=== PATIENT | female | born 1960 | race Caucasian/White ===

== ENCOUNTER 2024-12-16 11:42 | Outpatient (REF) | payer BC, MEDICARE, MEDICAID, SELFPAY ==
--- OUTSIDE RECORDS SUMMARY | 2024-12-16 14:21 | XMS_ITS | Encounter Summary ---
Author Organization [facility] Address [address] [place] [address] Care Team Providers Care Car Dispatcher Name Role Phone Pcp, No Primary Care Provider Unavailabl e Encounter Details Date Type Department Care Team (Late st Contact Info) Description 08/27/2018 3:35 PM EST Hospital Encounter [facility] [address] [place] [address] Nate Ortiz MD [address] [place] [address] Social History Tobacco Use Types Packs/Day Years Used Date Smoking Tobacco: Never Smokeless Tobacco: Never Alcohol Use Standard Drinks/Week Comments No 0 (1 standard drink = 0.6 oz pur e alcohol) OASIS D0700: Social Isolation Answer Da te Recorded Frequency of experiencing loneliness or isolatio n Never 12/22/2023 OASIS A1250: Transportation Answer Date Recorded Lack of Transportation (Medical) No 12/22/2023 Lack of Transportation (Non-Medical) No 12/22/2023 Patient Unable or Declines to Respond No 12/22/2023 AUDIT-C Answer Date Recorded Q1: How often do you have a drink containing alcohol? Never 10/18/2023 Q2: How many drinks containi ng alcohol do you have on a typical day when you are drinking? Patient does not drink Q3: How often do you have si x or more drinks on one occasion? Never 10/18/2023 PHQ-2 Answer Date Recorded PHQ-2 Total Score 4 11/10/2023 Physical Activity Answer Date Recorded On average, how many days pe r week do you engage in moderate to strenuous exercise (like a brisk walk)? 0 11/10/2023 On average, how many minutes do you exercise per day at this level? 0 11/10/2023 Sex and Gender Information Value Date Recorded Sex Assigned at Female 12/24/2022 11:31 AM EST Gender Identity Female 12/24/2022 11:31 AM EST Sexual Orientation Heterosexual (straight) 01/08 12:43 PM EDT COVID-19 Exposure Response Date Recorded In the last 10 days, have yo u been in contact with someone who was confirmed or suspected to have Coronavirus/COVID-19? No / Unsure 03/31/2023 8:21 AM EDT documented as of this encounter Plan of Treatment Upcoming Encounters Date Type Department Care Team (Late st Contact Info) Description 12/22/2024 11:30 AM EST Telemedicine [facility] [address] [phone] Cris Brarett PA-C [address] [place] [phone] 12/23/2024 2:30 PM EST Office Visit [facility] Department of Pulmonology [place] [address] [place] [address] 109 [place] [phone] [place] [address] [place] [address] 105 [place] [address] 04/04/2025 3:00 PM EDT Office Visit [facility] Department of Cardiology [place] [address] [place] [phone] Brennon Galvan PA [address] [place] [address] 04/07/2025 2:15 PM EDT Office Visit [facility] Department of Internal Medicine & Nephrology [place] [address] [facility] [address] [place] [address] Lalit Rodriguez MD [address] [facility] [address] [place] [address] documented as of this encounter Procedures Procedure Name Priority Date/Time Associated Diagnosis Comments XR CHEST 2 VIEWS Routine 08/27/2018 3:50 PM EST SOB (shortness of breath) documented in this encounter Results * XR Chest 2 views (08/27/2018 3:50 PM EST) Anatomical Region Laterality Modality Chest Computed Radiogr aphy 08/27/2018 3:52 PM EST Impressions 08/27/2018 3:55 PM EST 1. No acute disease seen in chest. No change compared to 01/09/2015. 2. Prior cholecystectomy. Narrative 08/27/2018 3:55 PM EST XR CHEST - TWO VIEWS: INDICATION: 57-year-old female with the flu and shortness of breath. Assess for secondary pneumonia. COMPARISON: 01/09/2015. TECHNIQUE: Upright PA and lateral x-ray views of the chest are obtained. FINDINGS: LUNGS: Normal. No focal airspace disease to suggest pneumonia. No change compared to 01/09/2015. PLEURA: No pleural effusion. No pneumothorax. HEART: No cardiomegaly. No central pulmonary vascular congestion. ?? MEDIASTINUM: Normal. No change compared to the prior exam. SKELETON: Normal. No acute fracture. No dislocation. No change compared to the prior exam. UPPER ABDOMEN: No acute findings. No free air. No specific bowel gas pattern. Surgical clips seen in the right upper quadrant from prior cholecystectomy. Procedure Note Thanh Frey MD - 08/27/2018 XR CHEST - TWO VIEWS: INDICATION: 57-year-old female with the flu and shortness of breath. Assess forsecondary pneumonia. COMPARISON: 01/09/2015. TECHNIQUE: Upright PA and lateral x-ray views of the chest are obtained. FINDINGS: LUNGS: Normal. No focal airspace disease to suggest pneumonia. No changecompared to 01/09/2015. PLEURA: No pleural effusion. No pneumothorax. HEART: No cardiomegaly. No central pulmonary vascular congestion. MEDIASTINUM: Normal. No change compared to the prior exam. SKELETON: Normal. No acute fracture. No dislocation. No change compared tothe prior exam. UPPER ABDOMEN: No acute findings. No free air. No specific bowel gaspattern. Surgical clips seen in the right upper quadrant from priorcholecystectomy. IMPRESSION: 1. No acute disease seen in chest. No change compared to 01/09/2015. 2. Prior cholecystectomy. Susan VARELA IMG DIAGNOSTIC JEET GING ORDERABLES documented in this encounter Visit Diagnoses Not on filedocumented in this encounter Care Teams Car Dispatcher Relationship Specialty Start Date End Date Pcp, No PCP - General General Medicine 11/20/16 06/01/19 documented as of this encounter
--- OUTSIDE RECORDS SUMMARY | 2024-12-16 14:21 | XMS_ITS | Encounter Summary ---
Author Organization [facility] Address [address] [place] [address] Care Team Providers Care Clay Digger Name Role Phone Lalit Rodriguez MD Primary Care Provider Ameya Tucker MD Unavailable [phone] Mercy Montoya APRN Unavailable Encounter Details Date Type Department Care Team (Late st Contact Info) Description 12/18/2022 Scanned Document [facility] [address] [place] [phone] Pete Nagy MD [address] [phone] Social History Tobacco Use Types Packs/Day Years Used Date Smoking Tobacco: Never Smokeless Tobacco: Never Alcohol Use Standard Drinks/Week Comments No 0 (1 standard drink = 0.6 oz pur e alcohol) Sex and Gender Information Value Date Recorded Sex Assigned at Female 12/24/2022 11:31 AM EST Gender Identity Female 12/24/2022 11:31 AM EST Sexual Orientation Heterosexual (straight) 01/08 12:43 PM EDT documented as of this encounter Plan of Treatment Upcoming Encounters Date Type Department Care Team (Late st Contact Info) Description 12/22/2024 11:30 AM EST Telemedicine [facility] 5 [facility] 2nd [place] [phone] Cris Barrett PA-C [address] [phone] 12/23/2024 2:30 PM EST Office Visit [facility] Department of Pulmonology [place] 1260 [facility] 109 [place] [phone] Barbara Hewitt MD 1260 [facility] 105 [place], [place] [phone] 04/04/2025 3:00 PM EDT Office Visit [facility] Department of Cardiology [place] [address] [place] [phone] Brennon Galvan PA [address] [place] [address] 04/07/2025 2:15 PM EDT Office Visit [facility] Department of Internal Medicine & Nephrology [place] [address] [phone] Lalit Rodriguez MD [address] [phone] documented as of this encounter Visit Diagnoses Not on filedocumented in this encounter Care Teams Clay Digger Relationship Specialty Start Date End Date Lalit Rodriguez MD [address] [phone] PCP - General Nephrology 08/12/19 Mercy Montoya APRN [address] [place] [address] PCP - [place] Commercial Attributed 03/20/24 Ameya Tucker MD [address] [place] [address] [address] Cardiovascular Disease 10/23/21 documented as of this encounter
--- OUTSIDE RECORDS SUMMARY | 2024-12-16 14:21 | XMS_ITS | Encounter Summary ---
Author Organization [facility] Address [address] [place] [address] Care Team Providers Care Fire Coordinator Name Role Phone Lalit Rodriguez MD Primary Care Provider Ameya Tucker MD Unavailable [phone] Mercy Montoya APRN Unavailable Reason for Visit * Reason Comments Medication Refill Encounter Details Date Type Department Care Team (Late st Contact Info) Description 05/31/[address] [facility] [address] [phone] Shelby Fung PA [address] [place] [address] [address] [place], [place] [phone] Moderate persistent asthma without complication Social History Tobacco Use Types Packs/Day Years [...] Exposure Response Date Recorded In the last month, have you been in contact with someone who was confirmed or suspected to have Coronavirus / COVID-19? No / Unsure 05/31/2021 3:18 PM EDT documented as of this encounter Plan of Treatment Upcoming Encounters Date Type Department Care Team (Late st Contact Info) Description 12/22/2024 11:30 AM EST Telemedicine [facility] 5 [facility] 2nd [place] [phone] Cris Barrett PA-C 5 [facility] 2nd [place] [address] 12/23/2024 2:30 PM EST Office Visit [facility] Department of Pulmonology [place] [address] [place] [address] 109 [place] [phone] Barbara Hewitt MD 1260 [facility] 105 [place], [place] [phone] 04/04/2025 3:00 PM EDT Office Visit [facility] Department of Cardiology [place] [address] [place] [phone] Brennon Galvan PA 289 [place] [address] 04/07/2025 2:15 PM EDT Office Visit [facility] Department of Internal Medicine & Nephrology [place] 85 [facility] [address] [place] [phone] Lalit Rodriguez MD 85 [facility] [address] [place], [place] [phone] documented as of this encounter Visit Diagnoses Diagnosis Moderate persistent asthma without complication documented in this encounter Care Teams Fire Coordinator Relationship Specialty Start Date End Date Lalit Rodriguez MD 85 [facility] 900 [place], [place] [phone] PCP - General Nephrology 08/12/19 Mrecy Montoya APRN 65 [place] [address] PCP - [place] Commercial Attributed 03/20/24 Ameya Tucker MD 1260 [facility] [place] [address] Cardiovascular Disease 10/23/21 documented as of this encounter
--- OUTSIDE RECORDS SUMMARY | 2024-12-16 14:21 | XMS_ITS | Encounter Summary ---
Author Organization [facility] Address [address] [place] [address] Care Team Providers Care Sales And Service Agent Name Role Phone Lalit Rodriguez MD Primary Care Provider Ameya Tucker MD Unavailable [phone] Mercy Montoya APRN Unavailable [phone] Reason for Visit * Reason Comments Medication Refill Encounter Details Date Type Department Care Team (Late st Contact Info) Description 12/20/[address] [facility] [address] [phone] Bhupinder Christopher MD [address] [place] [address] 207 [place], [place] [phone] Mild persistent asthma without complication Social History Tobacco [...] suspected to have Coronavirus/COVID-19? No / Unsure 12/23/2022 4:55 PM EST documented as of this encounter Plan of Treatment Upcoming Encounters Date Type Department Care Team (Late st Contact Info) Description 12/22/2024 11:30 AM EST Telemedicine [facility] 5 [facility] 2nd [place] [phone] Cris Barrett PA-C [address] [phone] 12/23/2024 2:30 PM EST Office Visit [facility] Department of Pulmonology [place] [address] [place] [address] 109 [place] [phone] Barbara Hewitt MD 1260 [facility] 105 [place], [place] [phone] 04/04/2025 3:00 PM EDT Office Visit [facility] Department of Cardiology [place] [address] [place] [phone] Brennon Galvan PA [address] [place] [address] 04/07/2025 2:15 PM EDT Office Visit [facility] Department of Internal Medicine & Nephrology [place] 85 [facility] [address] [place] [phone] Lalit Rodriguez MD 85 [facility] [address] [place], [place] [phone] documented as of this encounter Visit Diagnoses Diagnosis Mild persistent asthma without complication documented in this encounter Care Teams Sales And Service Agent Relationship Specialty Start Date End Date Lalit Rodriguez MD 85 [facility] [address] [place], [place] [phone] PCP - General Nephrology 08/12/19 Mercy Montoya APRN 65 [place] [address] PCP - [place] Commercial Attributed 03/20/24 Ameya Tucker MD 1260 [place] [address] Cardiovascular Disease 10/23/21 documented as of this encounter
--- OUTSIDE RECORDS SUMMARY | 2024-12-16 14:21 | XMS_ITS | Patient Health Record ---
Author Organization [facility] Address [address] [place] [address] Care Team Providers Care Pin Or Clip Fastener Name Role Phone ANDRE RODRÍGUEZ Unavailable [phone] REASON FOR REFERRAL No Information Encounters Encounter Location Date Provider Diagnosis [facility] [address] [place] [address] 03/26/2024 ANDRE RODRÍGUEZ PLAN OF TREATMENT No Information Insurance Providers Payer Name Payer Address Payer Phone Subscriber Number Group Number Insured Name Patient Relationship to Insured Coverage Start Date Coverage End Date [facility] [address] [place] [address] [phone] [id number] Roxanne Beal Self - patient is the insured
--- OUTSIDE RECORDS SUMMARY | 2024-12-16 14:21 | XMS_ITS ---
Author Name [facility] History of Medication Use Medication Directions Dispensed Refills Start Date End Date [facility] betamethasone acetate-betamethason e sodium phosphate (CELESTONE) injection 12 mg 12 mg, Intra-articular, Once PRN Procedure, Starting on Mervat 11/18/24 at 1345, For 1 dose 11/18/2024 11/18/2024 completed amLODIPine (NORVASC) 10 MG tablet Take 1 tablet (10 mg total) by mouth daily. 05/10/2021 10/07/2023 active hydrALAZINE (APRESOLINE) 10 MG tablet Take 1 tablet (10 mg total) by mouth 3 (three) times a day with meals. 03/03/2023 04/15/2023 active ubrogepant (Ubrelvy) 100 MG tablet Take 1 tablet (100 mg total) by mouth once as needed for migraine. Take 1 tablet as needed for migraine, may repeat 1 tablet in 2 hours if needed. Max of 2 tablets in 24 hours. 11/10/2023 active estradiol (ESTRACE) 0.01 % vaginal cream Insert 1 g into the vagina 2 (two) times a week. 04/17/2023 10/27/2023 active metoPROLOL SUCCINATE (TOPROL-XL) 50 MG 24 hr tablet Take 1 tablet (50 mg total) by mouth nightly. 05/10/2021 04/01/2023 active ARIPiprazole (ABILIFY) 15 MG tablet 10/29/2017 active hydrocortisone (HYTONE) 2.5 % ointment Apply topically 2 (two) times a day. 04/28/2023 active famotidine (PEPCID) 20 MG tablet Take 1 tablet (20 mg total) by mouth daily. 07/09/2022 active lisinopril (PRINIVIL,ZeSTRIL) 20 MG tablet Take 1 tablet (20 mg total) by mouth daily. 04/28/2023 05/01/2023 aborted LORazepam (ATIVAN) 0.5 MG tablet TAKE 1 TABLET BY MOUTH EVERY 4 HOURS NEEDED FOR ANXIETY 09/23/2023 10/27/2023 active LORazepam (ATIVAN) 1 MG tablet Take 1 tablet (1 mg total) by mouth 3 times daily (every 8 hours) as needed for anxiety. 10/29/2023 active Blood Pressure Kit Please check twice daily I10 I48.91 I67.1 R55 03/03/2024 active aspirin enteric coated (ECOTRIN LOW STRENGTH) 81 MG EC tablet Take 81 mg by mouth. 02/12/2024 active Arnuity Ellipta 200 MCG/ACT inhaler INHALE 1 PUFF BY MOUTH ONCE DAILY RINSE MOUTH AFTER USE 09/16/2023 12/16/2023 aborted ubrogepant (Ubrelvy) 50 MG tablet Take by mouth once as needed. 11/21/2021 05/23/2023 active zolpidem (AMBIEN) 10 MG tablet Take 10 mg by mouth nightly as needed. 10/29/2017 active pregabalin (LYRICA) 150 MG capsule Take 1 capsule (150 mg total) by mouth 2 (two) times a day. active Problems Problem Status Onset Date Problem Type Date of Resolution Source Cerebral aneurysm active 2011-02-20 [facility] Migraine with aura and with status migrainosus, not intractable active EncounterDiagnosisAct [facility] Syncope active 2023-10-18 Problem[facility] Asthma active 2015-03-02 ProblemAct [facility] Hyperlipidemia active 2023-04-[address] Trigeminal neuralgia active 2011-02-20 ProblemAct [facility] Benign essential hypertension active 2023-04-18 ProblemAct [facility] Allergic to radiographic dye active 2019-12-15 ProblemAct [facility] Mixed anxiety depressive disorder active 2009-11-09 ProblemAct [facility] ANDREA on CPAP active 2010-02-09 ProblemAct [facility] Headache active 2016-06-26 ProblemAct [facility] Immunizations Vaccine Date Source Lot Number Status Influenza, Quadrivalent (FLU ARIX, AFLURIA, FLULAVAL, FLUZONE) Preservative Free IM 10/23/2022 [facility] [id number] completed Tdap 02/20/2011 [facility] [id number] completed Influenza Inactivated/Split Preservative Free IM 08/10/2020 [facility] [id number] completed Influenza (AFLURIA/FLUZONE) Inactivated/Split Quadrivalent with Preservative IM 07/05/2021 [facility] [id number] completed Zoster Vaccine Recombinant (Shingrix) 03/05/2022 [facility] completed Pneumococcal Polysaccharide 23-Valent 12/15/2019 [facility] [id number] completed Influenza Inactivated/Split Preservative Free IM 07/05/2021 [facility] [id number] completed Zoster Vaccine Recombinant (Shingrix) [facility] Tdap 12/27/2021 [facility] completed
--- OUTSIDE RECORDS SUMMARY | 2024-12-16 14:21 | XMS_ITS | Clinical Summary ---
Author Organization [facility] Address [address] [place] [address] Care Team Providers Care Pipe Organ Builder Name Role Phone Vijaya Love NP Primary Care Provider [phone] Allergies Active Allergy Reactions Criticality Noted Date Comments Ciprofloxacin 11/10/2018 Codeine 11/10/2018 Hydromorphone 11/10/2018 Morphine 11/10/2018 Oxycodone-Acetaminophen 11/10/2018 Medications Medication Sig Dispensed Refills Start Date End Date Status albuterol (PROVENTIL HFA;VENTOLIN HFA) 108 (90 Base) MCG/ACT inhaler Inhale 2 puffs into the lungs every 6 (six) hours as needed for wheezing. 0 Active ARIPiprazole (ABILIFY) 15 MG tablet Take 15 mg by mouth daily. 0 Active aspirin 325 MG tablet Take 325 mg by mouth daily. 0 Active buPROPion (WELLBUTRIN SR) 150 MG 12 hr tablet Take 150 mg by mouth. 0 Active buPROPion (WELLBUTRIN XL) 300 MG 24 hr tablet Take 300 mg by mouth daily. 0 Active ClonazePAM (KLONOPIN PO) Take 3 mg by mouth 3 (three) times a day. 3 mg As needed for anxiety 0 Active cloNIDine (CATAPRES) tablet 0.1 mg Take 0.1 mg by mouth 2 (two) times a day. 0 Active gabapentin (NEURONTIN) 600 MG tablet Take 1,200 mg by mouth 4 (four) times a day. 0 Active lamoTRIgine (LAMICTAL) 100 MG tablet Take 200 mg by mouth 2 (two) times a day. 0 Active predniSONE (DELTASONE) tablet 20 mg Take 40 mg by mouth. Pt states she takes this as needed for asthma 0 Active omeprazole (PriLOSEC) 20 MG capsule Take 40 mg by mouth daily. Pt states that she takes this as needed 0 Active phenazopyridine (PYRIDIUM) 100 MG tablet Take 1 tablet (100 mg total) by mouth 3 (three) times a day after meals. 10 tablet 0 11/11/2018 Active ibuprofen (ADVIL,MOTRIN) 600 MG tablet Take 1 tablet (600 mg total) by mouth every 6 (six) hours as needed. 40 tablet 0 11/11/2018 Active Active Problems Problem Noted Date Diagnosed Date Left wrist pain 05/01/2018 Social History Tobacco Use Types Packs/Day Years Used Date Smoking Tobacco: Never Smokeless Tobacco: Never Alcohol Use Standard Drinks/Week Comments No 0 (1 standard drink = 0.6 oz pur e alcohol) Sex and Gender Information Value Date Recorded Sex Assigned at Female 11/10/2018 10:37 PM EST Gender Identity Not on file Sexual Orientation Not on file Last Filed Vital Signs Vital Sign Reading Time Taken Comments Blood Pressure 116/81 11/10/2018 10:01 PM EST Pulse 94 11/10/2018 10:01 PM EST Temperature 37.9 ??C (100.3 ??F) 11/10/2018 10:01 PM EST Respiratory Rate 20 11/10/2018 10:01 PM EST Oxygen Saturation 98% 11/10/2018 10:01 PM EST Inhaled Oxygen Concentration - - Weight - - Height - - Body Mass Index - - Plan of Treatment Health Maintenance Due Date Last Done Comments Hepatitis C Screening 1960 COVID-19 Vaccine (#1) 06/28/1961 Depression Screening 1972 Preventative Health Evaluation 1978 DTap / Tdap / Td (1 - Tdap) 12/27/1979 Cervical Cancer Screening (P ap Smear) 1981 Colon Cancer Screening (Colonoscopy) 2005 Breast Cancer Screening (Mammogram) 2010 Shingrix-Zoster Vaccine (1 of 2) 2010 Influenza Vaccine (#1) 2024 RSV Adult > 60+ Yrs or Pregn ant (1 - 1-dose 75+ series) 12/27/2035 Hepatitis B Vaccines Aged Out No long er eligible based on patient's age to complete this topic Pneumococcal Vaccine Aged Out No long er eligible based on patient's age to complete this topic RSV Ped < 20 months Aged Out No longe r eligible based on patient's age to complete this topic Care Teams Pipe Organ Builder Relationship Specialty Start Date End Date Vijaya Love NP [address] [place] [address] PCP - General Gerontology 11/10/18
--- OUTSIDE RECORDS SUMMARY | 2024-12-16 14:21 | XMS_ITS | Encounter Summary ---
Author Organization [facility] Address [address] [place] [address] Care Team Providers Care Sports Analyst Name Role Phone Lalit Rodriguez MD Primary Care Provider [phone] Ameya Tucker MD Unavailable [phone] Mercy Montoya APRN Unavailable Encounter Details Date Type Department Care Team (Late st Contact Info) Description 02/26/2024 Scanned Document [facility] Department [facility] Medicine & Nephrology [place] [address] [phone] Lalit Rodriguez MD 85 [facility] 900 [place] [address] Social History Tobacco Use Types Packs/Day Years [...] Description 12/22/2024 11:30 AM EST Telemedicine [facility] [address] [phone] Cris Barrett PA-C [address] [place] [phone] 12/23/2024 2:30 PM EST Office Visit [facility] Department of Pulmonology [place] [address] [place] [address] [address] [place] [phone] [place] [address] [place] [address] 105 [place] [address] 04/04/2025 3:00 PM EDT Office Visit [facility] Department of Cardiology [place] [address] [place] [phone] Brennon Galvan PA [address] [place] [address] 04/07/2025 2:15 PM EDT Office Visit [facility] Department of Internal Medicine & Nephrology [address] [phone] Lalit Rodriguez MD [address] [place] [phone] documented as of this encounter Visit Diagnoses Not on filedocumented in this encounter Care Teams Sports Analyst Relationship Specialty Start Date End Date Lalit Rodriguez MD [address] [place] [phone] PCP - General Nephrology 08/12/19 Mercy Montoya APRN [address] [place] [address] PCP - [place] Commercial Attributed 03/20/24 Ameya Tucker MD [address] [address] Cardiovascular Disease 10/23/21 documented as of this encounter
--- OUTSIDE RECORDS SUMMARY | 2024-12-16 14:21 | XMS_ITS | Encounter Summary ---
Author Organization Formerly [facility] Address [address] [place] [address] Care Team Providers Care Svp Research And Strategic Analysis Name Role Phone Lalit Rodriguez MD Primary Care Provider Ameya Tucker MD Unavailable [phone] Mercy Montoya APRN Unavailable [phone] Encounter Details Date Type Department Care Team (Late st Contact Info) Description 02/26/2024 Scanned Document [facility] Department [facility] & Nephrology [place] [address] [phone] Lalit Rodriguez MD 85 [facility] [address] [place] [address] Social History Tobacco Use Types [...] Description 12/22/2024 11:30 AM EST Telemedicine [facility] [address] [phone] Cris Barrett PA-C [address] [place] [phone] 12/23/2024 2:30 PM EST Office Visit [facility] Department of Pulmonology [place] [address] [place] [address] [address] [place] [phone] [place] [address] [place] [address] [address] [place] [address] 04/04/2025 3:00 PM EDT Office Visit [facility] Department of Cardiology [place] [address] [place] [phone] Brennon Galvan PA [address] [place] [phone] 04/07/2025 2:15 PM EDT Office Visit [facility] Department of Internal Medicine & Nephrology [address] [phone] Lalit Rodriguez MD [address] [place] [phone] documented as of this encounter Visit Diagnoses Not on filedocumented in this encounter Care Teams Svp Research And Strategic Analysis Relationship Specialty Start Date End Date Lalit Rodriguez MD [address] [place] [phone] PCP - General Nephrology 08/12/19 Mercy Montoya APRN [address] [place] [phone] PCP - [place] Commercial Attributed 03/20/24 Ameya Tucker MD [address] [address] Cardiovascular Disease 10/23/21 documented as of this encounter
--- OUTSIDE RECORDS SUMMARY | 2024-12-16 14:21 | XMS_ITS | Encounter Summary ---
Author Organization [facility] Address [address] [place] [address] Care Team Providers Care Sap Bw Consultant Name Role Phone Lalit Rodriguez MD Primary Care Provider Ameya Tucker MD Unavailable [phone] Mercy Montoya APRN Unavailable Encounter Details Date Type Department Care Team (Late st Contact Info) Description 03/02/2024 Scanned Document [facility]phrology [place] [address] [phone] Lalit Rodriguez MD 85 [facility] [address] [place] [address] Social History Tobacco Use Types [...] Description 12/22/2024 11:30 AM EST Telemedicine [facility] [address] [phone] Cris Barrett PA-C [address] [place] [phone] 12/23/2024 2:30 PM EST Office Visit [facility] Department of Pulmonology [place] [address] [place] [address] [address] [place] [phone] [place] [address] [place] [address] [address] [place] [address] 04/04/2025 3:00 PM EDT Office Visit [facility] Department of Cardiology [place] [address] [place] [phone] Brennon Galvan PA [address] [place] [phone] 04/07/2025 2:15 PM EDT Office Visit [facility] Department of Internal Medicine & Nephrology [address] [phone] Lalit Rodriguez MD [address] [place] [phone] documented as of this encounter Visit Diagnoses Not on filedocumented in this encounter Care Teams Sap Bw Consultant Relationship Specialty Start Date End Date Lalit Rodriguez MD [address] [place] [phone] PCP - General Nephrology 08/12/19 Mercy Montoya APRN [address] [place] [phone] PCP - [place] [employer] Attributed 03/20/24 Ameya Tucker MD [address] [address] Cardiovascular Disease 10/23/21 documented as of this encounter
--- OUTSIDE RECORDS SUMMARY | 2024-12-16 14:21 | XMS_ITS | Data Portability ---
Author Organization [place] - [facility], [facility] Address [address] [place] [address] Assessment Encounter Date Assessment Date Assessment LastModified by Organization Details LastModified Time 12/19/2015 12/19/2015 1.Normal general exam. 2.Yearly pelvic exam and mammogram recommended. 3. Healthy diet and exercise recommended. 4. 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 5. Screening for colon cancer with colonoscopy discussed and recommended. BMD ordered- Ca and D- will stop estrace cream [email or web address] Not available 12/19/2015 11:21:32 12/19/2016 12/19/2016 ? N ormal telephone station repairer exam. Encouraged healthy diet, excercise. Mammo ordered. Discussed breast self examination- aware that elevated b/p , will call PCP- will need colonoscopy f/u for polyps Not available 12/19/2016 12:07:24 07/28/2018 07/28/2018 Normal telephone station repairer exam. Encouraged healthy diet, excercise. Mammo ordered. Discussed breast self examination [email or web address] Not available 07/28/2018 12:00:10 Plan of Treatment Reminders Order Date Submit Date Provider Last Modified By Organization Details Last Modified Time Details Appointments None recorded. Lab urinalysis , dipstick 2017 018 [id number] In-Office Order, Internal Use Only DO Not Attach Compendium DO Not Attach Compendium, Do Not Delete/merge, [id number] 15:05:14 urinalysis , dipstick 2016 017 [email or web address] In-Office Order, Internal Use Only DO Not Attach Compendium DO Not Attach Compendium, Do Not Delete/merge, [id number] 7 14:26:10 urinalysis , dipstick 2015 016 [email or web address] In-Office Order, Internal Use Only DO Not Attach Compendium DO Not Attach Compendium, Do Not Delete/merge, [id number] 6 12:39:19 Referral None recorded. Procedures None recorded. Surgeries None recorded. Imaging DEXA, axial skeleton 2017 018 LV Not available 9 10:26:00 MAMMO, screening, digital, bilateral, w/ CAD 2016 017 LV Not available 7 10:06:52 bone density, hip and spine 2015 016 LV Not available 6 17:56:51 Medication Orders None recorded. Patient TargetsNo targets recorded. Patient Instructions Encounter Date Encounter Id Patient Instructions Last Modified By Organization Details Last Modified Time 12/19/2015 [id number] 1.Normal general exam. 2.Yearly pelvic exam and mammogram recommended. 3. Healthy diet and exercise recommended. 4. 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 5. Screening for colon cancer with colonoscopy discussed and recommended. BMD ordered- Ca and D- will stop estrace cream [email or web address] Not available 12/19/2015 11:21:32 1.Normal general exam. 2.Yearly pelvic exam and mammogram recommended. 3. Healthy diet and exercise recommended. 4. 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 5. Screening for colon cancer with colonoscopy discussed and recommended. BMD ordered- Ca and D- will stop estrace cream Not available 12/19/2015 11:21:32 12/19/2016 [id number] ? Normal telephone station repairer exam. Encouraged healthy diet, excercise. Mammo ordered. Discussed breast self examination- aware that elevated b/p , will call PCP- will need colonoscopy f/u for polyps [email or web address] Not available 12/19/2016 12:07:29 ? Normal telephone station repairer exam. Encouraged healthy diet, excercise. Mammo ordered. Discussed breast self examination- aware that elevated b/p , will call PCP- will need colonoscopy f/u for polyps [email or web address] Not available 12/19/2016 12:07:27 Reason for Referral None Reported. Results Created Date Observation Date Name Description Value Unit Range Abnormal Flag Note LastModifiedBy Organization Detail LastModifiedTime 12/20/19 17 12/19/2016 urina lysis , dipst ick Interpretati on negati ve Not Available In-Office Order Internal Use Only DO Not Attach Compendium DO Not Attach Compendium, Do Not Delete/merge, [id number] 12/19/2016 11:44:11 12/20/19 17 12/19/2016 urina lysis , dipst ick Leukocytes Negati ve Not Available In-Office Order Internal Use Only DO Not Attach Compendium DO Not Attach Compendium, Do Not Delete/merge, [id number] 12/19/2016 11:44:11 12/20/19 17 12/19/2016 urina lysis , dipst ick Nitrite negati ve Not Available In-Office Order Internal Use Only DO Not Attach Compendium DO Not Attach Compendium, Do Not Delete/merge, [id number] 12/19/2016 11:44:11 12/20/19 17 12/19/2016 urina lysis , dipst ick Protein Negati ve Not Available In-Office Order Internal Use Only DO Not Attach Compendium DO Not Attach Compendium, Do Not Delete/merge, [id number] 12/19/2016 11:44:11 12/20/19 17 12/19/2016 urina lysis , dipst ick Glucose Negati ve Not Available In-Office Order Internal Use Only DO Not Attach Compendium DO Not Attach Compendium, Do Not Delete/merge, [id number] 12/19/2016 11:44:11 12/19/19 16 12/19/2015 urina lysis , dipst ick Interpretati on negati ve Not Available In-Office Order Internal Use Only DO Not Attach Compendium DO Not Attach Compendium, Do Not Delete/merge, 12/19/2015 11:06:21 01/13/20 16 01/13/2016 creat inine w/ estim ated GFR (eGFR ), serum or plasm a creatinine 0.9 mg/dL 0.4-1. 1 Not Available [facility] [address] [place], [address] 01/13/2016 22:55:19 01/13/20 16 01/13/2016 creat inine w/ estim ated GFR (eGFR ), serum or plasm a eGFR 65 >59 MDRD in mL/mi n/1.7 3 sq meter s. For Afric an [employer] cans, multi ply by 1.21. Not Available [facility] [address] [place], [place], [facility] 01/13/2016 22:55:19 01/13/20 16 01/13/2016 calci um, serum or plasm a calcium 9.8 mg/dL 8.7-10 .5 Not Available [facility] [address] [place] [address], [facility] 01/13/2016 22:55:20 01/13/20 16 01/13/2016 alkal ine phosp hatas e, serum or plasm a alkaline phosphatase 85 U/L 32-122 Not Available [facility] [address] [place] [address], [facility] 01/13/2016 22:55:21 01/13/20 16 01/13/2016 album in, serum or plasm a albumin 4.6 g/dL 3.5-5. 0 Not Available [facility] [address] [place], [place], [facility] 01/13/2016 22:55:21 01/13/20 16 01/13/2016 TSH, ultra -sens itive , serum TSH, highly sensitive 0.68 mIU/L 0.27-4 .20 Not Available [facility] [address] [place] [address], [facility] 01/13/2016 22:55:22 01/13/20 16 01/13/2016 PTH (para thyro id hormo ne), intac t, serum or plasm a PTH, intact 56 pg/mL 15-65 Not Available [facility] [address] [place], [place], [facility] 01/13/2016 22:55:22 01/13/20 16 01/13/2016 vitam in D, 25-hy droxy , total , serum vitamin D, 25-hydroxy 34 NG/mL 30-100 Inter preti ve Data <10 ng/mL Defic ient 10-29 ng/mL Insuf ficie nt 30-10 0 ng/mL Suffi cient >100 ng/mL Poten tial Intox icati on Not Available [facility] [address] [facility], [place], [address] 01/13/2016 22:55:22 07/28/20 18 07/28/2018 urina lysis , dipst ick Leukocytes Negati ve Not Available In-Office Order Internal Use Only DO Not Attach Compendium DO Not Attach Compendium, Do Not Delete/merge, [id number] 07/28/2018 11:30:09 07/28/20 18 07/28/2018 urina lysis , dipst ick Nitrite negati ve Not Available In-Office Order Internal Use Only DO Not Attach Compendium DO Not Attach Compendium, Do Not Delete/merge, [id number] 07/28/2018 11:30:09 07/28/20 18 07/28/2018 urina lysis , dipst ick Protein Negati ve Not Available In-Office Order Internal Use Only DO Not Attach Compendium DO Not Attach Compendium, Do Not Delete/merge, [id number] 07/28/2018 11:30:09 07/28/20 18 07/28/2018 urina lysis , dipst ick Glucose Negati ve Not Available In-Office Order Internal Use Only DO Not Attach Compendium DO Not Attach Compendium, Do Not Delete/merge, [id number] 07/28/2018 11:30:09 01/01/20 16 12/28/2015 bone densi ty, hip and spine No observ ation record ed. [facility] [place] [address] [place] [address] [facility], [place], [address], 01/02/2016 14:35:10 01/15/20 17 01/13/2017 MAMMO , scree alejandra, digit al, bilat eral, w/ CAD HISTOR Y: Ambreen frye is 56 years old and is seen for screen ing. The vivianeen t has a histor y of bilate ral breast reduct ion more than 10 years ago - benign . The patien t has no person al histor y of breast or ovaria n cancer . The ambreen t has the follow ing family histor y of breast cancer : sister , at age 43 and patern al aunt. FILMS COMPAR ED: The presen t examin ation has been compar ed to prior imagin g griselie s dated 2014, 2001 and 2000. MAMMOG VALERIA FINDIN GS: The follow ing digita l mammog raphic views were obtain ed: bilate ral cranio caudal , bilate ral mediol ateral obliqu e. There are scatte red fibrog landul ar densit ies. (ACR BIRADS densit y Catego ry b) * No suspic ious masses , calcif icatio ns or other abnorm alitie s are seen in either breast . There are no signif icant change s from the prior study. Comput er-aid ed detect ion was utiliz ed by the radiol ogist in the interp retati on of this examin ation. IMPRES JOHN: There is no mammog raphic eviden ce of malign kelli. Routin e follow -up mammog valeria in 1 year is recomm ended. The patien t will receiv e a lay summar y of the result s of this breast imagin g exam. Lay summar ies for mammog jane examin ations will also identi fy the patien ts person al breast tissue compos ition as requir ed by state law. BIRADS Catego ry 1: Negati ve *BREAS T COMPOS ITION Breast compos ition descri ptions are based on the standa rd practi ce guidel victorino of the ACR [facility]-RAD S [place]. A refere nce guide is provid ed below. BREAST COMPOS ITION CATEGO PRINCESS - BIRADS VERSIO N V a. The breast s are almost entire ly fatty. b. There are scatte red areas of fibrog landul ar densit y. c. The breast s are hetero geneou sly dense, which may obscur e small masses . d. The breast s are extrem dorina dense, which lowers the sensit ivity of mammog jane. Patien ts in catego princess c. and d. may qualif y for supple mental screen ing exams. Thank you for referr ing your patien t to us, Elisa paul D.O. (Elect jerald bernice Signed - 2016 09:58) Copy: ROXY Mishra MD [facility] [address] [facility] [address] [place] [address] [phone] [email or web address] [facility] [place] [address], [place], [address], 01/15/2017 08:14:30 03/03/20 18 02/28/2018 MAMMO , scree alejandra, digit al, bilat eral, w/ CAD HISTOR Y: Ambreen frye is 57 years old and is seen for screen ing. The patien t has a histor y of bilate ral breast reduct ion more than 10 years ago - benign . The patien t has no person al histor y of breast or ovaria n cancer . The patien t has the follow ing family histor y of breast cancer : sister , at age 43 and patern al aunt. FILMS COMPAR ED: The presen t examin ation has been compar ed to prior imagin g studie s dated 2016 and 2014. MAMMOG VALERIA FINDIN GS: The follow ing digita l mammog raphic views were obtain ed: bilate ral cranio caudal , bilate ral mediol ateral obliqu e. There are scatte red fibrog landul ar densit ies. (ACR BIRADS densit y Catego ry b) * No suspic ious masses , calcif icatio ns or other abnorm alitie s are seen in either breast . There are no signif icant change s from the prior study. Comput er-aid ed detect ion was utiliz ed by the radiol ogist in the interp retati on of this examin ation. IMPRES JOHN: There is no mammog raphic eviden ce of malign kelli. Routin e follow -up mammog valeria in 1 year is recomm ended. The patien t will receiv e a lay summar y of the result s of this breast imagin g exam. Lay summar ies for mammog jane examin ations will also identi fy the patien ts person al breast tissue compos ition as requir ed by state law. BIRADS Catego ry 1: Negati ve Thank you for referr ing your ambreen t to us, Saman Tesfaye MD [phone] (Elect jerald bernice Signed - 2017 06:59) Copy: KAROL DUMONT R [facility] [address] [facility] [address] [facility] [address] [place] [place] [address] [phone] ZAC CRUZ NP [facility] [address] [place] [address] [phone] [email or web address] [facility] [address] [facility], [place], [address], 03/03/2018 09:40:11 05/17/20 19 05/14/2019 DEXA, axial skele ton EXAMIN ATION: BONE DENSIT OMETRY CLINIC AL INDICA TION: Osteop enia. Other specif ied disord ers of bone densit y and struct ure. COMPAR CHEMA: Previo us BD dated 2015 and baseli ne BD dated 2004. TECHNI QUE: Dual-e nergy x-ray absorp tiomet ry was perfor med of the lumbar spine and left hip. The images are of good techni prtaibha qualit y. Summar y result s are attach ed. FINDIN GS: AP SPINE L1-L4: Curren t: BMD 1.156 g/cm2, Z-scor e 0.6, T-scor e -0.2, normal , 3.8% decrea se from previo us, 7.4% decrea se from baseli ne (<5% change is not signif icant) . Prior: BMD 1.202 g/cm2. Baseli ne: BMD 1.249 g/cm2. LEFT FEMUR, NECK: Curren t: BMD 0.781 g/cm2, Z-scor e -0.9, T-scor e -1.9, osteop enia. Prior: BMD 0.794 g/cm2. Baseli ne: BMD 0.954 g/cm2. LEFT FEMUR, TOTAL: Curren t: BMD 0.853 g/cm2, Z-scor e -0.6, T-scor e -1.2, osteop enia, 1.6% decrea se from previo us, 8.3% decrea se from baseli ne (<5% change is not signif icant) . Prior: BMD 0.867 g/cm2. Baseli ne: BMD 0.930 g/cm2. IDENTI FIED RISK FACTOR S: Bilate ral oophor ectomy . Hyster ectomy . Low calciu m intake . Osteop orosis Early menopa use. Second andres osteop orosis . HISTOR Y OF FRACTU RE: None listed . MEDICA TIONS: None listed . IMPRES JOHN: 1. DIAGNO SIS: Osteop enia based on the lowest T-scor e value of -1.9 in the femora l neck applyi ng World Health Organi zation criter ia. 2. 10-YEA R FRACTU RE RISK PREDIC TION, FRAX: Major osteop orotic fractu re (clini pratibha spine, forear m, hip or should er) 4.6%. Hip fractu re 0.5%. RECOMM ENDATI ONS: 1. Treatm ent Recomm endati ons: NOF guidel victorino recomm end consid eratio n for treatm ent in postme nopaus al women and men age 50 and older presen kamala with the follow ing: -A hip or verteb ral (clini pratibha or morpho metric ) fractu re. -T-sco re less than or equal to -2.5 at the femora l neck or spine after approp riate evalua tion to exclud e second andres causes . -Low bone mass at the hip or spine and a 10-yea r fractu re probab ility by FRAX of greate r than or equal to 3% for hip fractu re or greate r than or equal to 20% for major osteop orotic fractu re based on the [place] adapte d WHO algori thm. 2. Other Recomm endati ons: All treatm ent decisi ons requir e clinic al judgme nt and consid eratio n of indivi dual patien t factor s, includ ing patien t prefer ences, comorb iditie s, previo us drug use, risk factor s not captur ed in the FRAX model (e.g. frailt y, falls, vitami n D defici ency, increa sed bone turnov er, interv al signif icant declin e in bone densit y) and possib le under or overes timati on of fractu re risk by FRAX. 3. Future Scan Recomm endati on: People with diagno sed cases of osteop orosis or at high risk for fractu re should have regula r bone minera l densit y tests. For patien ts eligib le for Medica re, routin e testin g is allowe d once every 2 years. The testin g freque ncy can be increa sed to one year for patien ts who have rapidl y progre ssing diseas e, those who are receiv ing or discon tinuin g medica l therap y to restor e bone mass, or have additi onal risk factor s. Thank you for referr ing your patien t to us, Sirisha Mckeon MD [phone] (Elect jerald queen Signed - 2018 10:21) [facility] [address] [place], [address], 05/19/2019 12:54:16 Result Notes None recorded. 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 Procedures Surgical History Date Name Laterality Status Provider Name and Address Organization Details Recorded Time 02/29/20 18 Date of Last Mammogram completed [facility] 07/28/2018 08:07:07 12/03/19 17 Date of Last Colonoscopy completed [facility] 01/08/2018 14:39:50 12/19/19 16 [id number] completed KAROL STANTON MD [address] [place] [address], [address] Floor, [place], [address], [place] - [facility] 12/19/2015 11:20:52 12/19/19 16 [id number] completed KAROL STANTON MD [address] [facility], [address] [place] [address], [place], [address], [place] - [facility] 12/19/2015 11:20:52 12/19/19 16 [id number] completed KAROL STANTON MD 175 [facility], [address] [place] [address], [place], [address], [place] - [facility] 12/19/2015 11:20:52 Hysterectomy completed Celina Conklin [place] - [facility] 01/08/2018 14:40:50 Breast Surgery completed [facility] 01/08/2018 14:41:04 Imaging Results Imaging Date Name Status LastModified by Organiz ation Details LastModified Time 12/28/2015 bone density, hip and spine completed [facility] [address] [place], [address], 01/02/2016 14:35:10 01/13/2017 MAMMO, screening, digital, bilateral, w/ CAD completed [address], [address], 01/15/2017 08:14:30 02/28/2018 MAMMO, screening, digital, bilateral, w/ CAD completed [address] [place] [address], [address], 03/03/2018 09:40:11 05/14/2019 DEXA, axial skeleton completed [facility] [address] [place], [address], 05/19/2019 12:54:16 Procedure Notes None recorded. Medical Equipment None Reported. Allergies Allergen ID Allergen Name Allergen Category Reaction Reaction Severity Criticality Documentation Date Start Date Code Code System Note Provider Name and Address Organization Details Recorded Time 9689176 latex environme nt,medica tion Not available Not available Not available 07/28/2018 35062 91 RxNorm Celina Conklin null, [facility] 8 11:30:51 359590 Iodinated contrast media (substanc e) medicatio n Not available Not available Not available 12/19/2015 57374 2004 SNOMED Bharti Henao null, [facility] 6 11:04:16 839519 codeine medicatio n Not available Not available Not available 12/19/2015 2670 RxNorm Bharti Henao null, [facility] 6 11:04:16 710579 morphine medicatio n Not available Not available Not available 12/19/2015 7052 RxNorm Bharti Henao null, [facility] 6 11:04:16 373038 iodine medicatio n Not available Not available Not available 12/19/2015 5933 RxNorm Bharti Henao null, [facility] 6 11:04:16 806344 Tylox medicatio n Not available Not available Not available 12/19/2015 19730 5 RxNorm Bharti Henao null, [facility] 6 11:04:16 Medications Name Sig Start Date Stop Date Status Note LastModified by Organization Details LastModified Time amoxicillin 500 mg capsule 07/28 completed Not Available Not Available Not Available clonidine HCl 0.1 mg tablet active Not Available Not Available Not Available gabapentin 600 mg tablet active Not Available Not Available Not Available albuterol sulfate 2.5 mg/3 mL (0.083 %) solution for nebulizatio n 07/28 completed Not Available Not Available Not Available azithromyci n 250 mg tablet 07/28 completed Not Available Not Available Not Available ibuprofen 800 mg tablet 12/19 completed Not Available Not Available Not Available benzonatate 200 mg capsule 07/28 completed Not Available Not Available Not Available Catapres 0.2 mg tablet Take 1 tablet twice a day by oral route. 12/19 completed Not Available Not Available Not Available promethazin e 12.5 mg tablet 12/19 completed Not Available Not Available Not Available prednisone 20 mg tablet 07/28 completed Not Available Not Available Not Available clonazepam 1 mg tablet Take 1 tablet 3 times a day by oral route. active Not Available Not Available No t Available metronidazo le 500 mg tablet 12/19 completed Not Available Not Available Not Available Neurontin 100 mg capsule Take 3 capsules 3 times a day by oral route. 07/28 completed Not Available Not Available Not Available losartan 25 mg tablet active Not Available Not Available No t Available Lamictal 100 mg tablet Take 1 tablet every day by oral route. 07/28 completed Not Available Not Available Not Available omeprazole 20 mg capsule,del ayed release 07/28 completed Not Available Not Available Not Available zolpidem 10 mg tablet 07/28 completed Not Available Not Available Not Available methylpredn isolone 4 mg tablets in a dose pack 07/28 completed Not Available Not Available Not Available naproxen 500 mg tablet 07/28 completed Not Available Not Available Not Available amoxicillin 875 mg-potassiu m clavulanate 125 mg tablet 12/19 completed Not Available Not Available Not Available Estrace 0.01% (0.1 mg/gram) vaginal cream Insert 1 g every week by vaginal route as directed for 90 days. 2014 active Not Available Not Available Not Avai lable metaxalone 800 mg tablet 07/28 completed Not Available Not Available Not Available aripiprazol e 10 mg tablet 07/28 completed Not Available Not Available Not Available aripiprazol e 15 mg tablet 07/28 completed Not Available Not Available Not Available bupropion HCl XL 300 mg 24 hr tablet, extended release active Not Available Not Available Not Available bupropion HCl XL 150 mg 24 hr tablet, extended release 07/28 completed Not Available Not Available Not Available multivitami n active Not Available Not Available Not Available ProAir HFA 90 mcg/actuati on aerosol inhaler 07/28 completed Not Available Not Available Not Available Vitals Date Recorded Body mass index (BMI) Body height Provider Name and Address Organization Details Last Updated DateTime 12/19/2015 30.8 kg/m2 160.02 cm KAROL STANTON MD [address] [place] [address], [address] Floor, [place], [address], [facility] 12/19/2015 11:20:52 Date Recorded Body weight Systolic blood pressure Diastolic blood pressure Provider Name and Address Organization Details Last Updated DateTime 12/19/2015 07862.0723 8 g 115 mm[Hg] 80 mm[Hg] Bharti Henao [facility] 12/19/2015 11:03:07 Date Recorded Body height Body weight Body mass index (BMI) Systolic blood pressure Diastolic blood pressure Provider Name and Address Organization Details Last Updated DateTime 12/19/2016 160.02 cm 39203.96 g 28.7 kg/m2 148 mm[Hg] 100 mm[Hg] Emeli Cristian antonio [facility] 7 11:41:37 Date Recorded Body height Body mass index (BMI) Body weight Systolic blood pressure Diastolic blood pressure Provider Name and Address Organization Details Last Updated DateTime 07/28/2018 160.02 cm 29.9 kg/m2 24536.67 g 130 mm[Hg] 80 mm[Hg] Celina Conklin [facility] 8 11:30:40 Social History Question Answer Notes LastModified by Organizat ion Details LastModified Time Tobacco Smoking Status Never Smoker Emeli Cristiana null, [facility] 12/19/2016 11:46:05 What Is Your Level Of Alcohol Consumption? None Information not available 12/19/2016 Drug Use? No Information no t available 12/19/2016 Do You Feel Safe At Home? Yes Information not available 12/19/2016 What Was The Date Of Your Most Recent Tobacco Screening? 07/28/2018 Information n ot available 05/12/2019 Sex: Unknown Functional Status Question Answer Note LastModified by Organization D etails LastModified Time What is your exercise level? None [email or web address] Information not available 07/28/2018 Mental Status None recorded. Family History Relationship Description Onset Age of this Age Resolved Age Notes LastModified by Organization Details LastModified Time Mother Hypertensive disorder [email or web address] Not available 2015 11:20:14 Medical History Condition Response Hypertension Y Gynecological History Statement/Question Response Current Control Method Hysterectom y Date of Last Mammogram 02/28/2018 Date of Last Colonoscopy 12/03/2016 Date of last DEXA 12/28/2015 Sexually Active? Y Obstetrics History GPAL:G 0 P 0 0 0 0 Past Encounters Encounter ID Performer Location Encounter Start Date Encounter Closed Date Diagnosis/Indication Diagnosis SNOMED-CT Code Diagnosis ICD10 Code Diagnosis Note [id number] KAROL STANTON MD [address] [place] [address] 12/19/2015 10:06:09 12/19/2015 11:28:51 Gynecologic examination 92658369 Z01.419 Screening for osteoporosis 257796731 Z13.991 [id number] KAROL STANTON MD [address] [place] [address] 12/19/2016 11:21:42 12/19/2016 12:13:39 Gynecologic examination [id number] Z01.419 Screening mammography 24 008786 Z12.31 [id number] KAROL STANTON MD [address] [place] [address] 07/28/2018 11:00:07 07/28/2018 12:03:35 Gynecologic examination [id number] Z01.419 Screening for osteoporosis 525914357 Z13.820 Health Concerns Section Related Observation LastModified by Organization Detai ls LastModified Time None Recorded Concern Status LastModified by Organization Details LastModified Time None Recorded Advance Directives Directive None Recorded Payers Encounter Date Sequence Insurance Name Policy Number Policy [place] Covered Member ID [place] Member ID Guarantor Name 12/19/2015 1 [place] [id number] Connor Beal [id number] Roxanne Beal 12/19/2016 1 [place] [id number] Connor Beal [id number] Roxanne Beal 07/28/2018 1 [place] [id number] Connor Beal [id number] Roxanne Beal Notes Date Note Type Note Provider Name and Address Organization Details Recorded Time 12/19/2015 text/html [facility] Annual GYNReported bypatient.History:n o gynecologic complaints Urinary symptoms:No incontinence Vulva:No genital lesion Vagina:Normal vaginal discharge Breast:No breast pain; No breast lump; No nipple discharge Menopausal Symptoms:No menopausal symptoms Psychological symptoms:No depression; No anxiety Preventive measures:Encourage self breast examination; Encourage regular exercise; Encourage regular mammograms starting age 40 KAROL STANTON MD [address] [place] [address], [address] [place] [address] 12/19/2015 11:23:01 12/19/2016 text/html [facility] Annual GYNReported bypatient.History:n o gynecologic complaints Menstrual cycle:Normal menses Urinary symptoms:No incontinence Vagina:Normal vaginal discharge Breast:No breast pain; No breast lump Current Contraception:Satis fied with current contraception Preventive measures:Encourage self breast examination; Encourage regular exercise KAROL STANTON MD [address] [place] [address] 12/19/2016 12:07:57 07/28/2018 text/html [facility] Annual GYNReported bypatient.History:n o gynecologic complaints Menstrual cycle:Normal menses Urinary symptoms:No incontinence Vagina:Normal vaginal discharge Breast:No breast pain; No breast lump Current Contraception:Satis fied with current contraception Preventive measures:Encourage self breast examination; Encourage regular exercise KAROL STANTON MD [address] [place] [address], [address] [place] [address] 07/28/2018 12:00:31 OBGyn Episode No OBEpisode recorded.
--- OUTSIDE RECORDS SUMMARY | 2024-12-16 14:21 | XMS_ITS | Encounter Summary ---
Author Organization [facility] Address [address] [place] [address] Care Team Providers Care Fish Roe Processor Name Role Phone Lalit Rodriguez MD Primary Care Provider Ameya Tucker MD Unavailable [phone] Mercy Montoya APRN Unavailable Encounter Details Date Type Department Care Team (Late st Contact Info) Description 09/19/2023 Scanned Document [facility] Department of Cardiology [address] [place] [address] Ameya Tucker MD 136 [place] [address] Social History Tobacco Use Types Packs/Day Years [...] Description 12/22/2024 11:30 AM EST Telemedicine [facility] 5 [facility] 2nd [place] [phone] Cris Barrett PA-C [address] [place] [phone] 12/23/2024 2:30 PM EST Office Visit [facility] Department of Pulmonology [place] 1260 [facility] [address] [place] [address] Barbara Hewitt MD 1260 [facility] 105 [place], [place] [phone] 04/04/2025 3:00 PM EDT Office Visit [facility] Department of Cardiology [place] [address] [place] [address] Brennon Galvan PA [address] [place] [address] 04/07/2025 2:15 PM EDT Office Visit [facility] Department of Internal Medicine & Nephrology [place] [address] [phone] Lalit Rodriguez MD [address] [phone] documented as of this encounter Visit Diagnoses Not on filedocumented in this encounter Care Teams Fish Roe Processor Relationship Specialty Start Date End Date Lalit Rodriguez MD [address] [phone] PCP - General Nephrology 08/12/19 Mercy Montoya APRN 65 [place] [address] PCP - [place] Commercial Attributed 03/20/24 Ameya Tucker MD [address] Daniel Ravi [address] [address] Cardiovascular Disease 10/23/21 documented as of this encounter
--- OUTSIDE RECORDS SUMMARY | 2024-12-16 14:21 | XMS_ITS | Encounter Summary ---
Author Organization [facility] Address [address] [place] [address] Care Team Providers Care Coroner/Medical Examiner Name Role Phone Lalit Rodriguez MD Primary Care Provider Ameya Tucker MD Unavailable [phone] Mercy Montoya APRN Unavailable Encounter Details Date Type Department Care Team (Late st Contact Info) Description 02/25/2024 Scanned Document [address] [place] [phone] Provider, Generic Social History Tobacco Use Types Packs/Day Years [...] Description 12/22/2024 11:30 AM EST Telemedicine [facility] [address] [phone] Cris Barrett PA-C [address] [place] [phone] 12/23/2024 2:30 PM EST Office Visit [facility] Physicians Department of Pulmonology [place] [address] [place] [address] 109 [place] [phone] Barbara Hewitt MD 1260 [facility] 105 [place] [address] 04/04/2025 3:00 PM EDT Office Visit [facility] Department of Cardiology [place] [address] [place] [address] Brennon Galvan PA [address] [place] [address] 04/07/2025 2:15 PM EDT Office Visit [facility] Department of Internal Medicine & Nephrology [place] 85 [facility] [address] [place] [address] Lalit Rodriguez MD [address] [phone] documented as of this encounter Visit Diagnoses Not on filedocumented in this encounter Care Teams Coroner/Medical Examiner Relationship Specialty Start Date End Date Lalit Rodriguez MD [address] [phone] PCP - General Nephrology 08/12/19 Mercy Montoya APRN [address] [place] [phone] PCP - [place] Commercial Attributed 03/20/24 Ameya Tucker MD 1260 [facility] [address] [phone] Cardiovascular Disease 10/23/21 documented as of this encounter
--- OUTSIDE RECORDS SUMMARY | 2024-12-16 14:21 | XMS_ITS | Encounter Summary ---
Author Organization [facility] Address [address] [place] [address] Care Team Providers Care Admissions Officer Name Role Phone Lalit Rodriguez MD Primary Care Provider Ameya Tucker MD Unavailable [phone] Mercy Montoya APRN Unavailable Encounter Details Date Type Department Care Team (Late st Contact Info) Description 02/26/2024 Scanned Document [facility] Department of Internal Medicine & Nephrology [place] [address] [address] Lalit Rordiguez MD 85 [facility] 900 [place] [address] Social History Tobacco Use Types [...] Description 12/22/2024 11:30 AM EST Telemedicine [facility] [address] [address] Cris Barrett PA-C [address] [place] [phone] 12/23/2024 2:30 PM EST Office Visit [facility] Department of Pulmonology [place] [address] [place] [address] 109 [place] [address] [place] [address] [place] [address] 105 [place] [address] 04/04/2025 3:00 PM EDT Office Visit [facility] Department of Cardiology [place] [address] [place] [address] Brennon Galvan PA [address] [place] [address] 04/07/2025 2:15 PM EDT Office Visit [facility] Department of Internal Medicine & Nephrology [address] [phone] Lalit Rodriguez MD [address] [place] [phone] documented as of this encounter Visit Diagnoses Not on filedocumented in this encounter Care Teams Admissions Officer Relationship Specialty Start Date End Date Lalit Rodriguez MD [address] [place] [phone] PCP - General Nephrology 08/12/19 Mercy Montoya APRN [address] [place] [address] PCP - [place] Commercial Attributed 03/20/24 Ameya Tuckre MD [address] [address] Cardiovascular Disease 10/23/21 documented as of this encounter
--- OUTSIDE RECORDS SUMMARY | 2024-12-16 14:21 | XMS_ITS | Encounter Summary ---
Author Organization [facility] Address [address] [place] [address] Care Team Providers Care Stallion Keeper Name Role Phone Lalit Rodriguez MD Primary Care Provider [phone] Ameya Tucker MD Unavailable [phone] Mercy Montoya APRN Unavailable Encounter Details Date Type Department Care Team (Late st Contact Info) Description 09/15/2023 Scanned Document [facility] Department of Internal Medicine & Nephrology [place] [address] [address] Lalit Rodriguez MD 85 [facility] 900 [place], [place] [phone] Social History Tobacco Use Types Packs/Day Years [...] Info) Description 12/22/2024 11:30 AM EST Telemedicine [facility] 5 [facility] [address] [facility] [place] [phone] Cris Barrett PA-C [address] [phone] 12/23/2024 2:30 PM EST Office Visit [facility]icians Department of Pulmonology [place] 1260 [facility] 109 [place] [phone] Barbara Hewitt MD 1260 [facility] 105 [place], [place] [phone] 04/04/2025 3:00 PM EDT Office Visit [facility] Physicians Department of Cardiology [place] [address] [place] [address] Brennon Galvan PA [address] [place] [address] 04/07/2025 2:15 PM EDT Office Visit [facility] Department of Internal Medicine & Nephrology [place] [address] [phone] Lalit Rodriguez MD [address] [phone] documented as of this encounter Visit Diagnoses Not on filedocumented in this encounter Care Teams Stallion Keeper Relationship Specialty Start Date End Date Lalit Rodriguez MD [address] [phone] PCP - General Nephrology 08/12/19 Mercy Montoya APRN [address] [place] [address] PCP - [place] Commercial Attributed 03/20/24 Ameya Tucker MD [address] Ravi [address] [address] Cardiovascular Disease 10/23/21 documented as of this encounter
--- OUTSIDE RECORDS SUMMARY | 2024-12-16 14:21 | XMS_ITS | Encounter Summary ---
Author Organization [facility] Address [address] [place] [address] Care Team Providers Care Senior Engineering Specialist Name Role Phone Pcp, No Primary Care Provider Unavailabl e Encounter Details Date Type Department Care Team (Late st Contact Info) Description 04/21/2018 5:35 PM EDT Hospital Encounter [facility] 1026 [place] [address] Nate Ortiz MD 1000 [place] [address] Social History Tobacco Use Types Packs/Day Years [...] Description 12/22/2024 11:30 AM EST Telemedicine [facility] [address] [address] Cris Barrett PA-C [address] [place] [phone] 12/23/2024 2:30 PM EST Office Visit [facility] Physicians Department of Pulmonology [place] [address] [place] [address] 109 [place] [phone] Barbara Hewitt MD 1260 [facility] 105 [place] [address] 04/04/2025 3:00 PM EDT Office Visit [facility] Physicians Department of Cardiology [place] [address] [place] [address] Brennon Galvan PA [address] [place] [address] 04/07/2025 2:15 PM EDT Office Visit [facility] Physicians Department of Internal Medicine & Nephrology [place] 85 [facility] 900 [place] [address] Lalit Rodriguez MD 85 [facility] 900 [place] [address] documented as of this encounter Procedures Procedure Name Priority Date/Time Associated Diagnosis Comments XR WRIST 3+ VIEWS-LEFT Routine 04/21/2018 5:40 PM EDT Left wrist pain documented in this encounter Results * XR Wrist 3+ views-Left (04/21/2018 5:40 PM EDT) Anatomical Region Laterality Modality Wrist Left Computed Radiogr aphy 04/21/2018 5:41 PM EDT Impressions 04/21/2018 5:41 PM EDT 1.No acute fracture or dislocation of the left wrist. If an acute ??scaphoid fracture or game keeper's thumb injury is suspected based on physical exam, MRI should be the next step in evaluation--provided no contraindications--as outlined in the ACR Appropriateness Criteria for imaging in the setting of acute hand and wrist injury and negative x-ray. Otherwise, CT without contrast may be obtained if there is persistent clinical concern for a radiographically occult acute fracture. Narrative 04/21/2018 5:41 PM EDT EXAM: XR WRIST 3+ VIEWS-LEFT on 04/21/2018 5:35 PM INDICATION: RICHARD BEAL is a 57 years old Female with a submitted history of lateral left wrist pain. Left wrist pain COMPARISON(S): None. TECHNIQUE: AP, lateral, and oblique radiographs of the left wrist were obtained. FINDINGS: BONES: Normal mineralization without an acute fracture. ALIGNMENT: Anatomic without subluxation or dislocation. The scapholunate and lunotriquetral distances are symmetric. The carpal arcs of [place] are intact. The carpometacarpal relationships are maintained. JOINTS: No narrowing, erosions or osteophytes. SOFT TISSUES: No appreciable soft tissue swelling, subcutaneous emphysema or radio-opaque foreign object. OTHER: None. Procedure Note Virgil Starkey MD - 04/21/2018 EXAM: XR WRIST 3+ VIEWS-LEFT on 04/21/2018 5:35 PM INDICATION: RICHARD BEAL is a 57 years old Female with a submittedhistory of lateral left wrist pain. Left wrist pain COMPARISON(S): None. TECHNIQUE: AP, lateral, and oblique radiographs of the left wrist wereobtained. FINDINGS: BONES: Normal mineralization without an acute fracture. ALIGNMENT: Anatomic without subluxation or dislocation. The scapholunateand lunotriquetral distances are symmetric. The carpal arcs of Gilula areintact. The carpometacarpal relationships are maintained. JOINTS: No narrowing, erosions or osteophytes. SOFT TISSUES: No appreciable soft tissue swelling, subcutaneous emphysemaor radio-opaque foreign object. OTHER: None. IMPRESSION: 1.No acute fracture or dislocation of the left wrist. If an acutescaphoid fracture or game keeper's thumb injury is suspected based onphysical exam, MRI should be the next step in evaluation--provided nocontraindications--as outlined in the ACR Appropriateness Criteria for imaging in the setting of acute hand andwrist injury and negative x-ray. Otherwise, CT without contrast may beobtained if there is persistent clinical concern for a radiographicallyoccult acute fracture. Susan [facility] JEET YOSSI ORDERABLES documented in this encounter Visit Diagnoses Not on filedocumented in this encounter Care Teams Senior Engineering Specialist Relationship Specialty Start Date End Date Pcp, No PCP - General General Medicine 11/20/16 06/01/19 documented as of this encounter
--- OUTSIDE RECORDS SUMMARY | 2024-12-16 14:21 | XMS_ITS | Encounter Summary ---
Author Organization [facility] Address [address] [place] [address] Care Team Providers Care Curator Of Education Name Role Phone Lalit Rodriguez MD Primary Care Provider Ameya Tucker MD Unavailable [phone] Mercy Montoya APRN Unavailable Encounter Details Date Type Department Care Team (Late st Contact Info) Description 02/19/2024 Scanned Document [facility] Department of Internal Medicine & Nephrology [place] [address] [phone] Lalit Rodriguez MD 85 [facility] 900 [place] [address] Social History Tobacco Use Types [...] Description 12/22/2024 11:30 AM EST Telemedicine [facility] [address] [phone] Cris Barrett PA-C [address] [place] [phone] 12/23/2024 2:30 PM EST Office Visit [facility] Physicians Department of Pulmonology [place] [address] [place] [address] 109 [place] [phone] [place] [address] [place] [address] 105 [place] [address] 04/04/2025 3:00 PM EDT Office Visit [facility] Department of Cardiology [place] [address] [place] [address] Brennon Galvan PA [address] [place] [address] 04/07/2025 2:15 PM EDT Office Visit [facility] Physicians Department of Internal Medicine & Nephrology [address] [phone] Lalit Rodriguez MD [address] [place] [phone] documented as of this encounter Visit Diagnoses Not on filedocumented in this encounter Care Teams Curator Of Education Relationship Specialty Start Date End Date Lalit Rodriguez MD [address] [place] [phone] PCP - General Nephrology 08/12/19 Mercy Montoya APRN [address] [place] [address] PCP - [place] Commercial Attributed 03/20/24 Ameya Tucker MD [address] [address] Cardiovascular Disease 10/23/21 documented as of this encounter
--- OUTSIDE RECORDS SUMMARY | 2024-12-16 14:22 | XMS_ITS | Encounter Summary ---
Author Organization [facility] Address [address] [place] [address] Care Team Providers Care Resin Remover Name Role Phone Lalit Rodriguez MD Primary Care Provider Ameya Tucker MD Unavailable [phone] Mercy Montoya APRN Unavailable [phone] Encounter Details Date Type Department Care Team (Late st Contact Info) Description 07/30/2019 Scanned Document [facility] [address] [facility] [place] [place] 5 [place] [address] Padmini Wilcox PA [address] [place] [address] [phone] Social History Tobacco Use Types Packs/Day Years [...] Info) Description 12/22/2024 11:30 AM EST Telemedicine [address] 2nd [place] [address] Cris Barrett PA-C [address] [phone] 12/23/2024 2:30 PM EST Office Visit [facility] Physicians Department of Pulmonology [place] 1260 [facility] [address] [place] [phone] Barbara Hewitt MD 1260 [facility] 105 [place], [place] [phone] 04/04/2025 3:00 PM EDT Office Visit [facility] Department of Cardiology [place] [address] [place] [address] Brennon Galvan PA [address] [place] [address] 04/07/2025 2:15 PM EDT Office Visit [facility] Department of Internal Medicine & Nephrology [place] [address] [phone] Lalit Rodriguez MD [address] [phone] documented as of this encounter Visit Diagnoses Not on filedocumented in this encounter Care Teams Resin Remover Relationship Specialty Start Date End Date Lalit Rodriguez MD [address] [phone] PCP - General Nephrology 08/12/19 Mercy Montoya APRN [address] [place] [address] PCP - [place] Commercial Attributed 03/20/24 Ameya Tucker MD 1260 Daniel[address] Ravi [address] [address] Cardiovascular Disease 10/23/21 documented as of this encounter
--- OUTSIDE RECORDS SUMMARY | 2024-12-16 14:22 | XMS_ITS | Encounter Summary ---
Author Organization [facility] Address [address] [place] [address] Care Team Providers Care Oil Well Logger Name Role Phone Lalit Rodriguez MD Primary Care Provider Ameya Tucker MD Unavailable [phone] Mercy Montoya APRN Unavailable Encounter Details Date Type Department Care Team (Late st Contact Info) Description 07/29/2019 Scanned Document [facility] [address] [place] [address] 815 [place] [address] Joshua Miller MD Needs Valid Address Social History Tobacco Use Types Packs/Day Years [...] Info) Description 12/22/2024 11:30 AM EST Telemedicine [facility] [address] [phone] Cris Barrett PA-C [address] [phone] 12/23/2024 2:30 PM EST Office Visit [facility] Department of Pulmonology [place] 1260 [facility] 109 [place] [phone] Barbara Hewitt MD 1260 [facility] 105 [place] [address] 04/04/2025 3:00 PM EDT Office Visit [facility] Department of Cardiology [place] [address] [facility] [address] [place] [address] Brennon Galvan PA [address] [place] [address] 04/07/2025 2:15 PM EDT Office Visit [facility] Department of Internal Medicine & Nephrology [place] [address] [address] Lalit Rodriguez MD [address] [phone] documented as of this encounter Visit Diagnoses Not on filedocumented in this encounter Care Teams Oil Well Logger Relationship Specialty Start Date End Date Lalit Rodriguez MD [address] [place] [phone] PCP - General Nephrology 08/12/19 Mercy Montoya APRN [address] [place] [address] PCP - [place] Commercial Attributed 03/20/24 Ameya Tucker MD [address] [place] [address] [address] Cardiovascular Disease 10/23/21 documented as of this encounter
--- OUTSIDE RECORDS SUMMARY | 2024-12-16 14:22 | XMS_ITS | Encounter Summary ---
Author Organization [employer] Address 75 [facility] 7 [place] [address] Care Team Providers Care Button Broacher Name Role Phone Tl Clark MD Primary Care Prov ider Reason for Visit * Reason Onset Date Comments Medication Question 10/11/2024 Encounter Details Date Type Department Care Team ([facility] st Contact Info) Description 10/11/2024 Telephone [facility] MEDICINE [address] [place] [address] Tl Clark MD [address] [place], [place] [phone] Medication Question Social History Tobacco Use Types Packs/Day Years Used Date Smoking Tobacco: Never Smokeless Tobacco: Never Alcohol Use Standard Drinks/Week Comments Never 0 (1 standard drink = 0.6 oz pur e alcohol) Comments Unknown Sex and Gender Information Value Date Recorded Sex Assigned at Female 06/25/2024 8:19 AM EDT Legal Sex Female 11:04 AM EDT Gender Identity Female 06/25/2024 8:19 AM EDT Sexual Orientation Straight 06/25/2024 8: 19 AM EDT documented as of this encounter Miscellaneous Notes * Telephone Encounter - Glory Henley RN - 10/15/2024 10:59 AM EST Telephone call returned to patient in regards to below message. Patient stating per previous appointment with PCP with this medication being denied, patient's next step is referral to endo. Patient verbalized understanding and denied having any further questions or concerns at this time. Patient tofollow up as needed. * Telephone Encounter - Michelle Vizcaino - 10/14/2024 11:57 AM EST Tc from pt requesting status of referral to a Manager Technology. Callback requested [phone] * Telephone Encounter - Lina Arellanoiago - 10/11/2024 1:24 PM EST Tc of pt regarding Wegovy med was denied. The patient requests a referral to an Manager Technology andalso a call back. Please contact: [phone] (Nicaraguan) documented in this encounter Plan of Treatment Upcoming Encounters Date Type Department Care Team (Late st Contact Info) Description 01/05/2025 3:15 PM EDT Office Visit [facility] [address] [place] [address] Tl Clark MD [address] [place] [address] documented as of this encounter Visit Diagnoses Not on filedocumented in this encounter Care Teams Button Broacher Relationship Specialty Start Date End Date Tl Clark MD [address] [place] [address] PCP - General Internal Medicine 06/25/24 documented as of this encounter
--- OUTSIDE RECORDS SUMMARY | 2024-12-16 14:22 | XMS_ITS | Encounter Summary ---
Author Organization [facility] Address [address] [place] [address] Care Team Providers Care Front Office Administrator Name Role Phone Lalit Rodriguez MD Primary Care Provider Ameya Tucker MD Unavailable [phone] Mercy Montoya APRN Unavailable Encounter Details Date Type Department Care Team (Late st Contact Info) Description 06/05/2019 Telephone [facility] 10[address] [place] [address] Mamie Robles, AVERY [address] [place] [address] Social History Tobacco Use Types Packs/Day Years [...] Info) Description 12/22/2024 11:30 AM EST Telemedicine [address] 2nd [place] [phone] Cris Barrett PA-C [address] [phone] 12/23/2024 2:30 PM EST Office Visit [facility] Department of Pulmonology [place] [address] [place] [address] [address] [place] [phone] Barbara Hewitt MD 1260 [facility] [place] 105 [place], [place] [phone] 04/04/2025 3:00 PM EDT Office Visit [facility] Department of Cardiology [place] [address] [place] [phone] Brennon Galvan PA [address] [place] [address] 04/07/2025 2:15 PM EDT Office Visit [facility] Department of Internal Medicine & Nephrology [place] [address] [phone] Lalit Rodriguez MD [address] [phone] documented as of this encounter Visit Diagnoses Not on filedocumented in this encounter Care Teams Front Office Administrator Relationship Specialty Start Date End Date Lalit Rodriguez MD [address] [place] [address] PCP - General Nephrology 08/12/19 Mercy Montoya APRN [address] [place] [address] PCP - [place] Commercial Attributed 03/20/24 Ameya Tucker MD [address] [address] Cardiovascular Disease 10/23/21 documented as of this encounter
--- OUTSIDE RECORDS SUMMARY | 2024-12-16 14:22 | XMS_ITS ---
Author Organization [facility] Address [address] [place] [address] Care Team Providers Care Distributor Operator Name Role Phone ANDRE RODRÍGUEZ Unavailable [phone] REASON FOR VISIT insurance Encounters Encounter Location Date Provider Diagnosis [facility] [address] [place] [address] 03/26/2024 ANDRE RODRÍGUEZ PLAN OF TREATMENT No Information Progress Notes * Khushboo BEALOB:1960 (63 yo F)Acc No.[id number]:03/26/2024 Patient:??Roxanne BEAL :1960?Age:63 Y?Sex:Fe male Address:[place] [address] * true * Date:??
--- OUTSIDE RECORDS SUMMARY | 2024-12-16 14:22 | XMS_ITS | Encounter Summary ---
Author Organization [facility] Address [address] [place] [address] Care Team Providers Care Public Records Researcher Name Role Phone Lalit Rodriguez MD Primary Care Provider Ameya Tucker MD Unavailable [phone] Mercy Montoya APRN Unavailable Encounter Details Date Type Department Care Team (Late st Contact Info) Description 03/16/2024 Scanned Document [facility] & Nephrology [place] [address] [address] Lalit Rodriguez MD 85 [facility] 900 [place], [place] [phone] Social History Tobacco Use Types Packs/Day Years [...] Description 12/22/2024 11:30 AM EST Telemedicine [facility] [address] [phone] Cris Barrett PA-C [address] [place] [phone] 12/23/2024 2:30 PM EST Office Visit [facility] Physicians Department of Pulmonology [place] [address] [place] [address] [address] [place] [phone] [place] [address] [place] [address] 105 [place] [address] 04/04/2025 3:00 PM EDT Office Visit [facility] Department of Cardiology [place] [address] [place] [phone] Brennon Galvan PA [address] [place] [address] 04/07/2025 2:15 PM EDT Office Visit [facility] Department of Internal Medicine & Nephrology [address] [phone] Lalit Rodriguez MD [address] [place] [phone] documented as of this encounter Visit Diagnoses Not on filedocumented in this encounter Care Teams Public Records Researcher Relationship Specialty Start Date End Date Lalit Rodriguez MD [address] [place] [phone] PCP - General Nephrology 08/12/19 Mercy Montoya APRN [address] [place] [address] PCP - [place] Commercial Attributed 03/20/24 Ameya Tucker MD [address] [address] Cardiovascular Disease 10/23/21 documented as of this encounter
--- OUTSIDE RECORDS SUMMARY | 2024-12-16 14:22 | XMS_ITS | Encounter Summary ---
Author Organization [facility] Address [address] [place] [address] Care Team Providers Care Prosthetic Assistant Name Role Phone Lalit Rodriguez MD Primary Care Provider Ameya Tucker MD Unavailable [phone] Mercy Montoya APRN Unavailable [phone] Encounter Details Date Type Department Care Team (Late st Contact Info) Description 10/23/2023 Scanned Document [facility] Neuro[facility] [address] [place] [phone] Pete Nagy MD [address] [address] Social History Tobacco Use Types Packs/Day Years Used Date Smoking Tobacco: Never Smokeless Tobacco: Never Alcohol Use Standard Drinks/Week Comments No 0 (1 standard drink = 0.6 oz pur e alcohol) OASIS D0700: Social Isolation Answer Da te Recorded Frequency of experiencing loneliness or isolatio n Never 10/26/2023 OASIS A1250: Transportation Answer Date Recorded Lack of Transportation (Medical) No 10/26/2023 Lack of Transportation (Non-Medical) No 10/26/2023 Patient Unable or Declines to Respond No 10/26/2023 AUDIT-C Answer Date Recorded Q1: How often do you have a drink containing alcohol? Never 10/18/2023 Q2: How many drinks containi ng alcohol do you have on a typical day when you are drinking? Patient does not drink Q3: How often do you have si x or more drinks on one occasion? Never 10/18/2023 Sex and Gender Information Value Date Recorded Sex Assigned at Female 12/24/2022 11:31 AM EST Gender Identity Female 12/24/2022 11:31 AM EST Sexual Orientation Heterosexual (straight) 01/08 12:43 PM EDT documented as of this encounter Plan of Treatment Upcoming Encounters Date Type Department Care Team (Late st Contact Info) Description 12/22/2024 11:30 AM EST [facility] [address] [phone] Cris Barrett PA-C [address] [place] [phone] 12/23/2024 2:30 PM EST Office Visit [facility] Department of Pulmonology [place] [address] [place] [address] 109 [place] [phone] Barbara Hewitt MD 1260 [facility] 105 [place], [place] [phone] 04/04/2025 3:00 PM EDT Office Visit [facility] Department of Cardiology [place] [address] [place] [address] Brennon Galvan PA [address] [place] [address] 04/07/2025 2:15 PM EDT Office Visit [facility] Department of Internal Medicine & Nephrology [place] 85 [facility] [address] [place] [phone] Lalit Rodriguez MD 85 [facility] [address] [place] [address] documented as of this encounter Visit Diagnoses Not on filedocumented in this encounter Care Teams Prosthetic Assistant Relationship Specialty Start Date End Date Lalit Rodriguez MD [address] [place] [address] PCP - General Nephrology 08/12/19 Mercy Montoya APRN [address] [place] [address] PCP - [place] Commercial Attributed 03/20/24 Ameya Tucker MD [address] [address] Cardiovascular Disease 10/23/21 documented as of this encounter
--- OUTSIDE RECORDS SUMMARY | 2024-12-16 14:22 | XMS_ITS | Encounter Summary ---
Author Organization [facility] Address [address] [place] [address] Care Team Providers Care Photograph Mounter Name Role Phone Lalit Rodriguez MD Primary Care Provider Ameya Tucker MD Unavailable [phone] Mercy Montoya APRN Unavailable Encounter Details Date Type Department Care Team (Late st Contact Info) Description 04/04/2021 Scanned Document [facility] Neuroscience [facility] 85 [facility] [address] [place] [phone] Joshua Miller MD Needs Valid Address Social [...] or suspected to have Coronavirus / COVID-19? Unable to assess 03/21/2021 9:48 AM EDT documented as of this encounter Plan of Treatment Upcoming Encounters Date Type Department Care Team (Late st Contact Info) Description 12/22/2024 11:30 AM EST Telemedicine [facility] 5 [facility] 2nd [place] [phone] Cris Barrett PAMikeC [address] [phone] 12/23/2024 2:30 PM EST Office Visit [facility] Department of Pulmonology [place] [address] [facility] 109 [place] [phone] Barbara Hewitt MD 1260 [facility] 105 [place], [place] [phone] 04/04/2025 3:00 PM EDT Office Visit [facility] Department of Cardiology [place] [address] [place] [address] Brennon Galvan PA [address] [place] [phone] 04/07/2025 2:15 PM EDT Office Visit [facility] Department of Internal Medicine & Nephrology [place] [address] [phone] Lalit Rodriguez MD [address] [phone] documented as of this encounter Visit Diagnoses Not on filedocumented in this encounter Care Teams Photograph Mounter Relationship Specialty Start Date End Date Lalit Rodriguez MD [address] [place] [phone] PCP - General Nephrology 08/12/19 Mercy Montoya APRN [address] [place] [phone] PCP - [place] Commercial Attributed 03/20/24 Ameya Tucker MD [address] Ravi [address] [address] Cardiovascular Disease 10/23/21 documented as of this encounter
--- OUTSIDE RECORDS SUMMARY | 2024-12-16 14:22 | XMS_ITS | Encounter Summary ---
Author Organization [facility] Address [address] [place] [address] Care Team Providers Care Insurance Sales Supervisor Name Role Phone Lalit Rodriguez MD Primary Care Provider [phone] Ameya Tucker MD Unavailable [phone] Mercy Montoya APRN Unavailable Encounter Details Date Type Department Care Team (Late st Contact Info) Description 03/23/2024 Scanned Document [facility] Department of Internal Medicine & Nephrology [place] [address] [phone] Lalit Rodriguez MD [address] [facility] 900 [place], [place] [phone] Social History Tobacco Use Types Packs/Day Years [...] Description 12/22/2024 11:30 AM EST Telemedicine [facility] [address] [phone] Cris Barrett PA-C [address] [place] [phone] 12/23/2024 2:30 PM EST Office Visit [facility] Physicians Department of Pulmonology [place] [address] [place] [address] 109 [place] [phone] [place] [address] [place] [address] 105 [place] [address] 04/04/2025 3:00 PM EDT Office Visit [facility] Department of Cardiology [place] [address] [place] [address] Brennon Galvan PA [address] [place] [address] 04/07/2025 2:15 PM EDT Office Visit [facility] Physicians Department of Internal Medicine & Nephrology [address] [phone] Lalit Rodriguez MD [address] [place] [phone] documented as of this encounter Visit Diagnoses Not on filedocumented in this encounter Care Teams Insurance Sales Supervisor Relationship Specialty Start Date End Date Lalit Rodriguez MD [address] [place] [phone] PCP - General Nephrology 08/12/19 Mercy Montoya APRN [address] [place] [address] PCP - [place] Commercial Attributed 03/20/24 Ameya Tucker MD [address] [address] Cardiovascular Disease 10/23/21 documented as of this encounter
--- OUTSIDE RECORDS SUMMARY | 2024-12-16 14:22 | XMS_ITS | Encounter Summary ---
Author Organization [employer] Address 75 [facility] 7t [place] [address] Care Team Providers Care Plant Floor Automation Manager Name Role Phone Tl Clark MD Primary Care Prov ider Encounter Details Date Type Department Care Team ([facility] st Contact Info) Description 12/07/2024 11:[address] [facility] MED & PEDS [address] [place], [place] [phone] Tl Clark MD 505 [place] [address] Overweight with body mass index (BMI) of 29 to 29.9 in adult (Primary Dx) Social History Tobacco Use Types Packs/Day Years Used Date Smoking Tobacco: Never Smokeless Tobacco: Never Alcohol Use Standard Drinks/Week Comments Never 0 (1 standard drink = 0.6 oz pur e alcohol) Depression Answer Date Recorded Patient Health Questionnaire-9 Score 0 12/07/2024 Patient Health Questionnaire-9 Score 0 12/07/2024 Last PHQ-9: Questionnaire Data Not on file 0 12/07/2024 Housing Stability Answer Date Recorded What is your housing situation today? I have rosalba sandoval 12/07/[address] you li ve. Do you have problems with any of the following? None of the above 12/07/2024 Food Insecurity Answer Date Recorded Within the past 12 months, y ou worried that your food would run out before you got money to buy more: Never True 12/07/2024 Within the past 12 months,th e food you bought just didn't last and you didn't have enough money to get more: Never True Transportation Answer Date Recorded In the past 12 months, has l ack of transportation kept you from medical appts, meetings, work or from getting things needed for daily living? No 12/07/2024 Utilities Answer Date Recorded In the past 12 months, has t he electric, gas, oil or water company threatened to shut off services in your home? No 12/07/2024 Depression Answer Date Recorded Patient Health Questionnaire-2 Score 0 12/07/2024 Internet Access Answer Date Recorded Internet Access Q1 Yes 12/07/2024 Internet Access Q2 Not on file 12/07/2024 Comments Unknown Sex and Gender Information Value Date Recorded Sex Assigned at Female 06/25/2024 8:19 AM EDT Legal Sex Female 11:04 AM EDT Gender Identity Female 06/25/2024 8:19 AM EDT Sexual Orientation Straight 06/25/2024 8: 19 AM EDT documented as of this encounter Progress Notes * Tl Perry MD - 12/07/2024 11:30 AM EST Subjective Patient ID: Roxanne Beal is a 63 y.o. female who presents for No chief complaint on file.. HPI Patient was scheduled for a televisit to discuss weight loss options Review of Systems Constitutional: Negative for chills, fatigue and fever. Respiratory: Negative for cough and shortness of breath. Cardiovascular: Negative for chest pain and palpitations. Gastrointestinal: Negative for abdominal distention, anal bleeding and blood in stool. Objective Physical Exam Neurological: General: No focal deficit present. Mental Status: She is oriented to person, place, and time. Psychiatric: Mood and Affect: Mood normal. Behavior: Behavior normal. Assessment/Plan Problem List Items Addressed This Visit Overweight with body mass index (BMI) of 29 to 29.9 in adult - Primary Patient has blue cross/blue shield insurance as primary and [employer]ki as secondary insurance, wemark was previously denied, phentermine is not a option because she has hx of anxiety on benzodiazepine, and this treatment could worsen her condition. Will order zepbound pending mon.ki approval Reviewed indications for pharmacotherapy with patient, which is treatment for patient w/ obesity ora patient with a BMI > 27 w/ CV risk factors who have failed lifestyle modifications alone. These are always prescribed in combination with ongoing lifestyle modification; and will be titrated up from the lowest dose. Will start patient on zepbound, given know efficacy and proven benefits to reduce the risk of cardiovascular events in patients who are overweight or obese and have cardiovascular disease, following of the SELECT trial results. Reviewed mechanism of action with patient. Discussed side effects with patient: nausea, vomiting, diarrhea & risk of pancreatitis. No contraindications identified: , hx of pancreatitis, hx of medullary thyroid cancer or MEN 2. Discussed calorie deficit, recommended reduction of 20-30% of maintenance calories; field machinist referral offered. Recommended to decrease soda and sugary beverage consumption. Recommended at least 20 g per meal of protein to assist with satiety. Recommended at least 150 min/week of moderate intensity exercise. documented in this encounter Miscellaneous Notes * Assessment & Plan Note - Tl Perry MD - 12/07/2024 12:02 PM ESTAssociated Problem(s): Overweight with body mass index (BMI) of 29 to 29.9 in adult Patient has [employer] insurance as primary and [employer] as secondary insurance, wegovy was previously denied, phentermine is not a option because she has hx of anxiety on benzodiazepine, and this treatment could worsen her condition. Will order zepbound pending mon.ki approval Reviewed indications for pharmacotherapy with patient, which is treatment for patient w/ obesity ora patient with a BMI > 27 w/ CV risk factors who have failed lifestyle modifications alone. These are always prescribed in combination with ongoing lifestyle modification; and will be titrated up from the lowest dose. Will start patient on zepbound, given know efficacy and proven benefits to reduce the risk of cardiovascular events in patients who are overweight or obese and have cardiovascular disease, following of the SELECT trial results. Reviewed mechanism of action with patient. Discussed side effects with patient: nausea, vomiting, diarrhea & risk of pancreatitis. No contraindications identified: , hx of pancreatitis, hx of medullary thyroid cancer or MEN 2. Discussed calorie deficit, recommended reduction of 20-30% of maintenance calories; field machinist referral offered. Recommended to decrease soda and sugary beverage consumption. Recommended at least 20 g per meal of protein to assist with satiety. Recommended at least 150 min/week of moderate intensity exercise. documented in this encounter Plan of Treatment Upcoming Encounters Date Type Department Care Team (Late st Contact Info) Description 01/05/2025 3:15 PM EDT Office Visit [facility]ED[facility] [address] [place] [address] Tl Clark MD 505 [place] [address] documented as of this encounter Visit Diagnoses Diagnosis Overweight with body mass index (BMI) of 29 to 29.9 in adult- Primary documented in this encounter Additional Health Concerns Assessment Noted Time PHQ-9 Depression Total Score: 0 12/07/19 25 11:10 AM EST documented as of this encounter Care Teams Plant Floor Automation Manager Relationship Specialty Start Date End Date Tl Clark MD 505 [place] [address] PCP - General Internal Medicine 06/25/24 documented as of this encounter
--- OUTSIDE RECORDS SUMMARY | 2024-12-16 14:22 | XMS_ITS | Encounter Summary ---
Author Organization [employer] Address [address] [place] [address] Care Team Providers Care Hand Tire Trimmer Name Role Phone Tl Clark MD Primary Care Prov ider Reason for Referral * Consultation (Routine) - Closed Specialty Diagnoses / Procedures Referred By Contrenetta t Referred To Contact Bariatrics Diagnoses Overweight with body mass index (BMI) of 29 to 29.9 in adult Tl Clark MD [address] [place] [address] Phone: tel: fax: [facility] [place], [place] Phone: tel: Referral ID Status Reason Start Date Expiration Date V isits Requested Visits Authorized [id number] Closed Specialty Services Required 12/03/2024 12/03/2025 1 1 Encounter Details Date Type Department Care Team (Late st Contact Info) Description 12/03/2024 Orders Only [facility] MED & PEDS [address] [place] [address] Tl Clark MD [address] [place] [address] Overweight with body mass index (BMI) of [...] Description 01/05/2025 3:15 PM EDT Office Visit [facility] [address] [place] [address] Tl Clark MD [address] [place] [address] Scheduled Referrals Name Type Priority Associated Diagnoses Orde r Schedule Referral to Bariatric Surgery Outpatient Referral Routine Overweight with body mass index (BMI) of 29 to 29.9 in adult Expected: 12/03/2024 (Approximate), Expires: 12/03/2025 documented as of this encounter Visit Diagnoses Diagnosis Overweight with body mass index (BMI) of 29 to 29.9 in adult- Primary documented in this encounter Care Teams Hand Tire Trimmer Relationship Specialty Start Date End Date Tl Clark MD [address] [place] [address] PCP - General Internal Medicine 06/25/24 documented as of this encounter
--- OUTSIDE RECORDS SUMMARY | 2024-12-16 14:22 | XMS_ITS | Encounter Summary ---
Author Organization [facility] Address [address] [place] [address] Care Team Providers Care Ems Manager Name Role Phone Lalit Rodriguez MD Primary Care Provider Ameya Tucker MD Unavailable [phone] Mercy Montoya APRN Unavailable Encounter Details Date Type Department Care Team (Late st Contact Info) Description 08/09/2019 Scanned Document [facility] Neuroscience [place] [facility] [address] [place] [address] 8[address] [place] [phone] Joshua Miller MD Needs Valid Address Social [...] Info) Description 12/22/2024 11:30 AM EST Telemedicine [facility] [address] [phone] Cris Barrett PA-C [address] [phone] 12/23/2024 2:30 PM EST Office Visit [facility] Department of Pulmonology [place] 1260 [facility] 109 [place] [phone] Barbara Hewitt MD 1260 [facility] 105 [place] [address] 04/04/2025 3:00 PM EDT Office Visit [facility] Department of Cardiology [place] [address] [facility] [address] [place] [address] Brennon Galvan PA [address] [place] [address] 04/07/2025 2:15 PM EDT Office Visit [facility] Department of Internal Medicine & Nephrology [place] [address] [address] Lalit Rodriguez MD [address] [phone] documented as of this encounter Visit Diagnoses Not on filedocumented in this encounter Care Teams Ems Manager Relationship Specialty Start Date End Date Lalit Rodriguez MD [address] [place] [phone] PCP - General Nephrology 08/12/19 Meryc Montoya APRN [address] [place] [address] PCP - [place] Commercial Attributed 03/20/24 Ameya Tucker MD [address] [address] Cardiovascular Disease 10/23/21 documented as of this encounter
--- OUTSIDE RECORDS SUMMARY | 2024-12-16 14:22 | XMS_ITS | Encounter Summary ---
Author Organization [employer] [facility] Address [address] [place] [address] [place] [address] Care Team Providers Care Wet Silk Hanger Name Role Phone Tl Clark MD Primary Care Prov ider Encounter Details Date Type Department Care Team (Late Contact Info) Description 11/24/2024 Orders Only [facility] MEDICINE [address] [place] [address] Provider, MD Mary Social History Tobacco Use Types Packs/Day Years [...] Encounters Date Type Department Care Team (Late Contact Info) Description 01/05/2025 3:15 PM EDT Office Visit [facility] CHC MED & PEDS 505 [place] [address] Tl Clark MD 505 [place] [address] documented as of this encounter Procedures Procedure Name Priority Date/Time Associated Diagnosis Comments HM COLONOSCOPY Routine 12/18/2021 8:50 AM EST documented in this encounter Results * Hm Colonoscopy (12/18/2021 8:50 AM EST) Historical Provider HEALTH MAINTENANCE Final Result documented in this encounter Visit Diagnoses Not on filedocumented in this encounter Care Teams Wet Silk Hanger Relationship Specialty Start Date End Date SchusterTl Alberto MD [address] [place] [phone] PCP - General Internal Medicine 06/25/24 documented as of this encounter
--- OUTSIDE RECORDS SUMMARY | 2024-12-16 14:22 | XMS_ITS | Encounter Summary ---
Author Organization [facility] Address [address] [place] [address] Care Team Providers Care Floriculture Professor Name Role Phone Lalit Rodriguez MD Primary Care Provider [phone] Ameya Tucker MD Unavailable [phone] Mercy Montoya APRN Unavailable [phone] Encounter Details Date Type Department Care Team (Late st Contact Info) Description 08/09/2019 Scanned Document [facility] Neuro[facility] [address] [place] [address] 815 [place] [phone] Joshua Miller MD Needs Valid Address Social [...] Info) Description 12/22/2024 11:30 AM EST Telemedicine [facility] [address] [phone] Cris Barrett PA-C [address] [phone] 12/23/2024 2:30 PM EST Office Visit [facility] Department of Pulmonology [place] 1260 [facility] 109 [place] [phone] Barbara Hewitt MD 1260 [facility] 105 [place] [address] 04/04/2025 3:00 PM EDT Office Visit [facility] Department of Cardiology [place] [address] [facility] [address] [place] [address] Brennon Galvan PA [address] [place] [address] 04/07/2025 2:15 PM EDT Office Visit [facility] Department of Internal Medicine & Nephrology [place] [address] [phone] Lalit Rodriguez MD [address] [phone] documented as of this encounter Visit Diagnoses Not on filedocumented in this encounter Care Teams Floriculture Professor Relationship Specialty Start Date End Date Lalit Rodriguez MD [address] [place] [phone] PCP - General Nephrology 08/12/19 Mercy Montoya APRN [address] [place] [address] PCP - [place] Commercial Attributed 03/20/24 Ameya Tucker MD [address] [address] Cardiovascular Disease 10/23/21 documented as of this encounter
--- OUTSIDE RECORDS SUMMARY | 2024-12-16 14:22 | XMS_ITS | Encounter Summary ---
Author Organization [facility] Address [address] [place] [address] Care Team Providers Care Senior Systems Engineer Name Role Phone Lalit Rodriguez MD Primary Care Provider [phone] Ameya Tucker MD Unavailable [phone] Mercy Montoya APRN Unavailable Encounter Details Date Type Department Care Team (Late st Contact Info) Description 03/18/2024 Scanned Document [facility] Department of Internal Medicine & Nephrology [place] [address] [phone] Lalit Rodriguez MD 85 [facility] 900 [place] [address] Social History Tobacco Use Types [...] Description 12/22/2024 11:30 AM EST Telemedicine [facility] [address] [phone] Cris Barrett PA-C [address] [place] [phone] 12/23/2024 2:30 PM EST Office Visit [facility] Physicians Department of Pulmonology [place] [address] [place] [address] [address] [place] [phone] [place] [address] [place] [address] 105 [place] [address] 04/04/2025 3:00 PM EDT Office Visit [facility] Department of Cardiology [place] [address] [place] [address] Brennon Galvan PA [address] [place] [address] 04/07/2025 2:15 PM EDT Office Visit [facility] Department of Internal Medicine & Nephrology [address] [phone] Lalit Rodriguez MD [address] [place] [phone] documented as of this encounter Visit Diagnoses Not on filedocumented in this encounter Care Teams Senior Systems Engineer Relationship Specialty Start Date End Date Lalit Rodriguez MD [address] [place] [phone] PCP - General Nephrology 08/12/19 Mercy Montoya APRN [address] [place] [address] PCP - [place] Commercial Attributed 03/20/24 Ameya Tucker MD [address] [address] Cardiovascular Disease 10/23/21 documented as of this encounter
--- OUTSIDE RECORDS SUMMARY | 2024-12-16 14:22 | XMS_ITS | Encounter Summary ---
Author Organization [facility] Address [address] [place] [address] Care Team Providers Care Field Nurse Case Manager Name Role Phone Lalit Rodriguez MD Primary Care Provider Ameya Tucker MD Unavailable [phone] Mercy Montoya APRN Unavailable [phone] Encounter Details Date Type Department Care Team (Late st Contact Info) Description 02/04/2024 Scanned Document [facility] Department of Pulmonology [place] [address] [place] [address] [address] [place] [address] Barbara Hewitt MD 1260 [facility] [place] [address] [place] [phone] Social History Tobacco Use Types Packs/Day Years [...] Description 12/22/2024 11:30 AM EST Telemedicine [facility] [address] [address] Cris Barrett PA-C [address] [place] [phone] 12/23/2024 2:30 PM EST Office Visit [facility] Department of Pulmonology [place] [address] [place] [address] 109 [place] [address] Barbara Hewitt MD 1260 [facility] [place] 105 [place] [address] 04/04/2025 3:00 PM EDT Office Visit [facility] Department of Cardiology [place] [address] [place] [address] Brennon Galvan PA [address] [place] [phone] 04/07/2025 2:15 PM EDT Office Visit [facility] Department of Internal Medicine & Nephrology [address] [phone] Lalit Rodriguez MD [address] [place] [phone] documented as of this encounter Visit Diagnoses Not on filedocumented in this encounter Care Teams Field Nurse Case Manager Relationship Specialty Start Date End Date Llait Rodriguez MD [address] [place] [phone] PCP - General Nephrology 08/12/19 Mercy Montoya APRN [address] [place] [address] PCP - [place] Commercial Attributed 03/20/24 Ameya Tucker MD 1260 [facility] [address] [address] Cardiovascular Disease 10/23/21 documented as of this encounter
--- OUTSIDE RECORDS SUMMARY | 2024-12-16 14:22 | XMS_ITS | Encounter Summary ---
Author Organization [facility] Address [address] [place] [address] Care Team Providers Care Direct Care Worker Name Role Phone Lalit Rodriguez MD Primary Care Provider Ameya Tucker MD Unavailable [phone] Mercy Montoya APRN Unavailable Encounter Details Date Type Department Care Team (Late st Contact Info) Description 04/08/2024 Scanned Document [facility] of Internal Medicine & Nephrology [place] [address] [phone] Lalit Rodriguez MD 85 [facility] 900 [place], [place] [phone] Social History Tobacco Use Types Packs/Day Years [...] Description 12/22/2024 11:30 AM EST Telemedicine [facility] [address] [address] Cris Barrett PA-C [address] [place] [phone] 12/23/2024 2:30 PM EST Office [facility] Physicians Department of Pulmonology [place] [address] [place] [address] 109 [place] [phone] [place] [address] [place] [address] 105 [place] [address] 04/04/2025 3:00 PM EDT Office Visit [facility] Department of Cardiology [place] [address] [place] [address] Brennon Galvan PA [address] [place] [address] 04/07/2025 2:15 PM EDT Office Visit [facility]icians Department of Internal Medicine & Nephrology [address] [phone] Lalit Rodriguez MD [address] [place] [phone] documented as of this encounter Visit Diagnoses Not on filedocumented in this encounter Care Teams Direct Care Worker Relationship Specialty Start Date End Date Lalit Rodriguez MD [address] [place] [phone] PCP - General Nephrology 08/12/19 Mercy Montoya APRN [address] [place] [phone] PCP - [place] Commercial Attributed 03/20/24 Ameya Tucker MD [address] [address] Cardiovascular Disease 10/23/21 documented as of this encounter
--- OUTSIDE RECORDS SUMMARY | 2024-12-16 14:22 | XMS_ITS | Encounter Summary ---
Author Organization [employer] Address 75 [facility] 7t [place] [address] Care Team Providers Care Billing Specialist Name Role Phone Tl Clark MD Primary Care Prov ider Reason for Visit * Reason Onset Date Comments Medication Question 12/14/2024 Encounter Details Date Type Department Care Team ([facility] st Contact Info) Description 12/14/2024 Telephone [facility] MEDICINE 230 [place] [address] Tl Clark MD 505 [place], [place] [phone] Medication Question Social History Tobacco Use Types [...] encounter Miscellaneous Notes * Telephone Encounter - Yonysurjit Vizcaino - 12/14/2024 2:17 PM EST Tc from pt informing [employer] insurance stated they wont cover for ZEPBOUND as the only medicationthat insurance will cover is ISABELLE ROLDAN MOUNJARO as script has to have detail information. Pt also stated she prefers OZEMPIC. documented in this encounter Plan of Treatment Upcoming Encounters Date Type Department Care Team (Late st Contact Info) Description 01/05/2025 3:15 PM EDT Office Visit [facility] MED & PEDS 505 [place] [address] Tl Clark MD 505 [place] [address] documented as of this encounter Visit Diagnoses Not on filedocumented in this encounter Additional Health Concerns Assessment Noted Time PHQ-9 Depression Total Score: 0 12/07/19 11:10 AM EST documented as of this encounter Care Teams Billing Specialist Relationship Specialty Start Date End Date Tl Clark MD 505 [place] [address] PCP - General Internal Medicine 06/25/24 documented as of this encounter
--- OUTSIDE RECORDS SUMMARY | 2024-12-16 14:22 | XMS_ITS | Clinical Summary ---
Author Organization [employer] Address [address] [facility] 7t [place] [address] Care Team Providers Care Plant Facilities Technician Name Role Phone Tl Clark MD Primary Care Prov ider Allergies Active Allergy Reactions Criticality Noted Date Comments Ciprofloxacin Rash Low 06/25/2024 Oxycodone 08/24/2023 Oxycodone-Acetaminophen Rash,Unknown High 06/26/2016 Pneumococcal Polysaccharide Vaccine Rash Low 06/25/2024 Povidone-Iodine Rash Low 06/25/2024 Shellfish-Derived Products Rash,Unknown Medium 016 Tyloxapol Rash Low 11/26/2016 Medications clonazePAM (KlonoPIN) 1 MG tablet Take 1 mg by mouth 3 times daily. Active gabapentin (Neurontin) 600 MG tabletIndication s:Neuropathic Pain Take 600 mg by mouth 3 times daily. Active clopidogrel (Plavix) 75 MG tablet Take 75 mg by mouth Once per day. Active aspirin 81 MG EC tablet Take 81 mg by mouth Once per day. Active amitriptyline (Elavil) 25 MG tablet Take 25 mg by mouth at bedtime. Active Omeprazole 20 MG tablet delayed-release Take 20 mg by mouth Once per day. 90 tablet 07/22/2024 Active amLODIPine (Norvasc) 5 MG tablet Take 5 mg by mouth Once per day. Active metoprolol succinate XL (Toprol-XL) 25 MG 24 hr tablet Take 25 mg by mouth Once per day. Do not crush or chew. Active Semaglutide-Weig ht Management (Wegovy) 0.25 MG/0.5ML solution auto-injector Inject 0.5 mL (0.25 mg) under the skin 1 (one) time per week. 2 mL 10/06/2024 Active Tirzepatide-Weig ht Management (Zepbound) 2.5 MG/0.5ML solution auto-injector Inject 0.5 mL (2.5 mg) under the skin 1 (one) time per week. 3 mL 12/07/2024 Active Active Problems Problem Noted Date Diagnosed Date Overweight with body mass in dex (BMI) of 29 to 29.9 in adult 10/06/2024 Assessment & Plan (12/07/2024 12:05 PM EST): Patient has [employer] insurance as primary and [employer] as secondary insurance, wegovy was previously denied, phentermine is not a option because she has hx of anxiety on benzodiazepine, and this treatment could worsen her condition. Will order zepbound pending [employer] approval Reviewed indications for pharmacotherapy with patient, which is treatment for patient w/ obesity or a patient with a BMI > 27 w/ [...] recommended reduction of 20-30% of maintenance calories; esol instructor referral offered. Recommended to decrease soda and sugary beverage consumption. Recommended at least 20 g per meal of protein to assist with satiety. Recommended at least 150 min/week of moderate intensity exercise. Assessment & Plan (10/06/2024 8:59 AM EST): Reviewed indications for pharmacotherapy with patient, which is treatment for patient w/ obesity or a patient with a BMI > 27 w/ CV risk factors who have failed lifestyle modifications alone. These are always prescribed in combination with ongoing lifestyle modification; and will be titrated up from the lowest dose. Will start patient on Wegovy, given know efficacy and proven benefits to [...] recommended reduction of 20-30% of maintenance calories; esol instructor referral offered. Recommended to decrease soda and sugary beverage consumption. Recommended at least 20 g per meal of protein to assist with satiety. Recommended at least 150 min/week of moderate intensity exercise. Gastroesophageal reflux disease without esophagi tis 07/22/2024 Assessment & Plan (07/22/2024 2:46 PM EDT): Will order omeprazole, lifestyle modifications discussed Traumatic brain injury 07/22/2024 Assessment & Plan (07/22/2024 2:51 PM EDT): Hx of aneurism, s/p endovascular procedure, will refer to speech therapy, she has been having speech dificulty Encounter for medical examination to establish c are 07/02/2024 Assessment & Plan (07/02/2024 1:08 PM EDT): Last pcp visit on March 2024 Pmhx: HTN, Migraine, neuropathy, fibromyalgia, anxiety/depression, brain aneurism PSH: csec x2 1985/1988, diogo/bso 1992/cholecystectomy 1993 Patient followed by neurosurgery/neurology/psychiatry/cardiology Patient is A1 Insomnia 07/02/2024 Assessment & Plan (07/02/2024 1:03 PM EDT): Followed by psych on amitriptyline, will follow up reccomendations Mixed hyperlipidemia 08/24/2023 Benign essential hypertension 04/18/2023 Assessment & Plan (10/06/2024 8:55 AM EST): Controlled, was started on amlodipine 5mg, and metoprolol, keep low sodium diet and exercise as tolerated, keep bp log Assessment & Plan (07/22/2024 2:45 PM EDT): Patient has WCS, told to keep bp log and bring it for next appointment Assessment & Plan (07/02/2024 1:04 PM EDT): Has remained stable, she takes hydralazine as needed, told to keep a bp log, bp target <130/80 Cerebral aneurysm 02/20/2011 Overview (07/02/2024): Last Assessment & Plan: 56-year-old right-handed female with a history of incidental cerebral aneurysm is found on headache workup in 2008. She was followed in [facility] by a neurosurgeon and has since relocated to [place]. She is here to discuss treatment options. She has a history of migraines, trigeminal neuralgia on the left, fibromyalgia, asthma and multiple allergies to medication. Of note patient reports that she had a TIA lasted 3 days approximately 3 years ago. Imaging presented last year reviewed by Dr. Harris and revealed a 3 mm left ICA wide neck bifurcation aneurysm. Imaging was reviewed back to 2007 change in size or configuration was noted.. Repeat MRA performed in [place] was read as no aneurysm. Continues to have headaches and symptoms referable to left trigeminal neuralgia. - F/U MRA in 5 years Assessment & Plan (07/22/2024 2:47 PM EDT): Will refer to speech therapy in [place] as per patient request Assessment & Plan (07/02/2024 1:05 PM EDT): Followed by neurosurgery, had endovascular sx on february and March, will follow up reccomendations Fibromyositis 11/09/2009 Mixed anxiety depressive disorder 11/09/2009 Assessment & Plan (07/02/2024 1:05 PM EDT): Followed by psych, no suicidal/homicidal ideas, will follow up reccomendations Encounters Date Type Department Care Team Description 12/15/2024 Telephone [facility] CHC MED & PEDS [address] [place] [address] Tl Clark MD Prior Authorization 12/14/2024 Telephone [facility] MEDICINE [address] [place], [place] [phone] Tl Clark MD Medication Question 12/07/2024 11:30 AM EST Telemedicine [facility] MED & PEDS [address] [place] [address] Tl Clark MD Overweight with body mass index (BMI) of 29 to 29.9 in adult (Primary Dx) 12/07/2024 Travel 12/03/2024 Orders Only [facility] MED & PEDS [address] [place] [address] Tl Clark MD Overweight with body mass index (BMI) of 29 to 29.9 in adult (Primary Dx) 11/24/2024 Telephone [facility] MEDICINE [address] [place] [address] Tl Clark MD Call Back Request 11/24/2024 Orders Only [facility] MEDICINE [address] [place] [phone] Mary Arzola MD 11/22/[address] [address] Tl Clark MD Nurse Triage 11/19/2024 Telephone [facility] [address] [place] [address] Tl Clark MD 11/03/2024 Telephone [facility] PEDS [address] [place] [address] Tl Clark MD 11/03/2024 Orders Only [facility] MED & PEDS [address] [place] [address] Tl Clark MD 11/01/2024 Telephone [facility] MEDICINE [address] [place] [address] Tl Clark MD Referral 10/11/2024 Telephone [facility] MEDICINE [address] [place] [address] Tl Clark MD Medication Question 10/09/2024 Orders Only [facility] MED & PEDS [address] [place] [address] Tl Clark MD 10/08/2024 Telephone [facility] MED & PEDS [address] [place] [address] Tl Clark MD Prior Authorization 10/05/2024 8:45 AM EST Telemedicine [facility] MED & PEDS [address] [place] [address] Tl Clark MD Benign essential hypertension (Primary Dx); Overweight with body mass index (BMI) of 29 to 29.9 in adult 10/05/2024 Telephone [facility] MEDICINE [address] [place] [address] Tl Clark MD Referral 10/05/2024 Travel 10/04/2024 Telephone [facility] CH[facility] MED & PEDS [address] [place] [address] Tl Clark MD chart prep from Last 3 Months Family History Medical History Relation Name Comments Alzheimer's disease Father Diabetes Father Hypertension Father Diabetes Mother Hypertension Mother Breast cancer Sister Relation Name Status Comments Father Mother Sister Social History Tobacco Use Types Packs/Day Years Used Date Smoking Tobacco: Never Smokeless Tobacco: Never Tobacco Cessation:Counseling Given: Not Answered Alcohol Use Standard Drinks/Week Comments Never 0 [...] t he electric, gas, oil or water [employer] threatened to shut off services in your [...] Orientation Straight 06/25/2024 8: 19 AM EDT Last Filed Vital Signs Vital Sign Reading Time Taken Comments Blood Pressure 121/60 10/05/2024 9:35 AM EST Pulse 86 10/05/2024 9:35 AM EST Temperature 36.3 ??C (97.4 ??F) 07/01/2024 3:42 PM ED T Respiratory Rate 20 07/01/2024 3:42 PM EDT Oxygen Saturation - - Inhaled Oxygen Concentration - - Weight 74.8 kg (165 lb) 07/01/2024 3:42 PM EDT Height 160 cm (5' 3 ) 10/05/2024 9:35 AM EST Body Mass Index - - Plan of Treatment Upcoming Encounters Date Type Department Care Team (Late st Contact Info) Description 01/05/2025 3:15 PM EDT Office Visit [facility] CH[facility] MED & PEDS [address] [place] [address] Tl Clark MD [address] [place] [address] Health Maintenance Due Date Last Done Comments CT Colonography 1960 FIT DNA/Cologuard 1960 FIT 1960 FOBT 1960 HIV Screening 1960 Lipid Panel 1960 Sigmoidoscopy 1960 Hepatitis C Screening 1978 Pap Smear 1981 Cervical Cancer Screening 1990 HPV/Cotest 1990 Pneumococcal Vaccine: 50+ Years (2 of 2 - PCV) 12/15/2020 12/15/2019 RSV Patients and Patients Aged 60 years or older (1 - Risk 60-74 years 1-dose series) 2020 Tobacco Screening 07/02/2025 07/02/2024 Alcohol/Substance Use Screening 12/07/2025 12/07/2024 Depression Screening 12/07/2025 12/07/2024, 12/07/19 25 SDOH Screening 12/07/2025 12/07/2024 Mammogram 07/20/2026 07/20/2024, 03/21, 07/25/2022, Additional history exists Colonoscopy 12/18/2026 12/18/2021 Colorectal Cancer Screening 12/18/2026 DTaP/Tdap/Td Vaccines (3 - Td or Tdap) 12/28/2031 12/27/2021, 02/20/2011 Zoster Vaccines Completed 03/05/2022, 12/27/2021 COVID-19 Vaccine Completed 07/26/2024 Influenza Vaccine Completed 07/26/2024, , 07/05/2021 HIB Vaccines Aged Out No longer eligi ble based on patient's age to complete this topic HPV Vaccines Aged Out No longer eligi ble based on patient's age to complete this topic Hepatitis A Vaccines Aged Out No long er eligible based on patient's age to complete this topic Hepatitis B Vaccines Aged Out No long er eligible based on patient's age to complete this topic IPV Vaccines Aged Out No longer eligi ble based on patient's age to complete this topic Meningococcal Vaccine Aged Out No ana katlyn eligible based on patient's age to complete this topic RSV under 20 months Aged Out No longe r eligible based on patient's age to complete this topic Rotavirus Vaccines Aged Out No longer eligible based on patient's age to complete this topic Procedures Procedure Name Priority Date/Time Associated Diagnosis Comments COLONOSCOPY Routine 12/18/2021 8:50 AM EST from Last 3 Months or Most Recently Relevant to Health Maintenance Results * Hm Colonoscopy (12/18/2021 8:50 AM EST) us Historical Provider HEALTH MAINTENANCE Final Result from Last 3 Months or Most Recently Relevant to Health Maintenance Insurance [place] [address] [id number] [facility] Care Teams Plant Facilities Technician Relationship Specialty Start Date End Date Tl Clark MD [address] [place] [id number] PCP - General Internal Medicine 06/25/24
--- OUTSIDE RECORDS SUMMARY | 2024-12-16 14:22 | XMS_ITS | Encounter Summary ---
Author Organization [facility] Address [address] [place] [address] Care Team Providers Care Audio Visual Secretary Name Role Phone Lalit Rodriguez MD Primary Care Provider Ameya Tucker MD Unavailable [phone] Mercy Montoya APRN Unavailable [phone] Encounter Details Date Type Department Care Team (Late st Contact Info) Description 09/03/2023 Scanned Document [facility] Department of Cardiology [address] [place] [address] Ameya Tucker MD [address] [place] [address] Social History Tobacco Use Types [...] EST Telemedicine [facility] [address] [facility] 2nd [place] [phone] Cris Barrett PA-C [address] [place] [phone] 12/23/2024 2:30 PM EST Office Visit [facility] Department of Pulmonology [place] [address] [facility] [address] [place] [phone] Barbara Hewitt MD [address] [facility] [address] [place], [place] [phone] 04/04/2025 3:00 PM EDT Office Visit [facility] Department of Cardiology [place] [address] [place] [address] Brennon Galvan PA [address] [place] [address] 04/07/2025 2:15 PM EDT Office Visit [facility] Department of Internal Medicine & Nephrology [place] [address] [phone] Lalit Rodriguez MD [address] [phone] documented as of this encounter Visit Diagnoses Not on filedocumented in this encounter Care Teams Audio Visual Secretary Relationship Specialty Start Date End Date Lalit Rodriguez MD [address] [id number] PCP - General Nephrology 08/12/19 Mercy Montoya APRN [address] [place] [address] PCP - [place] [facility] Attributed 03/20/24 Ameya Tucker MD [address] Ravi [address] [address] Cardiovascular Disease 10/23/21 documented as of this encounter
--- OUTSIDE RECORDS SUMMARY | 2024-12-16 14:22 | XMS_ITS | Encounter Summary ---
Author Organization [employer] Address [address] [facility] 7 [place] [address] Care Team Providers Care Tong Hooker Name Role Phone Tl Clark MD Primary Care Prov ider Reason for Visit * Reason Onset Date Comments Referral 10/05/2024 Encounter Details Date Type Department Care Team ([facility] st Contact Info) Description 10/05/2024 Telephone [facility] MEDICINE [address] [place] [address] Tl Clark MD [address] [place] [address] Referral Social History Tobacco Use Types Packs/Day Years [...] encounter Miscellaneous Notes * Telephone Encounter - Fani Sahu RN - 11/16/2024 2:40 PM EST Message was sent to PCP from referrals department requesting notes. * Telephone Encounter - Lina Nayeli Hernandez - 11/15/2024 2:43 PM EST Tc from pt stating PCP call her to let her know referrals for audiology and endo was ready. Referrals are pending for review and require notes. Pt states wants to be referred near [place], [place]. [phone] ([place]) * Telephone Encounter - Balaji Hale - 10/05/2024 9:42 AM EST Tc from pt requesting a referral for ENT , states forgot to mention to PCP during tele visit today.Pt stated has hearing loss that comes and goes away. Please contact at [phone] [place] documented in this encounter Plan of Treatment Upcoming Encounters Date Type Department Care Team ([facility] st Contact Info) Description 01/05/2025 3:15 PM EDT Office Visit [facility] MED & PEDS [address] [place] [address] Tl Clark MD [address] [place] [address] documented as of this encounter Visit Diagnoses Not on filedocumented in this encounter Care Teams Tong Hooker Relationship Specialty Start Date End Date Tl Clark MD [address] [place] [address] PCP - General Internal Medicine 06/25/24 documented as of this encounter
--- OUTSIDE RECORDS SUMMARY | 2024-12-16 14:22 | XMS_ITS | Encounter Summary ---
Author Organization [employer] Address [address] [facility] 7 [place] [address] Care Team Providers Care Youth Associate Name Role Phone Tl Clark MD Primary Care Prov ider Reason for Visit * Reason Onset Date Comments Call Back Request 11/24/2024 Encounter Details Date Type Department Care Team ([facility] st Contact Info) Description 11/24/2024 Telephone [facility] MEDICINE [address] [place] [address] Tl Clark MD [address] [place], [place] [phone] Call Back Request Social History Tobacco Use Types Packs/Day Years [...] encounter Miscellaneous Notes * Telephone Encounter - Suyapa Klein RN - 11/26/2024 2:45 PM EST TC to patient. No answer. Unable to leave message. * Telephone Encounter - Lina Hernandez - 11/24/2024 11:19 AM EST Tc from pt requesting a call back regarding weight loss medication. [phone] [place] documented in this encounter Plan of Treatment Upcoming Encounters Date Type Department Care Team (Late st Contact Info) Description 01/05/2025 3:15 PM EDT Office Visit [facility] MED & PEDS [address] [place] [address] Tl Clark MD [address] [place] [address] documented as of this encounter Visit Diagnoses Not on filedocumented in this encounter Care Teams Youth Associate Relationship Specialty Start Date End Date Tl Clark MD [address] [place] [address] PCP - General Internal Medicine 06/25/24 documented as of this encounter
--- OUTSIDE RECORDS SUMMARY | 2024-12-16 14:22 | XMS_ITS | Encounter Summary ---
Author Organization [employer] Address [address] [facility] 7 [place] [address] Care Team Providers Care Calender Supervisor Name Role Phone Tl Clark MD Primary Care Prov ider Reason for Visit * Reason Onset Date Comments Referral 11/01/2024 Encounter Details Date Type Department Care Team ([facility] st Contact Info) Description 11/01/[address] [facility] MEDICINE [address] [place] [address] Tl lCark MD [address] [place] [address] Referral Social History Tobacco Use Types Packs/Day [...] 8:19 AM EDT Sexual Orientation Straight 06/25/2024 8 :19 AM EDT documented as of this encounter Miscellaneous Notes * Telephone Encounter - Paola Vizcaino - 11/04/2024 12:53 PM EST Referrals for audiology and endo require notes. An addendum could be added to chart notes from 10/05. Thank you. * Telephone Encounter - Michelle Carrillo - 11/03/2024 9:46 AM EST Tc from pt requesting a call back as she states she needs the referral for pharmacy tech referral/ also for ENT referral Pt states was discussed during last Tele visit 10/05/2025 * Telephone Encounter - Kevon Rory - 11/01/2024 2:47 PM EST Tc from pt requesting pharmacy tech referral/ also for ENT referral Pt states was discussed during last Tele visit 10/05/2025 documented in this encounter Plan of Treatment Upcoming Encounters Date Type Department Care Team (Late st Contact Info) Description 01/05/2025 3:15 PM EDT Office Visit [facility] MED & PEDS [address] [place] [address] Tl Clark MD [address] [place] [address] documented as of this encounter Visit Diagnoses Not on filedocumented in this encounter Care Teams Calender Supervisor Relationship Specialty Start Date End Date Tl Clark MD [address] [place] [address] PCP - General Internal Medicine 06/25/24 documented as of this encounter
--- OUTSIDE RECORDS SUMMARY | 2024-12-16 14:22 | XMS_ITS | Encounter Summary ---
Author Organization [employer] Address [address] [place] [address] [place] [address] Care Team Providers Care Solvent Recoverer Name Role Phone Tl Clark MD Primary Care Prov ider Encounter Details Date Type Department Care Team (Late st Contact Info) Description 11/03/2024 Orders Only [facility] MED & PEDS [address] [place] [address] Tl Clark MD [address] [place] [address] Social History Tobacco Use Types Packs/Day Years [...] Description 01/05/2025 3:15 PM EDT Office Visit [facility] MED & PEDS [address] [place] [address] Tl Clark MD [address] [place] [address] documented as of this encounter Visit Diagnoses Not on filedocumented in this encounter Care Teams Solvent Recoverer Relationship Specialty Start Date End Date Tl Clark MD [address] [place] [address] PCP - General Internal Medicine 06/25/24 documented as of this encounter
--- OUTSIDE RECORDS SUMMARY | 2024-12-16 14:22 | XMS_ITS | Encounter Summary ---
Author Organization [employer] Address [address] [facility] 7[address] [place] [address] Care Team Providers Care Dyeing Machine Feeder Name Role Phone Tl Clark MD Primary Care Prov ider Reason for Visit * Reason Onset Date Comments Nurse Triage 11/22/2024 Encounter Details Date Type Department Care Team (Late st Contact Info) Description 11/22/[address] [facility] MEDICINE [address] [place] [address] Tl Clark MD [address] [place] [address] Nurse Triage Social History Tobacco Use Types Packs/Day Years [...] encounter Miscellaneous Notes * Telephone Encounter - Lyndsay Ferrer RN - 11/22/2024 12:01 PM EST [place] [id number] Ry, Pt reports what started in one eye has now spread to both eyes. Pt reports eye lashes stick together with yellow crusty drainage [place] in the mornings. Both eye lids reddened and itchy. Pt advised no avaiLable appts today in [facility] and offered to come to [facility] today. Pt reports will go to urgent care closer to where Pt lives. Will call back if needed. Home care reviewed. Advised warm compress to eyes in AM Pt agreed. Multiple (2) protocols were used on this call. Disposition for Call: See in Office or Video Visit Today Protocol Used: Chest Pain (Adult) Protocol-Based Disposition: See in Office or Video Visit Today Video visit not offered Positive Triage Questions: * All other patients with chest pain (Exception: Fleeting chest pain lasting a few seconds.) * Patient wants to be seen * All higher-acuity triage questions were negative Protocol Used: Eye - Pus or Discharge (Adult) Protocol-Based Disposition: See in Office or Video Visit Today Video visit not offered Positive Triage Question: * Patient wants to be seen * All higher-acuity triage questions were negative Care Advice Discussed: * Reassurance and Education - Probable Bacterial Conjunctivitis * Keep Your Eyelids Clean * Expected Course * Reasons To Call Back - Pus lasts over 3 days (72 hours) on treatment - Blurred vision occurs - Light bothers your eyes - More than just mild eye discomfort - You become worse * Telephone Encounter - Kevon Valadez - 11/22/2024 11:21 AM EST Symptom: Eye - Pus or Discharge Outcome: Schedule an urgent appointment (within 4 hours) or talk to a nurse or provider soon Reason: Eyelid is red and swollen The caller accepted this outcome. documented in this encounter Plan of Treatment Upcoming Encounters Date Type Department Care Team (Late st Contact Info) Description 01/05/2025 3:15 PM EDT Office Visit [facility] MED & PEDS [address] [place] [address] Tl Clark MD [address] [place] [address] documented as of this encounter Visit Diagnoses Not on filedocumented in this encounter Care Teams Dyeing Machine Feeder Relationship Specialty Start Date End Date Tl Clark MD [address] [place] [address] PCP - General Internal Medicine 06/25/24 documented as of this encounter
--- OUTSIDE RECORDS SUMMARY | 2024-12-16 14:22 | XMS_ITS | Encounter Summary ---
Author Organization [facility] Address [address] [place] [address] Care Team Providers Care Field Sales Representative Name Role Phone Lalit Rodriguez MD Primary Care Provider Ameya Tucker MD Unavailable [phone] Mercy Montoya APRN Unavailable Encounter Details Date Type Department Care Team (Late st Contact Info) Description 03/21/2024 Scanned Document [facility] Department of Internal Medicine & Nephrology [place] [address] [address] Lalit Rodriguez MD 85 [facility] 900 [place], [place] [phone] Social History Tobacco Use Types Packs/Day Years [...] Description 12/22/2024 11:30 AM EST Telemedicine CTGI [address] [address] Cris Barrett PA-C [address] [place] [phone] 12/23/2024 2:30 PM EST Office Visit [facility] Department of Pulmonology [place] [address] [place] [address] 109 [place] [phone] [place] [address] [place] [address] 105 [place] [address] 04/04/2025 3:00 PM EDT Office Visit [facility] Department of Cardiology [place] [address] [place] [address] Brennon Galvan PA [address] [place] [address] 04/07/2025 2:15 PM EDT Office Visit [facility] Department of Internal Medicine & Nephrology [address] [phone] Lalit Rodriguez MD [address] [place] [phone] documented as of this encounter Visit Diagnoses Not on filedocumented in this encounter Care Teams Field Sales Representative Relationship Specialty Start Date End Date Lalit Rodriguez MD [address] [place] [address] [id number] PCP - General Nephrology 08/12/19 Mercy Montoya APRN [address] [place] [address] PCP - [place] Commercial Attributed 03/20/24 Ameya Tucker MD [address] [address] Cardiovascular Disease 10/23/21 documented as of this encounter
--- OUTSIDE RECORDS SUMMARY | 2024-12-16 14:22 | XMS_ITS | Encounter Summary ---
Author Organization [facility] Address [address] [place] [address] Care Team Providers Care Family Service Caseworker Name Role Phone Lalit Rodriguez MD Primary Care Provider [phone] Ameya Tucker MD Unavailable [phone] Mercy Montoya APRN Unavailable Encounter Details Date Type Department Care Team (Late st Contact Info) Description 07/29/2019 Scanned Document [facility] Neuroscience [facility] 85 [facility]. S 5 [place] [address] Padmini Wilcox PA [address] [place] [phone] Social History Tobacco Use Types Packs/Day Years [...] Info) Description 12/22/2024 11:30 AM EST Telemedicine [address] 2nd [place] [address] Cris Barrett PA-C [address] [phone] 12/23/2024 2:30 PM EST Office Visit [facility] Department of Pulmonology [place] 1260 [facility] [address] [place] [phone] Barbara Hewitt MD 1260 [facility] 105 [place], [place] [phone] 04/04/2025 3:00 PM EDT Office Visit [facility] Department of Cardiology [place] [address] [place] [address] Brennon Galvan PA [address] [place] [address] 04/07/2025 2:15 PM EDT Office Visit [facility] Department of Internal Medicine & Nephrology [place] [address] [phone] Lalit Rodriguez MD [address] [phone] documented as of this encounter Visit Diagnoses Not on filedocumented in this encounter Care Teams Family Service Caseworker Relationship Specialty Start Date End Date Lalit Rodriguez MD [address] [phone] PCP - General Nephrology 08/12/19 Mercy Montoya APRN [address] [place] [address] PCP - [place] Commercial Attributed 03/20/24 Ameya Tucker MD 1260 Danielpaola Ravi [address] [address] Cardiovascular Disease 10/23/21 documented as of this encounter
--- OUTSIDE RECORDS SUMMARY | 2024-12-16 14:22 | XMS_ITS | Encounter Summary ---
Author Organization [facility] Address [address] [place] [address] Care Team Providers Care Business English Instructor Name Role Phone Lalit Rodriguez MD Primary Care Provider Ameya Tucker MD Unavailable [phone] Mercy Montoya APRN Unavailable Encounter Details Date Type Department Care Team (Late st Contact Info) Description 07/22/2023 Scanned Document [facility] Department of Internal Medicine & Nephrology [place] [address] [place] [address] [address] [place] [address] Lalit Rodriguez MD 85 [facility] [address] [place], [place] [phone] Social History Tobacco Use Types Packs/Day Years [...] Description 12/22/2024 11:30 AM EST Telemedicine [facility]GI [facility] 5 [facility] 2nd [place] [phone] Cris Barrett PA-C 5 [facility] 2nd [place] [address] 12/23/2024 2:30 PM EST Office Visit [facility] Department of Pulmonology [place] 1260 [facility] [address] [place] [address] Barbara Hewitt MD 1260 [facility] 105 [place], [place] [phone] 04/04/2025 3:00 PM EDT Office Visit [facility] Department of Cardiology [place] [address] [place] [address] Brennon Galvan PA [address] [place] [address] 04/07/2025 2:15 PM EDT Office Visit [facility] Department of Internal Medicine & Nephrology [place] [address] [phone] Lalit Rodriguez MD [address] [phone] documented as of this encounter Visit Diagnoses Not on filedocumented in this encounter Care Teams Business English Instructor Relationship Specialty Start Date End Date Lalit Rodriguez MD [address] [phone] PCP - General Nephrology 08/12/19 Mercy Montoya APRN 65 [place] [address] PCP - [place] Commercial Attributed 03/20/24 Ameya Tucker MD [address] [place] [address] Cardiovascular Disease 10/23/21 documented as of this encounter
--- OUTSIDE RECORDS SUMMARY | 2024-12-16 14:22 | XMS_ITS | Encounter Summary ---
Author Organization [facility] Address [address] [place] [address] Care Team Providers Care Haulpak Driver Name Role Phone Lalit Rodriguez MD Primary Care Provider [phone] Ameya Tucker MD Unavailable [phone] Mercy Montoya APRN Unavailable [phone] Reason for Visit * Reason Comments Appointment Encounter Details Date Type Department Care Team ([facility] st Contact Info) Description 02/03/2024 Telephone [facility] Heart & Vascular [place] - Electrophysiology [address] [place] [address] Oumar Pablo MD [address] [place] [address] [place] [address] [phone] Appointment Social History Tobacco Use Types Packs/Day Years [...] Description 12/22/2024 11:30 AM EST Telemedicine CTGI [address] [address] Cris Barrett PA-C [address] [place] [phone] 12/23/2024 2:30 PM EST Office Visit [facility] Department of Pulmonology [place] [address] [place] [address] 109 [place] [phone] Barbara Hewitt MD 1260 [facility] 105 [place] [address] 04/04/2025 3:00 PM EDT Office Visit [facility] Department of Cardiology [place] [address] [place] [address] Brennon Galvan PA [address] [place] [address] 04/07/2025 2:15 PM EDT Office Visit [facility] Department of Internal Medicine & Nephrology [address] [address] Lalit Rodriguez MD [address] [phone] documented as of this encounter Visit Diagnoses Not on filedocumented in this encounter Care Teams Haulpak Driver Relationship Specialty Start Date End Date Lalit Rodriguez MD [address] [place] [phone] PCP - General Nephrology 08/12/19 Mercy Montoya APRN [address] [place] [address] PCP - [place] Commercial Attributed 03/20/24 Ameya Tucker MD [address] [address] Cardiovascular Disease 10/23/21 documented as of this encounter
--- OUTSIDE RECORDS SUMMARY | 2024-12-16 14:22 | XMS_ITS | Encounter Summary ---
Author Organization [employer] Address 75 [facility] 7t [place] [address] Care Team Providers Care Rail Track Maintainer Name Role Phone Tl Clark MD Primary Care Prov ider Encounter Details Date Type Department Care Team (Latest Contact Info) Description 12/07/2024 Travel Social History Tobacco Use Types Packs/Day Years [...] Description 01/05/2025 3:15 PM EDT Office Visit [facility] CHC MED & PEDS 505 [place] [address] Tl Clark MD 505 [place] [address] documented as of this encounter Visit Diagnoses Not on filedocumented in this encounter Additional Health Concerns Assessment Noted Time PHQ-9 Depression Total Score: 0 12/07/19 25 11:10 AM EST documented as of this encounter Care Teams Rail Track Maintainer Relationship Specialty Start Date End Date Tl Clark MD 505 [place] [address] PCP - General Internal Medicine 06/25/24 documented as of this encounter
--- OUTSIDE RECORDS SUMMARY | 2024-12-16 14:22 | XMS_ITS | Encounter Summary ---
Author Organization [employer] Address [address] [place] [address] 7 [place] [address] Care Team Providers Care Laborer Road Name Role Phone Tl Clark MD Primary Care Prov ider Encounter Details Date Type Department Care Team (Late Contact Info) Description 11/19/2024 [employer] 230 [place], [place] [phone] Tl Clark MD 505 [place], [place] [phone] Social History Tobacco Use Types Packs/Day Years [...] * Telephone Encounter - Paola Vizcaino - 11/19/2024 9:42 AM EST Good morning Dr. Schuster, we received a fax from [facility] endo stating they can't treat patient with provided diagnosis. documented in this encounter Plan of Treatment Upcoming Encounters Date Type Department Care Team (Late Contact Info) Description 01/05/2025 3:15 PM EDT Office Visit [facility] CHC MED & PEDS 505 [place], [place] [phone] Tl Clark MD 505 [place] [address] documented as of this encounter Visit Diagnoses Not on filedocumented in this encounter Care Teams Laborer Road Relationship Specialty Start Date End Date Tl Clark MD 505 [place] [address] PCP - General Internal Medicine 06/25/24 documented as of this encounter
--- OUTSIDE RECORDS SUMMARY | 2024-12-16 14:22 | XMS_ITS | Encounter Summary ---
Author Organization [facility] Address [address] [place] [address] Care Team Providers Care Senior System Operator Name Role Phone Lalit Rodriguez MD Primary Care Provider [phone] Ameya Tucker MD Unavailable [phone] Mercy Montoya APRN Unavailable Encounter Details Date Type Department Care Team (Late st Contact Info) Description 03/05/2024 Scanned Document [facility] Department of Internal Medicine & Nephrology [place] [address] [phone] Lalit Rodriguez MD 85 [facility] 900 [place] [address] Social History Tobacco Use Types [...] Description 12/22/2024 11:30 AM EST Telemedicine [facility]GI [address] [address] Cris Barrett PA-C [address] [place] [phone] 12/23/2024 2:30 PM EST Office Visit [facility] Department of Pulmonology [place] [address] [place] [address] 109 [place] [phone] [place] [address] [place] [address] 105 [place] [address] 04/04/2025 3:00 PM EDT Office Visit [facility] Department of Cardiology [place] [address] [place] [address] Brennon Galvan PA [address] [place] [address] 04/07/2025 2:15 PM EDT Office Visit [facility] Department of Internal Medicine & Nephrology [address] [phone] Lalit Rodriguez MD [address] [place] [phone] documented as of this encounter Visit Diagnoses Not on filedocumented in this encounter Care Teams Senior System Operator Relationship Specialty Start Date End Date Lalit Rodriguez MD [address] [place] [address] [phone] PCP - General Nephrology 08/12/19 Mercy Montoya APRN [address] [place] [address] PCP - [place] Commercial Attributed 03/20/24 Ameya Tucker MD [address] [address] Cardiovascular Disease 10/23/21 documented as of this encounter
--- OUTSIDE RECORDS SUMMARY | 2024-12-16 14:22 | XMS_ITS | Clinical Summary ---
Author Organization [facility] ity Address [address] [place] [address] Care Team Providers Care Tunnel Inspector Name Role Phone Vijaya Love NP Primary Care Provider Medical History Medical History Date Comments Asthma DX:Asthma Hypertension DX:Hypertension Social History Tobacco Use Types Packs/Day Years Used Date Smoking Tobacco: Never Smokeless Tobacco: Never Alcohol Use Standard Drinks/Week Comments No 0 (1 standard drink = 0.6 oz pur e alcohol) Comments Unknown Sex and Gender Information Value Date Recorded Sex Assigned at Not on file Legal Sex Female 5:07 AM EST Gender Identity Not on file Sexual Orientation Not on file Obstetrics History Plan of Treatment Health Maintenance Due Date Last Done Comments Breast Cancer Screening 1960 DTaP,Tdap,and Td Vaccines (1 - Tdap) 12/27/1979 Cervical Cancer Screening: P ap Smear 1981 Pneumococcal Vaccine: 50+ Ye ars (1 of 1 - PCV) 2010 Zoster Vaccines (1 of 2) 2010 COVID-19 Vaccine ( - 2023-2 5 season) 2024 Influenza Vaccine (#1) 2024 RSV Immunization Patients 60 + Years Old (1 - 1-dose 75+ series) 12/27/2035 HIB Vaccines Aged Out No longer eligi [...] on patient's age to complete this topic MMR Vaccines Aged Out No longer eligi ble based on patient's age to complete this topic Meningococcal ACWY Vaccine Aged Out N o longer eligible based on patient's age to complete this topic Meningococcal B Vacine Aged Out No lo nger eligible based on patient's age to complete this topic Pneumococcal Vaccine: Pediat rics (0 to 5 Years) and At-Risk Patients (6 to 64 Years) Aged Out No longer eligible b ased on patient's age to complete this topic RSV Immunization Patients Un vinicio 20 months Aged Out No longer eligible b ased on patient's age to complete this topic Varicella Vaccines Aged Out No longer eligible based on patient's age to complete this topic Care Teams Tunnel Inspector Relationship Specialty Start Date End Date Vijaya Love NP [address] [place] [address] PCP - General Gerontology 11/10/18
[2024-12-16 14:23] LABS: MANUAL DIFF FLAG NO
--- OUTSIDE RECORDS SUMMARY | 2024-12-16 14:23 | XMS_ITS | Encounter Summary ---
Author Organization [facility] Address [address] [place] [address] Care Team Providers Care Advocacy Director Name Role Phone Lalit Rodriguez MD Primary Care Provider [phone] Ameya Tucker MD Unavailable [phone] Mercy Montoya APRN Unavailable [phone] Encounter Details Date Type Department Care Team (Late st Contact Info) Description 05/03/2024 Scanned Document [facility] Department of Internal Medicine & Nephrology [place] [address] [address] Lalit Rodriguez MD 85 [facility] 900 [place], [place] [phone] Social History Tobacco Use Types Packs/Day Years [...] Description 12/22/2024 11:30 AM EST Telemedicine [facility]GI [address] [address] Cris Barrett PA-C [address] [place] [phone] 12/23/2024 2:30 PM EST Office Visit [facility] Department of Pulmonology [place] [address] [place] [address] 109 [place] [phone] [place] [address] [place] [address] 105 [place] [address] 04/04/2025 3:00 PM EDT Office Visit [facility] Department of Cardiology [place] [address] [place] [address] Brennon Galvan PA [address] [place] [address] 04/07/2025 2:15 PM EDT Office Visit [facility] Department of Internal Medicine & Nephrology [address] [phone] Lalit Rodriguez MD [address] [place] [address] [phone] documented as of this encounter Visit Diagnoses Not on filedocumented in this encounter Care Teams Advocacy Director Relationship Specialty Start Date End Date Lalit Rodriguez MD [address] [place] [phone] PCP - General Nephrology 08/12/19 Mercy Montoya APRN [address] [place] [address] PCP - [place] Commercial Attributed 03/20/24 Ameya Tucker MD [address] [address] Cardiovascular Disease 10/23/21 documented as of this encounter
--- OUTSIDE RECORDS SUMMARY | 2024-12-16 14:23 | XMS_ITS | Encounter Summary ---
Author Organization [facility] Address [address] [place] [address] Care Team Providers Care Foreign Language Instructor Name Role Phone Lalit Rodriguez MD Primary Care Provider [phone] Ameya Tucker MD Unavailable [phone] Mercy Montoya APRN Unavailable Encounter Details Date Type Department Care Team (Late st Contact Info) Description 04/08/2024 Scanned Document [facility] Department of Internal Medicine & Nephrology [place] [address] [phone] Lalit Rodriguez MD 85 [facility] 900 [place], [place] [phone] Social History Tobacco Use Types Packs/Day Years [...] Description 12/22/2024 11:30 AM EST Telemedicine [facility]GI [address] [address] Cris Barrett PA-C [address] [place] [phone] 12/23/2024 2:30 PM EST Office Visit [facility] Department of Pulmonology [place] [address] [place] [address] 109 [place] [phone] [place] [address] [place] [address] 105 [place] [address] 04/04/2025 3:00 PM EDT Office Visit [facility] Department of Cardiology [place] [address] [place] [address] Brennon Galvan PA [address] [place] [address] 04/07/2025 2:15 PM EDT Office Visit [facility] Department of Internal Medicine & Nephrology [address] [phone] Lalit Rodriguez MD [address] [place] [address] [phone] documented as of this encounter Visit Diagnoses Not on filedocumented in this encounter Care Teams Foreign Language Instructor Relationship Specialty Start Date End Date Lalit Rodriguez MD [address] [place] [address] [phone] PCP - General Nephrology 08/12/19 Mercy Mnotoya APRN [address] [place] [address] PCP - [place] Commercial Attributed 03/20/24 Ameya Tucker MD [address] [address] Cardiovascular Disease 10/23/21 documented as of this encounter
--- OUTSIDE RECORDS SUMMARY | 2024-12-16 14:23 | XMS_ITS | Encounter Summary ---
Author Organization [facility] Address [address] [place] [address] Care Team Providers Care Potato Seed Cutter Name Role Phone Lalit Rodriguez MD Primary Care Provider Ameya Tucker MD Unavailable [phone] Mercy Montoya APRN Unavailable Encounter Details Date Type Department Care Team (Late st Contact Info) Description 11/23/2024 Telephone [facility] Department of Internal Medicine & Nephrology [place] [address] [place] [address] [address] [place] [address] Lalit Rodriguez MD 85 [facility] [address] [place], [place] [phone] Social History Tobacco Use Types Packs/Day Years [...] PM EDT documented as of this encounter Miscellaneous Notes * Telephone Encounter - Deborah Recinos MA - 11/24/2024 10:13 AM EST Pt was notified she will wait until March * Telephone Encounter - Lalit Rodriguez MD - 11/23/2024 4:42 PM EST So she is overdue for physical, she does have 1 scheduled in March but she can move it up. We can discuss the pros and cons of these medications with her at that time * Telephone Encounter - Deborah Recinos MA - 11/23/2024 2:56 PM EST Pt called she would like to know if you can prescrbe zepbound for her especially with her f/h and her recent health issues. documented in this encounter Plan of Treatment Upcoming Encounters Date Type Department Care Team (Late st Contact Info) Description 12/22/2024 11:30 AM EST Telemedicine [facility]GI [facility] 5 [facility] 2nd [facility] [place] [phone] Cris Barrett PA-C 5 [facility] 2nd [place] [address] 12/23/2024 2:30 PM EST Office Visit [facility] Department of Pulmonology [place] 1260 [facility] [address] [place] [address] Barbara Hewitt MD 1260 [facility] 105 [place], [place] [phone] 04/04/2025 3:00 PM EDT Office Visit [facility] Department of Cardiology [place] [address] [place] [address] Brennon Galvan PA [address] [place] [address] 04/07/2025 2:15 PM EDT Office Visit [facility] Department of Internal Medicine & Nephrology [place] [address] [phone] Lalit Rodriguez MD [address] [phone] documented as of this encounter Visit Diagnoses Not on filedocumented in this encounter Care Teams Potato Seed Cutter Relationship Specialty Start Date End Date Lalit Rodriguez MD [address] [phone] PCP - General Nephrology 08/12/19 Mercy Montoya APRN 65 [place] [address] PCP - [place] Commercial Attributed 03/20/24 Ameya Tucker MD [address] [place] [address] Cardiovascular Disease 10/23/21 documented as of this encounter
--- OUTSIDE RECORDS SUMMARY | 2024-12-16 14:23 | XMS_ITS | Encounter Summary ---
Author Organization [facility] Address [address] [place] [address] Care Team Providers Care Core Cleaner Name Role Phone Lalit Rodriguez MD Primary Care Provider Ameya Tucker MD Unavailable [phone] Mercy Montoya APRN Unavailable [phone] Reason for Visit * Reason Comments Prior Authorization Medication Refill Encounter Details Date Type Department Care Team (Late st Contact Info) Description 11/22/[address] [address] Julio C Cao MD [address] [place] [address] [phone] Prior Authorization; Medication Refill Social History Tobacco Use Types Packs/Day Years [...] encounter Miscellaneous Notes * Telephone Encounter - Barb Snyder - 11/25/2024 2:24 PM EST Called and lvm to make med refill appt, can see EVA * Telephone Encounter - Caren Salcedo RN - 11/24/2024 12:16 PM ESTSummary: PA Request PA has been submitted for Ubrelvy and waiting for a response. * Telephone Encounter - Pat Coburn LPN - 11/22/2024 11:35 AM EST Medication refill request forwarded to Dr. Cao. * Telephone Encounter - Barb Snyder - 11/22/2024 11:18 AM EST Patients pharmacy called in for a new script on Ubrelvy 100 mg. This also needs a PA. Please advise. documented in this encounter Plan of Treatment Upcoming Encounters Date Type Department Care Team (Late st Contact Info) Description 12/22/2024 11:30 AM EST Telemedicine [facility] 5 [facility] 2nd [place] [phone] Cris Barrett, PA-C [address] [place] [phone] 12/23/2024 2:30 PM EST Office Visit [facility] Department of Pulmonology [place] [address] [place] [address] [address] [place] [phone] Barbara Hewitt MD 1260 [facility] 105 [place], [place] [phone] 04/04/2025 3:00 PM EDT Office Visit [facility] Department of Cardiology [place] [address] [place] [phone] Brennon Galvan PA [address] [place] [address] 04/07/2025 2:15 PM EDT Office Visit [facility] Department of Internal Medicine & Nephrology [place] [address] [facility] [address] [place] [address] Lalit Rodriguez MD 85 [facility] [address] [place], [place] [phone] documented as of this encounter Visit Diagnoses Not on filedocumented in this encounter Care Teams Core Cleaner Relationship Specialty Start Date End Date Lalit Rodriguez MD 85 [facility] [address] [place], [place] [phone] PCP - General Nephrology 08/12/19 Mercy Montoya APRN [address] [place] [address] PCP - [place] [employer] Attributed 03/20/24 Ameya Tucker MD 1260 [facility] [address] Cardiovascular Disease 10/23/21 documented as of this encounter
--- OUTSIDE RECORDS SUMMARY | 2024-12-16 14:23 | XMS_ITS | Encounter Summary ---
Author Organization [facility] Address [address] [place] [address] Care Team Providers Care Asphalt Plant Worker Name Role Phone Lalit Rodriguez MD Primary Care Provider Ameya Tucker MD Unavailable [phone] Mercy Montoya APRN Unavailable Encounter Details Date Type Department Care Team (Late st Contact Info) Description 07/23/2024 Scanned Document [facility]phrology [place] [address] [address] Lalit Rodriguez MD 85 [facility] 900 [place], [place] [phone] Social History Tobacco Use Types Packs/Day Years [...] Description 12/22/2024 11:30 AM EST Telemedicine [facility]GI [address] [address] Cris Barrett PA-C [address] [place] [phone] 12/23/2024 2:30 PM EST Office Visit [facility] Department of Pulmonology [place] [address] [place] [address] 109 [place] [phone] [place] [address] [place] [address] 105 [place] [address] 04/04/2025 3:00 PM EDT Office Visit [facility] Department of Cardiology [place] [address] [place] [address] Brennon Galvan PA [address] [place] [address] 04/07/2025 2:15 PM EDT Office Visit [facility] Department of Internal Medicine & Nephrology [address] [phone] Lalit Rodriguez MD [address] [place] [phone] documented as of this encounter Visit Diagnoses Not on filedocumented in this encounter Care Teams Asphalt Plant Worker Relationship Specialty Start Date End Date Lalit Rodriguez MD [address] [place] [phone] PCP - General Nephrology 08/12/19 Mercy Montoya APRN [address] [place] [address] PCP - [place] Commercial Attributed 03/20/24 Ameya Tucker MD [address] [address] Cardiovascular Disease 10/23/21 documented as of this encounter
--- OUTSIDE RECORDS SUMMARY | 2024-12-16 14:23 | XMS_ITS | Clinical Summary ---
Author Organization [facility] Address [address] [place] [address] Care Team Providers Care Cryptologic Supervisor Name Role Phone Lalit Rodriguez MD Primary Care Provider [phone] Allergies Active Allergy Reactions Criticality Noted Date Comments Ciprofloxacin Rash Medium 02/02/2017 Codeine Rash Low 02/02/2017 Hydromorphone 11/10/2018 Iodinated Contrast Media 07/20/2021 Iodine And Iodide Containing Products Rash Medium 02/02/2017 Latex 07/20/2021 Morphine Rash Low 02/02/2017 Oxycodone-Acetaminophen Rash High 02/02/2017 Medications No known medications Social History Tobacco Use Types Packs/Day Years Used Date Smoking Tobacco: Never Assessed Comments No Sex and Gender Information Value Date Recorded Sex Assigned at Not on file Legal Sex Female 3:18 AM EST Gender Identity Not on file Sexual Orientation Not on file Last Filed Vital Signs Vital Sign Reading Time Taken Comments Blood Pressure 153/95 07/20/2021 4:20 PM EDT Pulse 71 07/20/2021 1:56 PM EDT Temperature 36.9 ??C (98.4 ??F) 07/20/2021 1:56 PM ED T Respiratory Rate 18 07/20/2021 1:56 PM EDT Oxygen Saturation 98% 07/20/2021 1:56 PM EDT Inhaled Oxygen Concentration - - Weight 59 kg (130 lb) 07/20/2021 1:56 PM EDT Height 160 cm (5' 3 ) 07/20/2021 1:56 PM EDT Body Mass Index 23.03 07/20/2021 1:56 PM EDT Plan of Treatment Health Maintenance Due Date Last Done Comments CT Colonography 1960 FIT-DNA (Cologuard) 1960 FIT 1960 FOBT 1960 Flex Sigmoidoscopy - 5y 1960 HIV Screening 1960 Pap Smear 1981 Cervical Cancer Screening 1990 HPV/Cotest 1990 COVID-19 Vaccine ( season) 2024 01/24/2021, 12/30/2020 Influenza Vaccine (#1) 2024 10/23/2022, 2020 Breast Cancer Screening 04/15/2025 04/15/20 23, 04/15/2023, 11/29/2021, Additional history exists Colonoscopy 12/03/2026 12/03/2016 Colorectal Cancer Screening 12/03/2026 DTaP,Tdap,and Td Vaccines (3 - Td or Tdap) 12/28/2031 12/27/2021, 02/20/2011 Pneumococcal Vaccine: Pediatrics (0 to 5 Years) and At-Risk Patients (6 to 64 Years) Aged Out 12/15/2019 No longer eligible based on patient's age to complete this topic Zoster Vaccines Completed 03/05/2022, 12/27/2021 HPV Vaccines Aged Out No longer eligi [...] on patient's age to complete this topic Insurance ANTHEM - OUT OF STATE MEDICARE PART A ONLY Care Teams Cryptologic Supervisor Relationship Specialty Start Date End Date Lalit Rodriguez MD [address] [address] PCP - General Internal Medicine 07/20/21
--- OUTSIDE RECORDS SUMMARY | 2024-12-16 14:23 | XMS_ITS | Encounter Summary ---
Author Organization [facility] Address [address] [place] [address] Care Team Providers Care Merchandise Shopper Name Role Phone Lalit Rodriguez MD Primary Care Provider [phone] Ameya Tucker MD Unavailable [phone] Mercy Montoya APRN Unavailable Encounter Details Date Type Department Care Team (Late st Contact Info) Description 05/13/2024 Scanned Document [facility] & Nephrology [place] [address] [phone] Lalit Rodriguez MD 85 [facility] 900 [place], [place] [phone] Social History Tobacco Use Types Packs/Day Years [...] Description 12/22/2024 11:30 AM EST Telemedicine [facility]GI [address] [address] Cris Barrett PA-C [address] [place] [phone] 12/23/2024 2:30 PM EST Office Visit [facility] Department of Pulmonology [place] [address] [place] [address] 109 [place] [phone] [place] [address] [place] [address] 105 [place] [address] 04/04/2025 3:00 PM EDT Office Visit [facility] Department of Cardiology [place] [address] [place] [phone] Brennon Galvan PA [address] [place] [address] 04/07/2025 2:15 PM EDT Office Visit [facility] Department of Internal Medicine & Nephrology [address] [phone] Lalit Rodriguez MD [address] [place] [phone] documented as of this encounter Visit Diagnoses Not on filedocumented in this encounter Care Teams Merchandise Shopper Relationship Specialty Start Date End Date Lalit Rodriguez MD [address] [place] [phone] PCP - General Nephrology 08/12/19 Mercy Montoya APRN [address] [place] [address] PCP - [place] Commercial Attributed 03/20/24 Ameya Tucker MD [address] [address] Cardiovascular Disease 10/23/21 documented as of this encounter
--- OUTSIDE RECORDS SUMMARY | 2024-12-16 14:23 | XMS_ITS | Encounter Summary ---
Author Organization [facility] Address [address] [place] [address] Care Team Providers Care Integration Manager Name Role Phone Lalit Rodriguez MD Primary Care Provider Ameya Tucker MD Unavailable [phone] Mercy Montoya APRN Unavailable Encounter Details Date Type Department Care Team (Late st Contact Info) Description 11/23/2024 Orders Only [facility] Department of Internal Medicine & Nephrology [place] [address] [phone] Lalit Rodriguez MD [address] [address] Social History Tobacco Use Types [...] Description 12/22/2024 11:30 AM EST Telemedicine [facility]GI [address] [address] Cris Barrett PA-C [address] [place] [phone] 12/23/2024 2:30 PM EST Office Visit [facility] Department of Pulmonology [place] [address] [place] [address] 109 [place] [phone] [place] [address] [place] [address] 105 [place] [address] 04/04/2025 3:00 PM EDT Office Visit [facility] Department of Cardiology [place] [address] [place] [address] Brennon Galvan PA [address] [place] [address] 04/07/2025 2:15 PM EDT Office Visit [facility] Department of Internal Medicine & Nephrology [address] [phone] Lalit Rodriguez MD [address] [place] [phone] documented as of this encounter Visit Diagnoses Not on filedocumented in this encounter Care Teams Integration Manager Relationship Specialty Start Date End Date Lalit Rodriguez MD [address] [place] [phone] PCP - General Nephrology 08/12/19 Mercy Montoya APRN [address] [place] [phone] PCP - [place] Commercial Attributed 03/20/24 Ameya Tucker MD [address] [address] Cardiovascular Disease 10/23/21 documented as of this encounter
--- OUTSIDE RECORDS SUMMARY | 2024-12-16 14:23 | XMS_ITS | Encounter Summary ---
Author Organization [facility] Address [address] [place] [address] Care Team Providers Care Payroll Master Name Role Phone Lalit Rodriguez MD Primary Care Provider [phone] Ameya Tucker MD Unavailable [phone] Mercy Montoya APRN Unavailable [phone] Encounter Details Date Type Department Care Team (Late st Contact Info) Description 04/08/2024 Scanned Document [facility] Department of Internal Medicine & Nephrology [place] [address] [place] [address] [address] [place] [address] Lalit Rodriguez MD 85 [facility] [address] [place], [place] [phone] Social History Tobacco Use Types Packs/Day Years [...] 12/22/2024 11:30 AM EST Telemedicine [facility]GI [address] [address] Cris Barrett PA-C [address] [place] [phone] 12/23/2024 2:30 PM EST Office Visit [facility] Department of Pulmonology [place] [address] [place] [address] 109 [place] [phone] Barbara Hewitt MD 1260 [facility] 105 [place], [place] [phone] 04/04/2025 3:00 PM EDT Office Visit [facility] Department of Cardiology [place] [address] [place] [address] Brennon Galvan PA [address] [place] [address] 04/07/2025 2:15 PM EDT Office Visit [facility] Department of Internal Medicine & Nephrology [address] [address] Lalit Rodriguez MD [address] [place] [phone] documented as of this encounter Visit Diagnoses Not on filedocumented in this encounter Care Teams Payroll Master Relationship Specialty Start Date End Date Lalit Rodriguez MD [address] [place] [phone] PCP - General Nephrology 08/12/19 Mercy Montoya APRN [address] [place] [address] PCP - [place] Commercial Attributed 03/20/24 Ameya Tucker MD [address] [address] Cardiovascular Disease 10/23/21 documented as of this encounter
--- OUTSIDE RECORDS SUMMARY | 2024-12-16 14:23 | XMS_ITS | Encounter Summary ---
Author Organization [facility] Address [address] [place] [address] Care Team Providers Care Truck Driver Teamster Name Role Phone Lalit Rodriguez MD Primary Care Provider Ameya Tucker MD Unavailable [phone] Mercy Montoya APRN Unavailable Encounter Details Date Type Department Care Team (Late st Contact Info) Description 05/03/2024 Scanned Document [facility] Department of Internal Medicine & Nephrology [place] [address] [phone] Lalit Rodriguez MD 85 [facility] 900 [place], [place] [phone] Social History Tobacco Use Types Packs/Day Years [...] Description 12/22/2024 11:30 AM EST Telemedicine [facility]GI [address] [address] Cris Barrett PA-C [address] [place] [phone] 12/23/2024 2:30 PM EST Office Visit [facility] Department of Pulmonology [place] [address] [place] [address] 109 [place] [phone] [place] [address] [place] [address] 105 [place] [address] 04/04/2025 3:00 PM EDT Office Visit [facility] Department of Cardiology [place] [address] [place] [address] Brennon Galvan PA [address] [place] [address] 04/07/2025 2:15 PM EDT Office Visit [facility] Department of Internal Medicine & Nephrology [address] [phone] Lalit Rodriguez MD [address] [place] [phone] documented as of this encounter Visit Diagnoses Not on filedocumented in this encounter Care Teams Truck Driver Teamster Relationship Specialty Start Date End Date Lalit Rodriguez MD [address] [place] [phone] PCP - General Nephrology 08/12/19 Mercy Montoya APRN [address] [place] [address] PCP - [place] Commercial Attributed 03/20/24 Ameya Tucker MD [address] [address] Cardiovascular Disease 10/23/21 documented as of this encounter
--- OUTSIDE RECORDS SUMMARY | 2024-12-16 14:23 | XMS_ITS | Clinical Summary ---
Author Organization [facility] Address [address] [place] [address] Care Team Providers Care Digital Project Manager Name Role Phone Tin Rodriguez MD Primary Care Provider Ameya Tucker MD Unavailable [phone] Mercy Montoya APRN Unavailable [phone] Allergies Active Allergy Reactions Criticality Noted Date Comments Ceftriaxone Unknown/Patient and Family Unable to Define Medium 03/02/2019 Ciprofloxacin Rash/Dermatitis Medium 02/02/2017 Codeine Rash/Dermatitis Low 11/26/2016 Gadobutrol Itching,Rash/Dermati tis,GI Intolerance/Nausea/Vomitin g Low 11/25/2023 Hydromorphone Other (See Comments) 11/10/2018 Iodinated Contrast Media Rash/Dermatitis ,Unknown/Pa ericant and Family Unable to Define Medium 06/26/2016 Latex Rash/Dermatitis Low 11/26/2016 Morphine Rash/Dermatitis,Hives Medium 06/26/2016 Oxycodone-Acetaminophen Unknown/Patient and Family Unable to Define Medium 06/26/2016 Shellfish Allergy Unknown/Patient and Family Unable to Define Medium 06/26/2016 Shellfish-Derived Products Rash/Dermatitis Low 04/2017 Tyloxapol Rash/Dermatitis Low 11/26/2016 Medications Medication Sig Dispensed Refills Start Date End Date Status clonazePAM (KlonoPIN) 1 MG tablet Take 1 tablet (1 mg total) by mouth 3 (three) times a day as needed. Active Nebulizers Misc by Does not apply route. Active albuterol, preservative free, (ACCUNEB) 1.25 mg/3 mL nebulizer solutionIndications: Uncomplicated asthma, unspecified asthma severity, unspecified whether persistent USE 1 VIAL IN NEBULIZER EVERY 4 TO 6 HOURS NEEDED 150 mL 08/15/2023 Active LORazepam (ATIVAN) 1 MG tabletIndications:An xiety Take 1 tablet (1 mg total) by mouth 3 times daily (every 8 hours) as needed for anxiety. 4 tablet 10/29/2023 Active ubrogepant (Ubrelvy) 100 MG tabletIndications:Mi graine with aura and with status migrainosus, not intractable Take 1 tablet (100 mg total) by mouth once as needed for migraine. Take 1 tablet as needed for migraine, may repeat 1 tablet in 2 hours if needed. Max of 2 tablets in 24 hours. 16 tablet 3 11/10/2023 Active Blood Pressure KitIndications:Prima ry hypertension,Syncope , unspecified syncope type,Cerebral aneurysm,Atrial fibrillation, unspecified type (HCC) Please check twice daily I10 I48.91 I67.1 R55 1 kit 03/03/2024 Active aspirin enteric coated (ECOTRIN LOW STRENGTH) 81 MG EC tablet Take 81 mg by mouth. 02/12/2024 Active clopidogrel (PLAVIX) 75 MG tablet 03/07/2024 Active atorvastatin (LIPITOR) 40 MG tablet Take 40 mg by mouth. 03/20/2024 Active amitriptyline (ELAVIL) 25 MG tablet Take 25 mg by mouth every evening. 04/14/2024 Active buPROPion (WELLBUTRIN XL) 150 MG 24 hr tablet 150 mg. As needed 04/30/2024 Ac tive hydrALAZINE (APRESOLINE) 25 MG tablet 25 mg. As needed 05/06/2024 Active fluticasone (FloNASE) 50 mcg/spray nasal sprayIndications:Pos t-nasal drip 1 spray into each nostril daily. 1 each 06/09/2024 Active mometasone-formotero l (DULERA) 200-5 MCG/ACT inhlaerIndications:M ild intermittent asthma with exacerbation Inhale 2 puffs 2 (two) times a day. Rinse mouth after use 53 g 06/09/2024 Active predniSONE (DELTASONE) 10 MG tabletIndications:Mo derate persistent asthma with acute exacerbation 4 tablets once daily for 3 days then 3 tablets once daily for 3 days then 2 tablets once daily for 3 days then 1 tablet once daily for 3 days 30 tablet 07/06/2024 Active PANTOprazole (PROTONIX) 40 MG EC tabletIndications:Ga stroesophageal reflux disease, unspecified whether esophagitis present Take 1 tablet (40 mg total) by mouth daily. 90 tablet 3 07/13/2024 Active gabapentin (NEURONTIN) 600 MG tabletIndications:Tr igeminal neuralgia Take 2 tablets (1,200 mg total) by mouth 3 (three) times a day. 540 tablet 3 08/16/2024 Active tirzepatide (ZEPBOUND) 2.5 mg/0.5 mL pen-injectorIndicati ons:BMI 35.0-35.9,adult Inject 1 Pen (2.5 mg total) under the skin once a week. 2 mL 1 09/10/2024 Active nitroglycerin (NITROSTAT) 0.[address] 0.4 mg under the tongue. 07/16/2024 Active Active Problems Problem Noted Date Diagnosed Date Syncope 10/18/2023 Benign essential hypertension 04/18/2023 Hyperlipidemia 04/18/2023 04/18/2023 Allergic to radiographic dye 12/15/2019 Headache 06/26/2016 04/18/2023 Asthma 03/02/2015 Cerebral aneurysm 02/20/2011 Overview (04/18/2023): Last Assessment & Plan: 56-year-old right-handed female with a history of incidental cerebral aneurysm is found on headache workup in 2008. ??She was followed in [facility] by a neurosurgeon and has since relocated to [place]. ??She is here to discuss treatment options. ??She has a history of migraines, trigeminal neuralgia on the left, fibromyalgia, asthma and multiple allergies to medication. ??Of note patient reports that she had a TIA lasted 3 days approximately 3 years ago. ?? Imaging presented last year reviewed by Dr. Harris and revealed a 3 mm left ICA wide neck bifurcation aneurysm. Imaging was reviewed back to 2007 change in size or configuration was noted.. Repeat MRA performed in [place] was read as no aneurysm. Continues to have headaches and symptoms referable to left trigeminal neuralgia. - F/U MRA in 5 years Trigeminal neuralgia 02/20/2011 04/18/2023 ANDREA on CPAP 02/09/2010 04/18/2023 Mixed anxiety depressive disorder 11/09/2009 04/18/2023 Resolved Problems Problem Noted Date Diagnosed Date Resolved Date Recurrent syncope 03/05/2024 03/17/2024 03/17/2024 Encounter for gynecological examination without abnormal finding 04/15/2023 04/18/2023 Mastodynia of left breast 04/15/2023 Dyspareunia due to medical c ondition in female 04/15/2023 04/18/2023 SOB (shortness of breath) 04/10/2023 Heart palpitations 04/10/2023 Hypertension 03/03/2023 04/18/2023 COVID 03/03/2023 04/18/2023 LUQ pain 07/09/2022 04/18/2023 Assessment & Plan (07/09/2022 1:34 PM EDT): Patient has mild LUQ pain on physical exam and nausea. No significant findings by ct scan, urine test or lab work. No longer has fever or back pain. Will take pepcid daily x 4 weeks, abd ultrasound ordered. She will rto to see her primary GI provider in 4 weeks and will contact office if pain becomes severe again or develops fever. Nausea 07/09/2022 04/18/2023 Assessment & Plan (07/09/2022 1:34 PM EDT): See below Shellfish allergy 12/15/2019 04/18/2023 Need for pneumococcal vaccination 12/15/2019 04/18/2023 Chest pain 12/09/2019 03/17/2024 Chest pain 12/09/2019 04/18/2023 MVP (mitral valve prolapse) 12/09/2019 04/18/2023 Encounters Date Type Department Care Team Description 11/23/2024 Orders Only [facility] Department of Internal Medicine & Nephrology [place] [address] [phone] Tin Rodriguez MD 11/23/2024 Telephone [facility] Department of Internal Medicine & Nephrology [place] [address] [place] [address] [address] [place] [address] Tin Rodriguez MD 11/22/[address] [facility] Headache [place] [address] [place] [phone] Julio C Cao MD Migraine with aura and with status migrainosus, not intractable 11/22/2024 Telephone [facility] [address] [facility] [address] [place] [phone] Julio C Cao MD Prior Authorization; Medication Refill 11/18/2024 1:50 PM EST Ancillary Procedure [facility] [address] [phone] 11/18/2024 1:45 PM EST Consult [facility] [address] [phone] Otto Watters, KLYSTROM TUBE TESTER Primary osteoarthritis of both knees (Primary Dx) 11/17/2024 Telephone [facility] [address] [facility] [address] [place] [phone] Laci Hallman MD 10/25/2024 Orders Only [address] [phone] Jonathan Laguna PA-C 10/01/2024 Scanned Document [address] [place] [phone] Radha Page PA-C 09/29/2024 Travel 09/21/[address] [place] [phone] Radha Page PA-C 09/15/[address] [place] [address] [address] [place] [address] Radha Page PA-C from Last 3 Months Immunizations Name Administration Dates Next Due Influenza (AFLURIA/FLUZONE) Inactivated/Split Quadrivalent with Preservative IM 07/05/2021 Influenza Inactivated/Split Preservative Free IM 07/05/2021,08/10/2020 Influenza, Quadrivalent (FLU ARIX, AFLURIA, FLULAVAL, FLUZONE) Preservative Free IM 10/23/2022 Pneumococcal Polysaccharide 23-Valent 12/15/2019 Tdap 12/27/2021,02/20/2011 Zoster Vaccine Recombinant (Shingrix) 03/05/2022 ,12/27/2021 Family History Medical History Relation Name Comments Stroke Mother Colon cancer Neg Hx Colon polyps Neg Hx Relation Name Status Comments Mother Social History Tobacco Use Types Packs/Day Years Used Date Smoking Tobacco: Never Smokeless Tobacco: Never Tobacco Cessation:Counseling Given: Not Answered Alcohol Use Standard Drinks/Week Comments No 0 [...] Orientation Heterosexual (straight) 01/08 12:43 PM EDT Last Filed Vital Signs Vital Sign Reading Time Taken Comments Blood Pressure 118/86 05/17/2024 3:29 PM EDT Pulse 61 06/17/2024 9:11 AM EDT Temperature 36.7 ??C (98.1 ??F) 12/22/2023 11:[address] Respiratory Rate 18 02/02/2024 1:59 PM EDT Oxygen Saturation 97% 06/17/2024 9:11 AM EDT Inhaled Oxygen Concentration - - Weight 88.5 kg (195 lb) 09/10/2024 2:50 PM EST Height 157.5 cm (5' 2 ) 09/10/2024 2:50 PM EST Body Mass Index 35.67 09/10/2024 2:50 PM EST Plan of Treatment Upcoming Encounters Date Type Department Care Team (Late st Contact Info) Description 12/22/2024 11:30 AM EST Telemedicine [facility] [address] [phone] Cris Barrett PA-C [address] [place] [phone] 12/23/2024 2:30 PM EST Office Visit [facility] Department of Pulmonology [place] [address] [place] [address] [address] [place] [phone] [place] [address] [place] [address] [address] [place] [address] 04/04/2025 3:00 PM EDT Office Visit [facility] Department of Cardiology [place] [address] [place] [address] Brennon Galvan PA [address] [place] [address] 04/07/2025 2:15 PM EDT Office Visit [facility] Department of Internal Medicine & Nephrology [place] [address] [facility] [address] [place] [address] Tin Rodriguez MD 85 [facility] [address] [place] [address] Health Maintenance Due Date Last Done Comments Hepatitis C Virus Screening 1960 HIV Screening 1973 Pneumococcal Vaccines 50+ (2 of 2 - PCV) 12/15/2020 12/15/2019 RSV Vaccine 60 years and older and Patients (1 - Risk 60-74 years 1-dose series) 2020 Influenza Vaccine 05/20/2024 10/23/2022, , 07/05/2021, Additional history exists COVID-19 Vaccine ( season) 2024 08/11/2023, 08/15/2022, 01/17/2022, Additional history exists Mammogram 07/20/2026 07/20/2024, 03/21, 07/25/2022, Additional history exists Colonoscopy 12/18/2026 12/18/2021, 12/03/2016 DTaP/Tdap/Td Vaccines (3 - Td or Tdap) 12/28/2031 12/27/2021, 02/20/2011 Zoster (Shingles) Vaccine Completed 03/05/2022, 07/2022 Hepatitis B Vaccines Aged Out No long er eligible based on patient's age to complete this topic Pap Smear (Ages 21-65) Discontinued Procedures Procedure Name Priority Date/Time Associated Diagnosis Comments XR KNEE 4+ VIEWS-BILATERAL Routine 11/18/2024 1:49 PM EST Primary osteoarthritis of both knees [place] ARTHROCENTESIS ASPIR&/INJ MAJOR JT/BURSA W/O US Routine 11/18/2024 1:45 PM EST Primary osteoarthritis of both knees MG SCREENING DIGITAL BREAST MARIAA- BILATERAL Routine 07/20/2024 3:51 PM EDT from Last 3 Months or Most Recently Relevant to Health Maintenance Results * XR Knee 4+ views-Bilateral (11/18/2024 1:49 PM EST) Narrative OAH - 11/18/2024 1:49 PM EST This exam was performed in office at [facility] and images reviewed by orthopedic provider. ??Any findings are documented within ambulatory encounter note on date of service. Otto Watters APRN IMG DIAGNOSTIC IMAGI NG ORDERABLES [facility] * [place] ARTHROCENTESIS ASPIR&/INJ MAJOR JT/BURSA W/O US (11/18/2024 1:45 PM EST) Narrative Otto Watters APRN - 11/18/2024 1:45 PM EST Otto Watters APRN ? 11/19/2024 ??3:17 PM Lg Joint Arthro: L knee on 11/18/2024 1:45 PM Indications: pain Details: 22 G needle, anterolateral approach Medications: 12 mg betamethasone acetate-betamethasone sodium phosphate 6 (3-3) MG/ML Outcome: tolerated well, no immediate complications Procedure, treatment alternatives, risks and benefits explained, specific risks discussed. Consent was given by the patient. Otto Watters APRN PROCEDURE/MINOR SURG ICAL ORDERABLES * MG SCREENING DIGITAL BREAST MARIAA- BILATERAL (07/20/2024 3:51 PM EDT) Anatomical Region Laterality Modality Other 07/20/2024 3:45 PM EDT 07/20/2024 3:45 PM EDT Impressions 08/17/2024 11:44 AM EDT There is no mammographic evidence of malignancy. Routine follow-up mammogram in 1 year is recommended. The patient will receive a lay summary of the results of this breast imaging exam. Lay summaries for mammography examinations will also identify the patients personal breast tissue composition as required by state law. BIRADS Category 1: Negative Thank you for referring your patient to us, Didier Redding MD [phone] (Electronically Signed - 08/17/2024 11:44) Copy: [facility]- NEPHROLOGY- [place] [address] [place] [address] )[phone] [facility]- OB-TEXTILE SCREEN PRINTER [place] [address] [place] [address] )[phone] Narrative 08/17/2024 11:44 AM EDT HISTORY: Patient is 63 years old and is seen for screening. The patient has a history of bilateral breast reduction more than 10 years ago - benign. ??The patient has no personal history of breast or ovarian cancer. The patient has the following family history of breast cancer: ??paternal aunt and sister, at age 43. FILMS COMPARED: The present examination has been compared to prior imaging studies dated 07/25/2022 and 04/15/2023. MARIAA STATEMENT: Computer-aided detection was utilized by the radiologist in the interpretation of this examination. 3D tomosynthesis digital mammographic images were obtained using standard projections. MAMMOGRAM FINDINGS: The breasts are almost entirely fatty. (ACR BIRADS density Category a) * No suspicious masses, calcifications or other abnormalities are seen in either breast. Procedure Note Didier Redding MD - 08/17/2024 HISTORY: Patient is 63 years old and is seen for screening. The patient has a history of bilateral breast reduction more than 10 yearsago - benign. The patient has no personal history of breast or ovariancancer. The patient has the following family history of breast cancer: paternalaunt and sister, at age 43. FILMS COMPARED: The present examination has been compared to prior imaging studies dated1 and 04/15/2023. MARIAA STATEMENT: Computer-aided detection was utilized by the radiologist in theinterpretation of this examination. 3D tomosynthesis digital mammographic images were obtained using standardprojections. MAMMOGRAM FINDINGS: The breasts are almost entirely fatty. (ACR BIRADS density Category a) * No suspicious masses, calcifications or other abnormalities are seen ineither breast. IMPRESSION: There is no mammographic evidence of malignancy. Routine follow-up mammogram in 1 year is recommended. The patient will receive a lay summary of the results of this breastimaging exam. Lay summaries for mammography examinations will alsoidentify the patients personal breast tissue composition as required [facility] law. BIRADS Category 1: Negative Thank you for referring your patient to us, Didier Redding MD [phone] (Electronically Signed - 08/17/2024 11:44) Copy: TIN [facility]- NE[facility]- [place] [address] [facility] [address] [place] [address] [facility]- OB-TEXTILE SCREEN PRINTER [place] [address] [place] [address] Generic Provider IMG LEGACY PROCEDURE S from Last 3 Months or Most Recently Relevant to Health Maintenance Advance Directives Documents on File Type Date Recorded Patient Blind Aide Expl anation Advance Directive-Scan 12/27/2022 12:16 PM BLOODLESS 12/24/2022 HH * Full Code (Latest Code Status on File) Date Activated Date Inactivated Comments 10/18/2023 2:45 AM Question Answer Comments Decision Thoroughly Discussed with: Patient * Full Code Date Activated Date Inactivated Comments 12/09/2019 1:27 PM 11/16/2020 3:50 PM Question Answer Comments Decision Thoroughly Discussed with: Patient Care Teams Digital Project Manager Relationship Specialty Start Date End Date Tin Rodriguez MD [address] [place] [address] PCP - General Nephrology 08/12/19 Mercy Montoya APRN [address] [place] [address] PCP - [place] Commercial Attributed 03/20/24 Ameya Tucker MD [address] [phone] Cardiovascular Disease 10/23/21
--- OUTSIDE RECORDS SUMMARY | 2024-12-16 14:23 | XMS_ITS | Encounter Summary ---
Author Organization [facility] Address [address] [place] [address] Care Team Providers Care Drum Maker Name Role Phone Lalit Rodriguez MD Primary Care Provider Ameya Tucker MD Unavailable [phone] Mercy Montoya APRN Unavailable [phone] Encounter Details Date Type Department Care Team (Late st Contact Info) Description 04/06/2024 Scanned Document [facility] Department of [facility] & Nephrology [place] [address] [address] Lalit Rodriguez MD 85 [facility] 900 [place], [place] [phone] Social History Tobacco Use Types Packs/Day Years [...] 12/22/2024 11:30 AM EST Telemedicine [facility] [address] [address] Cris Barrett PA-C [address] [place] [phone] 12/23/2024 2:30 PM EST Office Visit [facility] Department of Pulmonology [place] [address] [place] [address] [address] [place] [phone] [place] [address] [place] [address] [address] [place] [address] 04/04/2025 3:00 PM EDT Office Visit [facility] Department of Cardiology [place] [address] [place] [address] Brennon Galvan PA [address] [place] [address] 04/07/2025 2:15 PM EDT Office Visit [facility] Department of Internal Medicine & Nephrology [address] [phone] Lalit Rodriguez MD [address] [place] [phone] documented as of this encounter Visit Diagnoses Not on filedocumented in this encounter Care Teams Drum Maker Relationship Specialty Start Date End Date Lalit Rodriguez MD [address] [place] [phone] PCP - General Nephrology 08/12/19 Mercy Montoya APRN [address] [place] [address] PCP - [place] Commercial Attributed 03/20/24 Ameya Tucker MD [address] [address] Cardiovascular Disease 10/23/21 documented as of this encounter
--- OUTSIDE RECORDS SUMMARY | 2024-12-16 14:23 | XMS_ITS | Encounter Summary ---
Author Organization [facility] Address [address] [place] [address] Care Team Providers Care Field Representative Name Role Phone Lalit Rodriguez MD Primary Care Provider Ameya Tucker MD Unavailable [phone] Mercy Montoya APRN Unavailable Encounter Details Date Type Department Care Team (Late st Contact Info) Description 06/03/2024 Scanned Document [facility] & Nephrology [place] [address] [place] [address] [address] [place] [address] Lalit Rodriguez MD 85 [facility] [address] [place], [place] [phone] Social History Tobacco Use Types Packs/Day Years [...] Description 12/22/2024 11:30 AM EST Telemedicine [facility] [address] [address] Cris Barrett PA-C [address] [place] [phone] 12/23/2024 2:30 PM EST Office Visit [facility] Department of Pulmonology [place] [address] [place] [address] [address] [place] [phone] Barbara Hewitt MD 1260 [facility] [address] [place], [place] [phone] 04/04/2025 3:00 PM EDT Office Visit [facility] Department of Cardiology [place] [address] [place] [address] Brennon Galvan PA [address] [place] [address] 04/07/2025 2:15 PM EDT Office Visit [facility] Department of Internal Medicine & Nephrology [address] [address] Lalit Rodriguez MD [address] [place] [phone] documented as of this encounter Visit Diagnoses Not on filedocumented in this encounter Care Teams Field Representative Relationship Specialty Start Date End Date Lalit Rodriguez MD [address] [place] [phone] PCP - General Nephrology 08/12/19 Mercy Montoya APRN [address] [place] [address] PCP - [place] [employer] Attributed 03/20/24 Ameya Tucker MD [address] [address] Cardiovascular Disease 10/23/21 documented as of this encounter
--- OUTSIDE RECORDS SUMMARY | 2024-12-16 14:23 | XMS_ITS | Encounter Summary ---
Author Organization [facility] Address [address] [place] [address] Care Team Providers Care Energy Broker Name Role Phone Lalit Rodriguez MD Primary Care Provider Ameya Tucker MD Unavailable [phone] Mercy Montoya APRN Unavailable Encounter Details Date Type Department Care Team (Late st Contact Info) Description 11/18/2024 1:50 PM EST [facility]illary [facility] [address] [phone] Social History Tobacco Use Types Packs/Day Years [...] Description 12/22/2024 11:30 AM EST Telemedicine [facility] [address] [address] Cris Barrett PA-C [address] [place] [phone] 12/23/2024 2:30 PM EST Office Visit [facility] Department of Pulmonology [place] [address] [place] [address] [address] [place] [phone] [place] [address] [place] [address] [address] [place] [address] 04/04/2025 3:00 PM EDT Office Visit [facility] Department of Cardiology [place] [address] [place] [phone] Brennon Galvan PA [address] [place] [address] 04/07/2025 2:15 PM EDT Office Visit [facility] Department of Internal Medicine & Nephrology [place] [address] [facility] [address] [place] [address] Lalit Rodriguez MD 85 [facility] [address] [place] [address] documented as of this encounter Procedures Procedure Name Priority Date/Time Associated Diagnosis Comments XR KNEE 4+ VIEWS-BILATERAL Routine 11/18/2024 1:49 PM EST Primary osteoarthritis of both knees documented in this encounter Results * XR Knee 4+ views-Bilateral (11/18/2024 1:49 PM EST) Narrative OAH - 11/18/2024 1:49 PM EST This exam was performed in office at [facility] and images reviewed by orthopedic provider. ??Any findings are documented within ambulatory encounter note on date of service. Otto Watters APRN IMG DIAGNOSTIC IMAGI NG ORDERABLES [facility] documented in this encounter Visit Diagnoses Not on filedocumented in this encounter Care Teams Energy Broker Relationship Specialty Start Date End Date Lalit Rodriguez MD 85 [facility] [address] [place], [place] [phone] PCP - General Nephrology 08/12/19 Mercy Montoya APRN [address] [place] [address] PCP - [place] Commercial Attributed 03/20/24 Ameya Tucker MD [address] [address] Cardiovascular Disease 10/23/21 documented as of this encounter
--- OUTSIDE RECORDS SUMMARY | 2024-12-16 14:23 | XMS_ITS | Encounter Summary ---
Author Organization [facility] Address [address] [place] [address] Care Team Providers Care School Library Media Program Director Name Role Phone Lalit Rodriguez MD Primary Care Provider [phone] Ameya Tucker MD Unavailable [phone] Mercy Montoya APRN Unavailable Encounter Details Date Type Department Care Team (Late st Contact Info) Description 06/01/2024 Scanned Document [facility] Department [facility] Medicine & Nephrology [place] [address] [address] Lalit Rodriguez MD 85 [facility] 900 [place], [place] [phone] Social History Tobacco Use Types Packs/Day Years [...] Description 12/22/2024 11:30 AM EST Telemedicine CTGI [address] [address] Cris Barrett PA-C [address] [place] [phone] 12/23/2024 2:30 PM EST Office Visit [facility] Department of Pulmonology [place] [address] [place] [address] 109 [place] [phone] [place] [address] [place] [address] 105 [place] [address] 04/04/2025 3:00 PM EDT Office Visit [facility] Department of Cardiology [place] [address] [place] [address] Brennon Galvan PA [address] [place] [address] 04/07/2025 2:15 PM EDT Office Visit [facility] Department of Internal Medicine & Nephrology [address] [phone] Lalit Rodriguez MD [address] [place] [phone] documented as of this encounter Visit Diagnoses Not on filedocumented in this encounter Care Teams School Library Media Program Director Relationship Specialty Start Date End Date Lalit Rodriguez MD [address] [place] [phone] PCP - General Nephrology 08/12/19 Mercy Montoya APRN [address] [place] [address] PCP - [place] Commercial Attributed 03/20/24 Ameya Tucker MD [address] [address] Cardiovascular Disease 10/23/21 documented as of this encounter
--- OUTSIDE RECORDS SUMMARY | 2024-12-16 14:23 | XMS_ITS | Encounter Summary ---
Author Organization [facility] Address [address] [place] [address] Care Team Providers Care Doper Name Role Phone Lalit Rodriguez MD Primary Care Provider [phone] Ameya Tucker MD Unavailable [phone] Mercy Montoya APRN Unavailable Encounter Details Date Type Department Care Team (Late st Contact Info) Description 07/19/2024 Scanned Document [facility] Department of Internal Medicine & Nephrology [place] [address] [address] Lalit Rodriguez MD 85 [facility] 900 [place], [place] [phone] Social History Tobacco Use Types Packs/Day Years [...] 12/22/2024 11:30 AM EST Telemedicine CTGI [address] [address] Cris Barrett PA-C [address] [place] [phone] 12/23/2024 2:30 PM EST Office Visit [facility] Department of Pulmonology [place] [address] [place] [address] 109 [place] [address] [place] [address] [place] [address] 105 [place] [address] 04/04/2025 3:00 PM EDT Office Visit [facility] Department of Cardiology [place] [address] [place] [address] Brennon Galvan PA [address] [place] [address] 04/07/2025 2:15 PM EDT Office Visit [facility] Department of Internal Medicine & Nephrology [address] [phone] Lalit Rodriguez MD [address] [place] [phone] documented as of this encounter Visit Diagnoses Not on filedocumented in this encounter Care Teams Doper Relationship Specialty Start Date End Date Lalit Rodriguez MD [address] [place] [phone] PCP - General Nephrology 08/12/19 Mercy Montoya APRN [address] [place] [address] PCP - [place] Commercial Attributed 03/20/24 Ameya Tucker MD [address] [address] Cardiovascular Disease 10/23/21 documented as of this encounter
--- OUTSIDE RECORDS SUMMARY | 2024-12-16 14:23 | XMS_ITS | Encounter Summary ---
Author Organization [facility] Address [address] [place] [address] Care Team Providers Care Ornament Stitcher Name Role Phone Lalit Rodriguez MD Primary Care Provider Ameya Tucker MD Unavailable [phone] Mercy Montoya APRN Unavailable Encounter Details Date Type Department Care Team (Late st Contact Info) Description 11/22/2024 [facility] Headache [place] [address] [place] [phone] Julio C Cao MD 65 [facility] 508 [place], [place] [phone] Migraine with aura and with status migrainosus, not intractable Social History Tobacco Use Types Packs/Day Years [...] make med refill appt, can see EVA documented in this encounter Plan of Treatment Upcoming Encounters Date Type Department Care Team (Late st Contact Info) Description 12/22/2024 11:30 AM EST Telemedicine [address] [phone] Cris Barrett PA-C [address] [place] [phone] 12/23/2024 2:30 PM EST Office Visit [facility] Department of Pulmonology [place] [address] [facility] [address] [place] [phone] Barbara Hewitt MD 1260 [facility] [place] 105 [place] [address] 04/04/2025 3:00 PM EDT Office Visit [facility] Department of Cardiology [place] [address] [place] [address] Brennon Galvan PA 289 [place] [address] 04/07/2025 2:15 PM EDT Office Visit [facility] Department of Internal Medicine & Nephrology [place] 85 [facility] [place] 900 [place] [phone] Lalit Rodriguez MD 85 [facility] [place] 900 [place], [place] [phone] documented as of this encounter Visit Diagnoses Diagnosis Migraine with aura and with status migrainosus, not intractable documented in this encounter Care Teams Ornament Stitcher Relationship Specialty Start Date End Date Lalit Rodriguez MD [address] [address] PCP - General Nephrology 08/12/19 Mercy Montoya APRN [address] [place] [address] PCP - [place] Commercial Attributed 03/20/24 Ameya Tucker MD 1260 [facility] 109 [place] [address] Cardiovascular Disease 10/23/21 documented as of this encounter
--- OUTSIDE RECORDS SUMMARY | 2024-12-16 14:23 | XMS_ITS | Encounter Summary ---
Author Organization [employer] [facility] Address [address] [place] [address] 7 [place] [address] Care Team Providers Care Geophysics Teacher Name Role Phone Tl [place] MD Primary Care Prov ider Encounter Details Date Type Department Care Team (Late st Contact Info) Description 08/09/2024 Orders Only [facility] [address] [place] [address] Provider, MD Mary Social History Tobacco Use [...] 3:15 PM EDT Office Visit [facility] 505 [place] [address] Tl [place] MD 505 [place] [address] documented as of this encounter Procedures Procedure Name Priority Date/Time Associated Diagnosis Comments PET MYOCARDIAL PERFUSION MULTIPLE Routine 08/05/2024 2:40 PM EDT documented in this encounter Results * PET myocardial perfusion multiple (08/05/2024 2:40 PM EDT) us Historical Provider CV CARDIAC NUCLEAR PROCED URES Final Result documented in this encounter Visit Diagnoses Not on filedocumented in this encounter Care Teams Geophysics Teacher Relationship Specialty Start Date End Date Tl [place] MD [address] [place] [address] PCP - General Internal Medicine 06/25/24 documented as of this encounter
--- OUTSIDE RECORDS SUMMARY | 2024-12-16 14:23 | XMS_ITS | Encounter Summary ---
Author Organization [facility] Address [address] [place] [address] Care Team Providers Care Nutrition Program Instructor Name Role Phone Lalit Rodriguez MD Primary Care Provider Ameya Tucker MD Unavailable [phone] Mercy Montoya APRN Unavailable [phone] Encounter Details Date Type Department Care Team (Late st Contact Info) Description 10/01/2024 Scanned Document CT[facility] [address] [place] [phone] Radha Page PA-C [address] [place] [address] Social History Tobacco Use Types Packs/Day Years [...] Description 12/22/2024 11:30 AM EST Telemedicine [facility]GI [address] [address] Cris Barrett PA-C [address] [place] [phone] 12/23/2024 2:30 PM EST Office Visit [facility] Department of Pulmonology [place] [address] [place] [address] 109 [place] [address] [place] [address] [place] [address] 105 [place] [address] 04/04/2025 3:00 PM EDT Office Visit [facility] Department of Cardiology [place] [address] [place] [address] Brennon Galvan PA [address] [place] [address] 04/07/2025 2:15 PM EDT Office Visit [facility] Department of Internal Medicine & Nephrology [address] [phone] Lalit Rodriguez MD [address] [place] [phone] documented as of this encounter Visit Diagnoses Not on filedocumented in this encounter Care Teams Nutrition Program Instructor Relationship Specialty Start Date End Date Lalit Rodriguze MD [address] [place] [phone] PCP - General Nephrology 08/12/19 Mercy Montoya APRN [address] [place] [address] PCP - [place] Commercial Attributed 03/20/24 Ameya Tucker MD [address] [address] Cardiovascular Disease 10/23/21 documented as of this encounter
--- OUTSIDE RECORDS SUMMARY | 2024-12-16 14:23 | XMS_ITS | Encounter Summary ---
Author Organization [facility] Address [address] [place] [address] Care Team Providers Care Structural Analysis Engineer Name Role Phone Lalit Rodriguez MD Primary Care Provider Ameya Tucker MD Unavailable [phone] Mercy Montoya APRN Unavailable Encounter Details Date Type Department Care Team (Late st Contact Info) Description 06/03/2024 Scanned Document [facility] Department of Internal Medicine & Nephrology [place] [address] [place] [address] [address] [place] [address] Lalit Rodriguez MD 85 [facility] [address] [place], [place] [phone] Social History Tobacco Use Types Packs/Day Years [...] 12/22/2024 11:30 AM EST Telemedicine CTGI [address] [address] Cris Barrett PA-C [address] [place] [phone] 12/23/2024 2:30 PM EST Office Visit [facility] Department of Pulmonology [place] [address] [place] [address] 109 [place] [address] Barbara Hewitt MD 1260 [facility] 105 [place], [place] [phone] 04/04/2025 3:00 PM EDT Office Visit [facility] Department of Cardiology [place] [address] [place] [address] Brennon Galvan PA [address] [place] [address] 04/07/2025 2:15 PM EDT Office Visit [facility] Department of Internal Medicine & Nephrology [address] [address] Lalit Rodriguez MD [address] [place] [phone] documented as of this encounter Visit Diagnoses Not on filedocumented in this encounter Care Teams Structural Analysis Engineer Relationship Specialty Start Date End Date Lalit Rodriguez MD [address] [place] [phone] PCP - General Nephrology 08/12/19 Mercy Montoya APRN [address] [place] [address] PCP - [place] Commercial Attributed 03/20/24 Ameya Tucker MD [address] [address] Cardiovascular Disease 10/23/21 documented as of this encounter
--- OUTSIDE RECORDS SUMMARY | 2024-12-16 14:23 | XMS_ITS | Encounter Summary ---
Author Organization [facility] Address [address] [place] [address] Care Team Providers Care Personal Chef Name Role Phone Lalit Rodriguez MD Primary Care Provider Ameya Tucker MD Unavailable [phone] Mercy Montoya APRN Unavailable Encounter Details Date Type Department Care Team (Late st Contact Info) Description 03/29/2024 Scanned Document [facility] Department of Internal Medicine & Nephrology [place] [address] [place] [address] [address] [place] [address] Lalit Rodriguez MD 85 [facility] [address] [place], [place] [phone] Social History Tobacco Use Types Packs/Day Years [...] Description 12/22/2024 11:30 AM EST Telemedicine CTGI [address] [address] Cris Barrett PA-C [address] [place] [phone] 12/23/2024 2:30 PM EST Office Visit [facility] Department of Pulmonology [place] [address] [place] [address] 109 [place] [address] Barbara Hewitt MD 1260 [facility] 105 [place] [phone] 04/04/2025 3:00 PM EDT Office Visit [facility] Department of Cardiology [place] [address] [place] [address] Brennon Galvan PA [address] [place] [address] 04/07/2025 2:15 PM EDT Office Visit [facility] Department of Internal Medicine & Nephrology [address] [address] Lalit Rodriguez MD [address] [place] [phone] documented as of this encounter Visit Diagnoses Not on filedocumented in this encounter Care Teams Personal Chef Relationship Specialty Start Date End Date Lalit Rodriguez MD [address] [place] [phone] PCP - General Nephrology 08/12/19 Mercy Montoya APRN [address] [place] [address] PCP - [place] Commercial Attributed 03/20/24 Ameya Tucker MD [address] [address] Cardiovascular Disease 10/23/21 documented as of this encounter
--- OUTSIDE RECORDS SUMMARY | 2024-12-16 14:23 | XMS_ITS | Encounter Summary ---
Author Organization [facility] Address [address] [place] [address] Care Team Providers Care Twister Frame Tender Name Role Phone Lalit Rodriguez MD Primary Care Provider Ameya Tucker MD Unavailable [phone] Mercy Montoya APRN Unavailable Encounter Details Date Type Department Care Team (Late st Contact Info) Description 05/13/2024 Scanned Document [facility] Department [facility] Internal Medicine & Nephrology [place] [address] [address] Lalit Rodriguez MD 85 [facility] 900 [place], [place] [phone] Social History Tobacco Use Types Packs/Day Years [...] Description 12/22/2024 11:30 AM EST Telemedicine CTGI [address] [address] Cris Barrett PA-C [address] [place] [phone] 12/23/2024 2:30 PM EST Office Visit [facility] Department of Pulmonology [place] [address] [place] [address] 109 [place] [phone] [place] [address] [place] [address] 105 [place] [address] 04/04/2025 3:00 PM EDT Office Visit [facility] Department of Cardiology [place] [address] [place] [address] Brennon Galvan PA [address] [place] [address] 04/07/2025 2:15 PM EDT Office Visit [facility] Department of Internal Medicine & Nephrology [address] [phone] Lalit Rodriguez MD [address] [place] [phone] documented as of this encounter Visit Diagnoses Not on filedocumented in this encounter Care Teams Twister Frame Tender Relationship Specialty Start Date End Date Lalit Rodriguez MD [address] [place] [phone] PCP - General Nephrology 08/12/19 Mercy Montoya APRN [address] [place] [address] PCP - [place] Commercial Attributed 03/20/24 Ameya Tucker MD [address] [address] Cardiovascular Disease 10/23/21 documented as of this encounter
--- OUTSIDE RECORDS SUMMARY | 2024-12-16 14:23 | XMS_ITS | Encounter Summary ---
Author Organization [facility] Address [address] [place] [address] Care Team Providers Care Manager Council Name Role Phone Lalit Rodriguez MD Primary Care Provider Ameya Tucker MD Unavailable [phone] Mercy Montoya APRN Unavailable Reason for Referral * (Routine) - Pending Review Specialty Diagnoses / Procedures Referred By Ioana frye Referred To Contact Orthopedic Surgery Diagnoses Primary osteoarthritis of both knees Otto Watters, LAMINE [address] [address] Referral ID Status Reason Start Date Expiration Date V isits Requested Visits Authorized [id number] Pending Review 11/19/2024 11/20/2025 1 1 Scheduling Instructions See if durolane is an option with their insurance, they are traveling far so 1 injection would be better than the 3 part series Comments Bilateral knees Reason for Visit * Reason Comments Pain Pain Encounter Details Date Type Department Care Team ([facility] st Contact Info) Description 11/18/2024 1:45 PM EST Consult [facility] [address] [phone] Otto Watters APRN 31 [facility] [address] [place] [address] Primary osteoarthritis of both knees (Primary Dx) Social History Tobacco Use Types [...] PM EDT documented as of this encounter Progress Notes * Otto Watters, TAG AND LABEL CUTTER - 11/18/2024 1:45 PM ESTAssociated Order(s): Lg Joint Arthro: L knee Post-Procedure Diagnose(s): Primary osteoarthritis of both knees Images from the original note were not included. [address] [facility] [address] [phone] 11/18/2024 Assessment & Plan 1. Primary osteoarthritis of both knees XR Knee 4+ views-Bilateral OAH Visco Injection Authorization Request 63 y.o. female with advanced bilateral knee tricompartmental degenerative osteoarthrosis, left being more symptomatic. We will treat conservatively. Today I discussed the pathology, progression, and conservative treatment options available for osteoarthrosis. The patient has elected to pursue a conservative course and will engage in a targeted home exercise program emphasizing low impact aerobic activities. Discussed the importance of maintaining a healthy lifestyle/weight with diet and exercise. May try topical analgesics, Tylenol, ice, elevation, activity modifications, oral anti-inflammatories if able to tolerate, and the application of knee braces and intra-articular steroid verses visco supplementation injections if they desire. After reviewing risks and benefits we proceeded with a left knee intra-articular corticosteroid injection, post injection information was discussed. Emphasized fall precautions, continue to ambulate with a assistive device and working with her physical therapy program. We will seek authorization for hyaluronic acid injections for both of her knees and see her back once obtained. History of Present Illness: Roxanne Beal is a 63 y.o. female who is accompanied with her son today, medical history significant for brain surgeries for aneurysms. She is currently working with physical therapy towards gait balance and lower extremity strengthening exercises. She lives with her son in [place]. She is very weak, bilateral knees are sore predominantly in the medial compartments. No prior knee surgical history. She denies injury. Prior MRI of her left knee back in January 2022 revealed presence of minimal intermargin tear of the lateral meniscus peripheral undersurface tearing of the body of the medialmeniscus with medial compartment degenerative osteoarthrosis. Physical Exam Seated in her wheelchair, in no acute distress, examination of both knees discomfort in all 3 compartments, range of motion she is short about 5 degrees of full extension further flexion to 110 degrees, no gross ligamentous instability with varus/valgus stressing, negative Davide's negative anterior and posterior drawer test, intact extensor mechanism, calf soft nontender sensation intact distally Imaging Imaging Impression: Today radiographs were obtained 4 views bilateral knees weightbearing demonstrates tricompartmental degenerative changes with loss of joint space, no obvious bony injury Past Medical History, Medication, Allergies Past Medical History: Diagnosis Date Anxiety Asthma At high risk for injury related to fall balance off with stroke Blood transfusion declined because patient is Worship Brain aneurysm CVA (cerebral vascular accident) (HCC) left side weakness Fibromyalgia Hiatal hernia Hypertension Mitral valve prolapse Pneumonia PONV (postoperative nausea and vomiting) Shortness of breath Sleep apnea with use of continuous positive airway pressure (CPAP) Trigeminal neuralgia of left side of face Unspecified asthma(493.90) Asthma: 2006-04-10 17:02:24 Past Surgical History: Procedure Laterality Date BRAIN SURGERY SECTION CHOLECYSTECTOMY COLONOSCOPY N/A 12/18/2021 Procedure: COLONOSCOPY; Surgeon: Laci Hallman MD; Location: GI Endoscopy; Service: Gastroenterology; Laterality: N/A; ENDOSCOPY ENDOSCOPY UPPER N/A 12/24/2022 Procedure: ENDOSCOPY UPPER; Surgeon: Laci Hallman MD; Location: GI Endoscopy; Service:Gastroenterology; Laterality: N/A; EXCISION ABDOMINAL TUMOR HYSTERECTOMY KIDNEY SURGERY urine reflux MA COLONOSCOPY FLX DX W/COLLJ SPEC WHEN PFRMD Left 12/03/2016 Procedure: COLONOSCOPY; Surgeon: Laci Hallman MD; Location: GI Endoscopy; Service: Gastroenterology Family History Problem Relation Age of Onset Stroke Mother Colon cancer Neg Hx Colon polyps Neg Hx Social History Tobacco Use Smoking status: Never Smokeless tobacco: Never Vaping Use Vaping status: Never Used Substance Use Topics Alcohol use: No Drug use: No Current Outpatient Medications: albuterol, preservative free, (ACCUNEB) 1.25 mg/3 mL nebulizer solution, USE 1 VIAL IN NEBULIZER EVERY 4 TO 6 HOURS NEEDED, Disp: 150 mL, Rfl: 0 amitriptyline (ELAVIL) 25 MG tablet, Take 25 mg by mouth every evening., Disp: , Rfl: aspirin enteric coated (ECOTRIN LOW STRENGTH) 81 MG EC tablet, Take 81 mg by mouth., Disp: , Rfl: atorvastatin (LIPITOR) 40 MG tablet, Take 40 mg by mouth., Disp: , Rfl: Blood Pressure Kit, Please check twice daily I10 I48.91 I67.1 R55, Disp: 1 kit, Rfl: 0 buPROPion (WELLBUTRIN XL) 150 MG 24 hr tablet, 150 mg. As needed, Disp: , Rfl: clonazePAM (KlonoPIN) 1 MG tablet, Take 1 tablet (1 mg total) by mouth 3 (three) times a day as needed., Disp: , Rfl: clopidogrel (PLAVIX) 75 MG tablet, , Disp: , Rfl: fluticasone (FloNASE) 50 mcg/spray nasal spray, 1 spray into each nostril daily., Disp: 1 each, Rfl: 0 gabapentin (NEURONTIN) 600 MG tablet, Take 2 tablets (1,200 mg total) by mouth 3 (three) times a day., Disp: 540 tablet, Rfl: 3 hydrALAZINE (APRESOLINE) 25 MG tablet, 25 mg. As needed, Disp: , Rfl: LORazepam (ATIVAN) 1 MG tablet, Take 1 tablet (1 mg total) by mouth 3 times daily (every 8 hours) as needed for anxiety., Disp: 4 tablet, Rfl: 0 mometasone-formoterol (DULERA) 200-5 MCG/ACT inhlaer, Inhale 2 puffs 2 (two) times a day. Rinse mouth after use, Disp: 53 g, Rfl: 0 Nebulizers Misc, by Does not apply route., Disp: , Rfl: nitroglycerin (NITROSTAT) 0.4 MG SL tablet, Place 0.4 mg under the tongue., Disp: , Rfl: PANTOprazole (PROTONIX) 40 MG EC tablet, Take 1 tablet (40 mg total) by mouth daily., Disp: 90 tablet, Rfl: 3 predniSONE (DELTASONE) 10 MG tablet, 4 tablets once daily for 3 days then 3 tablets once daily for 3 days then 2 tablets once daily for 3 days then 1 tablet once daily for 3 days, Disp: 30 tablet, Rfl: 0 tirzepatide (ZEPBOUND) 2.5 mg/0.5 mL pen-injector, Inject 1 Pen (2.5 mg total) under the skin once a week., Disp: 2 mL, Rfl: 1 ubrogepant (Ubrelvy) 100 MG tablet, Take 1 tablet (100 mg total) by mouth once as needed for migraine. Take 1 tablet as needed for migraine, may repeat 1 tablet in 2 hours if needed. Max of 2 tabletsin 24 hours., Disp: 16 tablet, Rfl: 3 Allergies Allergen Reactions Ceftriaxone Unknown/Patient and Family Unable to Define Ciprofloxacin Rash/Dermatitis Iodinated Contrast Media Rash/Dermatitis and Unknown/Patient and Family Unable to Define Morphine Rash/Dermatitis and Hives Oxycodone-Acetaminophen Unknown/Patient and Family Unable to Define Shellfish Allergy Unknown/Patient and Family Unable to Define Hydromorphone Other (See Comments) Codeine Rash/Dermatitis Gadavist [Gadobutrol] Itching, Rash/Dermatitis and GI Intolerance/Nausea/Vomiting Latex Rash/Dermatitis Shellfish-Derived Products Rash/Dermatitis Tyloxapol Rash/Dermatitis Procedure Lg Joint Arthro: L knee on 11/18/2024 1:45 PM Indications: pain Details: 22 G needle, anterolateral approach Medications: 12 mg betamethasone acetate-betamethasone sodium phosphate 6 (3-3) MG/ML Outcome: tolerated well, no immediate complications Procedure, treatment alternatives, risks and benefits explained, specific risks discussed. Consent was given by the patient. Otto Watters APRN Supervised by: Dr. Sabi MD documented in this encounter Plan of Treatment Upcoming Encounters Date Type Department Care Team (Late st Contact Info) Description 12/22/2024 11:30 AM EST Telemedicine [address] [phone] Cris Barrett PA-C [address] [place] [phone] 12/23/2024 2:30 PM EST Office Visit [facility]icians Department of Pulmonology [place] [address] [place] [address] [address] [place] [phone] Barbara Hewitt MD 1260 [facility] 105 [place] [address] 04/04/2025 3:00 PM EDT Office Visit [facility] Department of Cardiology [place] [address] [place] [phone] Brennon Galvan PA [address] [place] [address] 04/07/2025 2:15 PM EDT Office Visit [facility] Physicians Department of Internal Medicine & Nephrology [place] [address] [facility] [address] [place] [address] Lalit Rodriguez MD 85 [facility] 900 [place] [address] Scheduled Referrals Name Type Priority Associated Diagnoses Orde r Schedule OAH Visco Injection Authorization Request Outpatient Referral Routine Primary osteoarthritis of both knees Ordered: 11/19/2024 documented as of this encounter Procedures Procedure Name Priority Date/Time Associated Diagnosis Comments XR KNEE 4+ VIEWS-BILATERAL Routine 11/18/2024 1:49 PM EST Primary osteoarthritis of both knees MA ARTHROCENTESIS ASPIR&/INJ MAJOR JT/BURSA W/O US Routine 11/18/2024 1:45 PM EST Primary osteoarthritis of both knees documented in this encounter Results * XR Knee 4+ views-Bilateral (11/18/2024 1:49 PM EST) Narrative OAH - 11/18/2024 1:49 PM EST This exam was performed in office at [facility] [place] and images reviewed by orthopedic provider. ??Any findings are documented within ambulatory encounter note on date of service. Otto Watters APRN [facility] NG ORDERABLES OA * MA ARTHROCENTESIS ASPIR&/INJ MAJOR JT/BURSA W/O US (11/18/2024 1:45 PM EST) Narrative Otot Watters APRN - 11/18/2024 1:45 PM EST [...] Consent was given by the patient. Otto P Duong TAG AND LABEL CUTTER PROCEDURE/MINOR SURG ICAL ORDERABLES documented in this encounter Visit Diagnoses Diagnosis Primary osteoarthritis of both knees- Primary documented in this encounter Administered Medications Inactive Administered Medications - up to 1 most recent administrations Medication Order MAR Action Action Date Dose Rate Site betamethasone acetate-betamethasone sodium phosphate (CELESTONE) injection 12 mg 12 mg, Intra-articular, Once PRN Procedure, Starting on Mervat 11/18/24 at 1345, For 1 dose Given 11/18/2024 1:45 PM EST 12 mg documented in this encounter Care Teams Manager Council Relationship Specialty Start Date End Date Lalit Rodriguez MD [address] [place] [address] PCP - General Nephrology 08/12/19 Mercy Montoya APRN [address] [place] [address] PCP - Thomas [employer] Attributed 03/20/24 Ameya Tucker MD [address] [address] Cardiovascular Disease 10/23/21 documented as of this encounter
--- OUTSIDE RECORDS SUMMARY | 2024-12-16 14:23 | XMS_ITS | Encounter Summary ---
Author Organization [facility] Address [address] [place] [address] Care Team Providers Care Squeegeer And Former Name Role Phone Lalit Rodriguez MD Primary Care Provider [phone] Ameya Tucker MD Unavailable [phone] Mercy Montoya APRN Unavailable Encounter Details Date Type Department Care Team (Late st Contact Info) Description 05/03/2024 Scanned Document [facility] Department of Internal Medicine & Nephrology [place] [address] [place] [address] [address] [place] [address] Lalit Rodriguez MD 85 [facility] [address] [place], [place] [phone] Social History Tobacco Use Types Packs/Day Years [...] Description 12/22/2024 11:30 AM EST Telemedicine [facility] [address] [phone] Cris Barrett PA-C [address] [place] [phone] 12/23/2024 2:30 PM EST Office Visit [facility] Physicians Department of Pulmonology [place] [address] [place] [address] [address] [place] [phone] Barbara Hewitt MD 1260 [facility] 105 [place], [place] [phone] 04/04/2025 3:00 PM EDT Office Visit [facility] Physicians Department of Cardiology [place] [address] [place] [phone] Brennon Gavlan PA [address] [place] [address] 04/07/2025 2:15 PM EDT Office Visit [facility] Physicians Department of Internal Medicine & Nephrology [address] [address] Lalit Rodriguez MD [address] [place] [phone] documented as of this encounter Visit Diagnoses Not on filedocumented in this encounter Care Teams Squeegeer And Former Relationship Specialty Start Date End Date Lalit Rodriguez MD [address] [place] [phone] PCP - General Nephrology 08/12/19 Mercy Montoya APRN [address] [place] [phone] PCP - Trail Commercial Attributed 03/20/24 Ameya Tucker MD [address] [address] Cardiovascular Disease 10/23/21 documented as of this encounter
--- OUTSIDE RECORDS SUMMARY | 2024-12-16 14:23 | XMS_ITS | Encounter Summary ---
Author Organization [employer] Address [address] [facility] 7 [place] [address] Care Team Providers Care Utilities Manager Name Role Phone Tl Clark MD Primary Care Prov ider Reason for Visit * Reason Onset Date Comments FYI 06/24/2024 Encounter Details Date Type Department Care Team (Late st Contact Info) Description 06/24/2024 Telephone [facility] MED[facility] [address] [place] [address] Tl Clark MD [address] [place] [address] FYI Social History Tobacco Use Types Packs/Day Years Used Date Smoking Tobacco: Never Assessed Comments Unknown Sex and Gender Information Value Date Recorded Sex Assigned at Female 06/25/2024 8:19 AM EDT Legal Sex Female 11:04 AM EDT Gender Identity Female 06/25/2024 8:19 AM EDT Sexual Orientation Straight 06/25/2024 8: 19 AM EDT documented as of this encounter Miscellaneous Notes * Telephone Encounter - Rachid Henao - 06/24/2024 3:28 PM EDT Tc from Marjorie with [facility] calling to inform pcp after initial new patient visit pt will need a PE and or a full wellness check for the [facility] program. Marjorie stated pt is very forgetful so she wanted an FYI sent. If any questions for Marjorie at [phone]. documented in this encounter Plan of Treatment Upcoming Encounters Date Type Department Care Team (Late st Contact Info) Description 01/05/2025 3:15 PM EDT Office Visit [facility] MED & PEDS [address] [place] [address] Tl Clark MD [address] [place] [address] documented as of this encounter Visit Diagnoses Not on filedocumented in this encounter Care Teams Utilities Manager Relationship Specialty Start Date End Date Tl Clark MD [address] [place] [address] PCP - General Internal Medicine 06/25/24 documented as of this encounter
--- OUTSIDE RECORDS SUMMARY | 2024-12-16 14:23 | XMS_ITS | Patient Health Record ---
Author Organization [facility] [place], Address [address] [facility] [address] [place] [address] Support Name Relationship Address Phone Roxanne Beal Guarantor Unknown [phone] Allergies Allergen (clinical drug ingredient) Drug/Non Drug Allergy documented on EMR Reaction Allergy Type Onset Date Status ALL PAIN KILLERS (uncoded) Unknown Allergy Active Iodine Unknown Drug Allergy Active Latex Latex Unknown Allergy Active Shellfish (FN) Shellfish-derived Products Unknown Drug Allergy Active Reason For Referral No Information Medications Medication SIG (Take, Route, Fr equency, Duration) Notes Start Date End Date Status Zolpidem Tartrate Ac tive Pregabalin Active amLODIPine Besylate Active KlonoPIN Active Symbicort Active Metoprolol Tartrate Active Plan Of Treatment No Information Insurance Providers Payer Name Payer Address Payer Phone Subscriber Number Group Number Insured Name Patient Relationship to Insured Coverage Start Date Coverage End Date [facility] [address] [place] [address] [phone] [id number] Roxanne Beal Self - patient is the insured Medical (General) History Medical History History ICD Code DEPRESSION KIDNEY DISEASE HEART DISEASE HIGH BLOOD PRESSURE ASTHMA ANXIETY OTHERS: FIRBOMYALGIA Surgical History Surgery Date(Month/Year) GALLBLADER REMOVAL 5 ABDOMINAL TUMOR REMOVAL (BENIGN) KIDNEY STONES
--- OUTSIDE RECORDS SUMMARY | 2024-12-16 14:23 | XMS_ITS | Encounter Summary ---
Author Organization [employer] Address [address] [place] [address] 7 [place] [address] Care Team Providers Care Evp Head Of [employer] Experience Strategy Name Role Phone Tl Clark MD Primary Care Prov ider Reason for Visit * Reason Onset Date Comments Prior Authorization 12/15/2024 Encounter Details Date Type Department Care Team ([facility] Contact Info) Description 12/15/2024 Telephone [facility] [address] [place] [address] Tl Clark MD [address] [place] [address] Prior Authorization Social History Tobacco Use Types Packs/Day Years [...] encounter Miscellaneous Notes * Telephone Encounter - Cari Bradley LPN - 12/15/2024 11:00 AM EST PA generated for [employer] via CMM pending insurance decision. documented in this encounter Plan of Treatment Upcoming Encounters Date Type Department Care Team (Late st Contact Info) Description 01/05/2025 3:15 PM EDT Office Visit [facility] [address] [place] [address] Tl Clark MD [address] [place] [address] documented as of this encounter Visit Diagnoses Not on filedocumented in this encounter Additional Health Concerns Assessment Noted Time PHQ-9 Depression Total Score: 0 12/07/19 25 11:10 AM EST documented as of this encounter Care Teams Evp Head [employer] Experience Strategy Relationship Specialty Start Date End Date Tl Clark MD [address] [place] [address] PCP - General Internal Medicine 06/25/24 documented as of this encounter
--- OUTSIDE RECORDS SUMMARY | 2024-12-16 14:23 | XMS_ITS | Encounter Summary ---
Author Organization [facility] Address [address] [place] [address] Care Team Providers Care Medical Assistant Ob Gyn Name Role Phone Lalit Rodriguez MD Primary Care Provider Ameya Tucker MD Unavailable [phone] Mercy Montoya APRN Unavailable Encounter Details Date Type Department Care Team (Late st Contact Info) Description 05/24/[address] [facility] Center [address] [phone] [phone] Social History Tobacco Use Types Packs/Day Years [...] Description 12/22/2024 11:30 AM EST Telemedicine [facility] [address] [phone] Cris Barrett PA-C [address] [place] [phone] 12/23/2024 2:30 PM EST Office Visit [facility] Physicians Department of Pulmonology [place] [address] [place] [address] [address] [place] [phone] Barbara Hewitt MD 1260 [facility] 105 [place] [address] 04/04/2025 3:00 PM EDT Office Visit [facility] Department of Cardiology [place] [address] [place] [address] Brennon Galvan PA [address] [place] [address] 04/07/2025 2:15 PM EDT Office Visit [facility] Physicians Department of Internal Medicine & Nephrology [address] [address] Lalit Rodriguez MD [address] [place] [phone] documented as of this encounter Visit Diagnoses Not on filedocumented in this encounter Care Teams Medical Assistant Ob Gyn Relationship Specialty Start Date End Date Lalit Rodriguez MD [address] [place] [phone] PCP - General Nephrology 08/12/19 Mercy Montoya APRN [address] [place] [id number] PCP - [place] Commercial Attributed 03/20/24 Ameya Tucker MD [address] [phone] Cardiovascular Disease 10/23/21 documented as of this encounter
--- OUTSIDE RECORDS SUMMARY | 2024-12-16 14:24 | XMS_ITS | Encounter Summary ---
Author Organization [facility] Address [address] [place] [address] Care Team Providers Care Chiropractic Care Name Role Phone Lalit Rodriguez MD Primary Care Provider Ameya Tucker MD Unavailable [phone] Mercy Montoya APRN Unavailable [phone] Encounter Details Date Type Department Care Team (Late st Contact Info) Description 11/17/2024 Telephone [facility] [address] [place] [address] Laci Hallman MD [address] [place], [place] [phone] Social History Tobacco Use Types Packs/Day Years [...] encounter Miscellaneous Notes * Telephone Encounter - Albina Watt - 11/17/2024 4:06 PM EST TeleMedicine Verbal Consent Patient identified by name and . The patient has verbally agreed to participate in telemedicine as part of their treatment. They understand that ???telemedicine?? includes the practice of health care delivery, diagnosis, consultation, treatment, and education using interactive audio and/or video. The patient understands they have the following rights with respect to telemedicine: (1) Withhold or withdraw consent at any time (2) The information disclosed both to and from the provider is confidential. (3) There are risks and benefits from TeleMedicine. Benefits include increased access to medical care, efficiency, and convenience. Risks include technology malfunction and the visit may not be as complete as [id number] services. (4) Results from a telemedicine visit cannot be guaranteed or assured. (5) Right to access their medical information and copies of medical records in accordance with law. The patient was advised of the potential risks, consequences and benefits of telemedicine. They hadan opportunity to ask questions about this information and their questions were answered. The patient understands the verbal information offered from above. The provider will also review consent withthe patient at the start of the appointment. documented in this encounter Plan of Treatment Upcoming Encounters Date Type Department Care Team (Late st Contact Info) Description 12/22/2024 11:30 AM EST Telemedicine [facility] [address] [facility] [address] [place] [phone] Cris Barrett PA-C [address] [place] [phone] 12/23/2024 2:30 PM EST Office Visit [facility] Department of Pulmonology [place] [address] [facility] [address] [place] [phone] Barbara Hewitt MD [address] [facility] [address] [place], [place] [phone] 04/04/2025 3:00 PM EDT Office Visit [facility] Department of Cardiology [place] [address] [place] [address] Brennon Galvan PA [address] [place] [phone] 04/07/2025 2:15 PM EDT Office Visit [facility] Department of Internal Medicine & Nephrology [place] [address] [phone] Lalit Rodriguez MD [address] [phone] documented as of this encounter Visit Diagnoses Not on filedocumented in this encounter Care Teams Chiropractic Care Relationship Specialty Start Date End Date Lalit Rodriguez MD [address] [phone] PCP - General Nephrology 08/12/19 Mercy Montoya APRN [address] [place] [id number] PCP - [place] [employer] Attributed 03/20/24 Ameya Tucker MD [address] [address] Cardiovascular Disease 10/23/21 documented as of this encounter
[2024-12-16 14:35] LABS: Basophils Percent Auto 0.3 % (0-2); Eosinophils Absolute Auto 0.2 X10*3/uL (0.0-0.4); Eosinophils Percent Auto 3.1 % (0-4); Hematocrit 38.7 % (37.0-47.0); Hemoglobin 13.1 g/dl (12.0-16.0); Imm Gran Abs Auto 0.02 X10*3/uL (0.00-0.03); Imm Gran Pct Auto 0.3 % (0.0-0.4); Lymphocytes Absolute Auto 1.4 X10*3/uL (1.2-4.9); Lymphocytes Percent Auto 24.3 % (20-40); Mean Corpuscular HGB Conc 33.9 g/dl (31.0-35.0); Mean Corpuscular Hemoglobin 30.1 pg (27.0-33.0); Mean Platelet Volume 11.3 fL (9.4-12.3); Monocytes Absolute Auto 0.5 X10*3/uL (0.1-1.2); Monocytes Percent Auto 7.8 % (2-11); Neutrophils Absolute Auto 3.7 x10*3/uL (2.0-8.3); Neutrophils Percent Auto 64.2 % (45-73); Platelet Count 341 X10*3/uL (160-400); Red Blood Count 4.35 X10*6/uL (4.20-5.50); Red Cell Distribution Width 13.4 % (11.0-16.0); White Blood Count 5.8 X10*3/uL (4.8-10.8)
[2024-12-16 15:26] LABS: Alanine Aminotransferase 25 U/L (0-31); Albumin Level 4.2 g/dL (3.5-5.0); Alkaline Phosphatase 120 U/L (39-117); Anion Gap 11 (12-20); Aspartate Amino Transferase 27 U/L (5-31); Blood Urea Nitrogen 13 mg/dL (9-16); Calcium 9.6 mg/dL (8.4-10.2); Carbon Dioxide 26 mmol/L (22-29); Chloride 109 mmol/L (96-108); Cholesterol 160 mg/dL (<200); Estimated Glomerular Filt Rate > 60; Glucose Random 96 mg/dL (60-115); HDL Cholesterol 60 mg/dL (>40); LDL Cholesterol Calculated 87 mg/dL (<100); Potassium 4.3 mmol/L (3.3-5.1); Sodium 142 mmol/L (135-145); TSH reflex Free T4 1.12 uIU/mL (0.32-4.0); Triglycerides 69 mg/dL (<150)
[2024-12-17 08:07] LABS: ~HepC Num1 0.12 S/CO (0.00-0.79); ~Hepatitis C Antibody Nonreactive (Nonreactive)
== END 2024-12-16 11:43 | disposition home or self-care (01) ==
LOC: HO.CHCLDS 11:42
PROVIDERS: Visit Provider Internal Medicine
DX: I10 Essential (primary) hypertension (principal)
CPT/HCPCS: 36415; 80053; 80061; 84443; 85025; 86803